=== PATIENT | male | born 1955 | race Caucasian/White ===

== ENCOUNTER 2021-05-12 19:30 | Inpatient (IN) ==
[2021-05-12] MEDS ORDERED: THIAMINE HCL 200 MG in SODIUM CHLORIDE 0.9% 50 ML IV STA (19:44)
[2021-05-12] MEDS ORDERED: dilTIAZem HCl 5 MG/ML 5 ML VIAL IV STA ×2 (19:44→21:18)
[2021-05-12] MEDS ORDERED: SODIUM CHLORIDE 0.9% 1000ML 1,000 ML IV SCH (19:45)
--- NOTE | 2021-05-12 19:54 | Emergency Department Note ---
Impression & Plan Atrial fibrillation with RVR ED Provider Note NAME: GISELE HODGES AGE: 65 SEX: M : 1955 ARRIVES VIA: Walk-In INFORMANT: Patient, ED PROVIDER(S): Mahad Pike DO CHIEF COMPLAINT: Palpitations HPI: The patient is a 65-year-old male who presented to the emergency department for evaluation of palpitations. The patient has been experiencing palpitations over the course of the last week. He states his symptoms are waxing and waning. He started noticing difficulty breathing especially with exertion. He notices no fever or cough. He denies having any chest pain. He has been noticing that his heart rate is a regular and fast. He has never had a history of a dysrhythmia in the past. He was not seen by his family doctor for the symptoms. The patient does not take any cardiac medications. He does admit to drinking alcohol daily. He did not have any alcohol today however. The patient denies having any syncope. He denies having any fever or swelling in his legs. He has had no cough. The patient did present to the [facility] and was sent to the emergency department for further evaluation. ROS: See a the patient is a 65-year-old male who presented to the emergency department for an evaluation of heart palpitations. sonja HPI for pertinent positives & negatives. A total of 10 systems reviewed and were otherwise negative. PAST MEDICAL HISTORY: See Below PAST SURGICAL HISTORY: See Below FAMILY HISTORY: See Below SOCIAL HISTORY: See Below HOME MEDICATIONS: See Below ALLERGIES: See Below VITALS: See Below PHYSICAL EXAMINATION: GENERAL: Patient is awake alert in no acute distress patient is resting comfortably and showing no signs of anxiety EYES: The conjunctivae are clear. The pupils are round and reactive. EARS, NOSE, MOUTH AND THROAT: The nose is without any evidence of any deformity. Mucous membranes are moist. Tongue is midline. NECK: The neck is nontender and supple. RESPIRATORY: Normal respiratory effort is noted there is no evidence of wheezing rhonchi or rales CARDIOVASCULAR: Tachycardic and irregular heart sounds were noted to auscultation. There was no definite murmur. GASTROINTESTINAL: The abdomen is soft. Abdomen is nontender. MUSCULOSKELETAL/EXTREMITIES: There is no evidence of gross deformity full range of motion is noted in the hips and shoulders. SKIN: There is no obvious evidence of any rash. There are no petechiae, pallor or cyanosis noted. NEUROLOGIC: Patient is awake alert and oriented x3. MEDICAL DECISION MAKING: The patient is a 65-year-old male who presented to the emergency department for an evaluation of palpitations. The patient has a history of daily alcohol use. He does not have a history of atrial fibrillation. The patient started noticing palpitations and went to [facility]. He was sent directly to the emergency department for an evaluation of atrial fibrillation which would be a new diagnosis for him. He was treated with IV fluids and IV calcium channel blockers in the emergency department. He was reevaluated multiple times. I discussed the patient's laboratory and radiographic studies with him. Given his findings I [facility] to evaluate the patient in the emergency department for further management and disposition. Triage Nursing notes reviewed. Prior medical records reviewed Vital Signs: reviewed and remarkable for tachycardia. Differential diagnosis: Premature contractions, electrolyte abnormality, cardiac dysrhythmia, thyroid dysfunction, pulmonary embolism, infection, gastrointestinal, as well as other pathologies. ER treatment provided: See below Diagnostics interpreted by me: ECG: EKG was obtained in the emergency department. My interpretation is atrial fibrillation with RVR. Rate was [address] segment abnormalities were noted. This was compared to the tracing it was obtained at [facility] this evening. No significant changes were noted. Cardiac Monitoring: An order was placed for continuous cardiac monitoring. The monitor shows a rate of 107 bpm with atrial fibrillation rhythm. Laboratory studies: As stated above and show below. Imaging studies: See below Consultation(s): 2149: I discussed this case with Dr. Pina who [facility] They will evaluate the patient in the emergency department for further management and disposition. ED COURSE: Procedures: none PDMP:reviewed and no issues Critical Care: I have personally spent greater than 35 minutes of critical care time in the direct management of this patient. This includes bedside care, interpretation of diagnostic studies, and testing, discussion with consultants, patient, and family members, and other required patient management activities. This 35 minutes is in excess of all separately billable procedures. Past Med/Surg History Medical History History of head injury Social History Smoking Status: Never smoker Hx Alcohol Use: Yes Alcohol type: wine Alcohol Intake Frequency: 4 or More x per/Week Feels Safe at Home: Yes Allergies Allergies Allergy/AdvReac Type Severity Reaction Status Date / Time No Known Allergies Allergy Unverified 05/12/21 20:27 Home Meds Home Medications Medication Instructions Recorded Confirmed ibuprofen 200 mg tablet 800 mg PO Q6H PRN 05/12/21 05/12/21 paroxetine HCl 20 mg tablet 20 mg PO DAILY 05/12/21 05/12/21 Results & Data (ED) Vital Signs Vital Signs - 24 hr 05/12/21 19:32 05/12/21 19:46 05/12/21 19:48 Temperature 36.4 C L Temperature Source Temporal Artery Scan Pulse Rate 129 H 149 H Pulse Rate [Apical] Pulse Rate from SpO2 Sensor 108 H Pulse Rhythm Irregular Respiratory Rate 18 13 Respiratory Effort / Characteristics Non-Labored Spontaneous Respiratory Depth Normal Blood Pressure 129/86 128/104 H Blood Pressure [Left Arm] Blood Pressure Mean 100 112 Blood Pressure Mean [Left Arm] Pulse Oximetry 98 98 96 Oxygen Delivery Method Room Air Room Air Sepsis Recent Fever Within 48 Hours No Sepsis New/Unexplained Change in Mental Status N/A Sepsis Action Taken by Nursing No Action Required 05/12/21 20:23 05/12/21 21:30 05/12/21 22:00 Temperature Temperature Source Pulse Rate 143 H 128 H Pulse Rate [Apical] Pulse Rate from SpO2 Sensor 100 H 114 H Pulse Rhythm Respiratory Rate 22 21 Respiratory Effort / Characteristics Non-Labored Spontaneous Respiratory Depth Normal Blood Pressure 141/103 H 123/93 Blood Pressure [Left Arm] Blood Pressure Mean 115 103 Blood Pressure Mean [Left Arm] Pulse Oximetry 97 93 98 Oxygen Delivery Method Room Air Sepsis Recent Fever Within 48 Hours Sepsis New/Unexplained Change in Mental Status Sepsis Action Taken by Nursing 05/12/21 22:20 05/12/21 22:22 05/12/21 23:14 Temperature 37.2 C Temperature Source Oral Pulse Rate 124 H 134 H Pulse Rate [Apical] 109 H Pulse Rate from SpO2 Sensor 81 Pulse Rhythm Respiratory Rate 22 16 Respiratory Effort / Characteristics Non-Labored Spontaneous Respiratory Depth Normal Blood Pressure 147/104 H Blood Pressure [Left Arm] 103/74 Blood Pressure Mean Blood Pressure Mean [Left Arm] 83 Pulse Oximetry 97 98 Oxygen Delivery Method Room Air Sepsis Recent Fever Within 48 Hours Sepsis New/Unexplained Change in Mental Status Sepsis Action Taken by Nursing 05/13/21 00:27 Temperature 36.8 C Temperature Source Oral Pulse Rate 107 H Pulse Rate [Apical] Pulse Rate from SpO2 Sensor Pulse Rhythm Respiratory Rate 16 Respiratory Effort / Characteristics Respiratory Depth Blood Pressure 113/80 Blood Pressure [Left Arm] Blood Pressure Mean Blood Pressure Mean [Left Arm] Pulse Oximetry 98 Oxygen Delivery Method Room Air Sepsis Recent Fever Within 48 Hours Sepsis New/Unexplained Change in Mental Status Sepsis Action Taken by Correction Medications Current Medication List: was personally reviewed by me Laboratory Data Attestation: I reviewed the patient's lab results. Result diagrams: 05/12/21 19:45 05/12/21 19:45 Lab Results 05/12/21 05/12/21 05/12/21 Range/Units 19:45 19:45 19:45 WBC 9.43 (4.8-10.8) K/uL RBC 5.09 (4.7-6.1) M/uL Hgb 16.1 (14.0-18.0) g/dL Hct 46.7 (42-52) % MCV 91.7 (80-100) fL MCH 31.6 (25-34) pg MCHC 34.5 (32-36) g/dL RDW Std Deviation 44.0 (36.4-46.3) fL RDW Coeff of Rey 13.0 (11.5-14.5) % Plt Count 278 (130-400) K/uL MPV 10.1 (7.4-10.4) fL Immature Gran % (Auto) 0.1 % Neut % (Auto) 53.3 % Lymph % (Auto) 38.0 % [place] % (Auto) 5.9 % Eos % (Auto) 2.4 % Baso % (Auto) 0.3 % Neut # (Auto) 5.02 (1.4-6.5) K/uL Lymph # (Auto) 3.58 H (1.2-3.4) K/uL [place] # (Auto) 0.56 (0.11-0.59) K/uL Eos # (Auto) 0.23 (0-0.5) K/uL Baso # (Auto) 0.03 (0-0.2) K/uL Immature Gran # (Auto) 0.01 (0.00-0.02) K/uL PT 10.6 (9.0-12.0) Seconds INR 1.0 (0.9-1.1) APTT 27.6 (21.0-31.0) Seconds PTT Ratio 1.0 Sodium 139 (136-145) mmol/L Potassium 3.7 (3.5-5.1) mmol/L Chloride 108 H (98-107) mmol/L Carbon Dioxide 29 (21-32) mmol/L Anion Gap 2.0 L (3-11) BUN 17 (7-18) mg/dl Creatinine 1.25 (0.6-1.4) mg/dl Est Cr Clr Drug Dosing 70.3 ml/min Est GFR ( Amer) 70.6 ml/min Est GFR (Non-Af Amer) 60.9 ml/min BUN/Creatinine Ratio 13.6 (10-20) Glucose 91 (70-99) mg/dl Calcium 9.3 (8.5-10.1) mg/dl Magnesium 2.7 H (1.8-2.4) mg/dl Total Bilirubin 0.7 (0.2-1) mg/dl AST 23 (15-37) U/L ALT 40 (12-78) U/L Alkaline Phosphatase 74 (45-117) U/L Troponin I < 0.015 (0-0.045) ng/ml Total Protein 8.0 (6.4-8.2) gm/dl Albumin 4.2 (3.4-5.0) gm/dl Globulin 3.8 (2.5-4.0) gm/dl Albumin/Globulin Ratio 1.1 (0.9-2) TSH 2.670 (0.300-4.500) uIu/ml Urine Color Urine Appearance (Clear) Urine pH (4.5-7.5) Ur Specific [place] (1.000-1.030) Urine Protein (Negative) Urine Glucose (UA) (Negative) Urine Ketones (Negative) Urine Blood (Negative) Urine Nitrite (Negative) Urine Bilirubin (Negative) Urine Urobilinogen (Negative) Ur Leukocyte Esterase (Negative) COVID-19 Eval Order SARS-CoV-2 (PCR) (Negative) 05/12/21 05/12/21 05/12/21 Range/Units 19:55 19:55 22:40 WBC (4.8-10.8) K/uL RBC (4.7-6.1) M/uL Hgb (14.0-18.0) g/dL Hct (42-52) % MCV (80-100) fL MCH (25-34) pg MCHC (32-36) g/dL RDW Std Deviation (36.4-46.3) fL RDW Coeff of Rey (11.5-14.5) % Plt Count (130-400) K/uL MPV (7.4-10.4) fL Immature Gran % (Auto) % Neut % (Auto) % Lymph % (Auto) % [place] % (Auto) % Eos % (Auto) % Baso % (Auto) % Neut # (Auto) (1.4-6.5) K/uL Lymph # (Auto) (1.2-3.4) K/uL [place] # (Auto) (0.11-0.59) K/uL Eos # (Auto) (0-0.5) K/uL Baso # (Auto) (0-0.2) K/uL Immature Gran # (Auto) (0.00-0.02) K/uL PT (9.0-12.0) Seconds INR (0.9-1.1) APTT (21.0-31.0) Seconds PTT Ratio Sodium (136-145) mmol/L Potassium (3.5-5.1) mmol/L Chloride (98-107) mmol/L Carbon Dioxide (21-32) mmol/L Anion Gap (3-11) BUN (7-18) mg/dl Creatinine (0.6-1.4) mg/dl Est Cr Clr Drug Dosing ml/min Est GFR ( Amer) ml/min Est GFR (Non-Af Amer) ml/min BUN/Creatinine Ratio (10-20) Glucose (70-99) mg/dl Calcium (8.5-10.1) mg/dl Magnesium (1.8-2.4) mg/dl Total Bilirubin (0.2-1) mg/dl AST (15-37) U/L ALT (12-78) U/L Alkaline Phosphatase (45-117) U/L Troponin I (0-0.045) ng/ml Total Protein (6.4-8.2) gm/dl Albumin (3.4-5.0) gm/dl Globulin (2.5-4.0) gm/dl Albumin/Globulin Ratio (0.9-2) TSH (0.300-4.500) uIu/ml Urine Color Yellow Urine Appearance Clear (Clear) Urine pH 5.5 (4.5-7.5) Ur Specific [place] 1.026 (1.000-1.030) Urine Protein Negative (Negative) Urine Glucose (UA) Negative (Negative) Urine Ketones Trace H (Negative) Urine Blood Negative (Negative) Urine Nitrite Negative (Negative) Urine Bilirubin Negative (Negative) Urine Urobilinogen Negative (Negative) Ur Leukocyte Esterase Negative (Negative) COVID-19 Eval Order Covid19 at [facility] SARS-CoV-2 (PCR) NEGATIVE (Negative) Administered Medications Metoprolol Tartrate (Metoprolol Tartrate 25 Mg Tab) 25 mg PO BID MAUDE Stop: 06/11/21 22:29 Last Admin: 05/12/21 22:34 Dose: 25 mg Documented by: [id number] Discontinued Medications Diltiazem HCl (Diltiazem Hcl 5 Mg/Ml 5 Ml Vial) 10 mg IV NOW STA Stop: 05/12/21 19:45 Last Admin: 05/12/21 19:50 Dose: 10 mg Documented by: [id number] Cosigned by: [id number] Diltiazem HCl (Diltiazem Hcl 5 Mg/Ml 5 Ml Vial) 10 mg IV NOW STA Stop: 05/12/21 21:19 Last Admin: 05/12/21 21:25 Dose: 10 mg Documented by: [id number] Cosigned by: [id number] Sodium Chloride (Nss 1000ml) 1,000 mls @ 999 mls/hr IV .Q1H1M MAUDE Stop: 05/12/21 20:45 Last Infusion: 05/12/21 21:07 Dose: 0 mls/hr Documented by: [id number] Admin: 05/12/21 19:50 Dose: 999 mls/hr Documented by: [id number] Thiamine HCl 200 mg/ Sodium (Chloride) 52 mls @ 208 mls/hr IV NOW STA Stop: 05/12/21 19:58 Last Infusion: 05/12/21 21:07 Dose: 0 mls/hr Documented by: [id number] Admin: 05/12/21 20:22 Dose: 208 mls/hr Documented by: [id number] Metoprolol Tartrate (Metoprolol Tartrate 1 Mg/Ml Vial) 5 mg IV NOW STA Stop: 05/12/21 21:47 Last Admin: 05/12/21 22:22 Dose: 5 mg Documented by: [id number] Imaging Data Radiologist's Impression: Chest X-Ray 05/12/21 19:44 SINGLE VIEW CHEST CLINICAL HISTORY: Fatigue and weakness. FINDINGS: An AP, portable, upright chest radiograph is obtained. No prior studies are available for comparison at the time of dictation. The examination is degraded by portable technique and patient rotation. The heart is enlarged. The pulmonary vasculature is noncongested. The lungs and pleural spaces are clear. No pneumothorax is seen. The bony thorax is grossly intact. IMPRESSION: Mild cardiomegaly with no active disease in the chest. ACT 112: Negative or not required by law. Electronically signed by: Rey Corona M.D. 05/12/2021 8:42 PM Discharge Plan Visit Data Chief Complaint: Cardiac Assessment Stated Complaint: FATIGUE, REFERRED BY DOCTOR ED Provider: Mahad Pike Discharge Problem: Atrial fibrillation with RVR Patient Disposition: Being Evaluated by Hospitalist Condition: Good Discharge Instructions Interventions: ED Discharge Assessment Last Done: 05/13/21 00:27 Forms Stand Alone Forms: Enval Prescriptions Prescriptions: No Action paroxetine HCl 20 mg Tablet 20 mg PO DAILY RF: 0 ibuprofen 200 mg Tablet 800 mg PO Q6H PRN (Reason: fever/pain) RF: 0 Referrals Referrals: PCP,NO [Primary Care Provider] -
[2021-05-12 20:02] LABS: Basophils # (auto) 0.03 K/uL (0-0.2); Basophils % (auto) 0.3 %; Eosinophils # (auto) 0.23 K/uL (0-0.5); Eosinophils % (auto) 2.4 %; Hematocrit (blood only) 46.7 % (42-52); Hemoglobin 16.1 g/dL (14.0-18.0); Immature Granulocytes # (auto) 0.01 K/uL (0.00-0.02); Immature Granulocytes % (auto) 0.1 %; Lymphocytes # (auto) 3.58 K/uL (1.2-3.4); Mean Corpuscular Hemoglobin 31.6 pg (25-34); Mean Corpuscular Hgb Conc 34.5 g/dL (32-36); Mean Corpuscular Volume 91.7 fL (80-100); Mean Platelet Volume 10.1 fL (7.4-10.4); Monocytes # (auto) 0.56 K/uL (0.11-0.59); Monocytes % (auto) 5.9 %; Neutrophils # (auto) 5.02 K/uL (1.4-6.5); Neutrophils % (auto) 53.3 %; Platelet Count 278 K/uL (130-400); Red Blood Count 5.09 M/uL (4.7-6.1); White Blood Count 9.43 K/uL (4.8-10.8)
[2021-05-12 20:17] LABS: Partial Thromboplastin Time 27.6 Seconds (21.0-31.0); Prothrombin Time 10.6 Seconds (9.0-12.0)
[2021-05-12 20:25] LABS: Alanine Aminotransferase 40 U/L (12-78); Albumin Level 4.2 gm/dl (3.4-5.0); Aspartate Aminotransferase 23 U/L (15-37); BUN Creatinine Ratio 13.6 (10-20); Blood Urea Nitrogen 17 mg/dl (7-18); Calcium 9.3 mg/dl (8.5-10.1); Carbon Dioxide 29 mmol/L (21-32); Chloride 108 mmol/L (98-107); Creatinine Clr Calc Pharmacy 70.3 ml/min; Est GFR (African American) 70.6 ml/min; Est GFR (Non-African American) 60.9 ml/min; Glucose 91 mg/dl (70-99); Magnesium 2.7 mg/dl (1.8-2.4); Potassium 3.7 mmol/L (3.5-5.1); Sodium 139 mmol/L (136-145)
[2021-05-12 20:36] LABS: Albumin Globulin Ratio 1.1 (0.9-2); Alkaline Phosphatase 74 U/L (45-117); Bilirubin,Total 0.7 mg/dl (0.2-1); Globulin 3.8 gm/dl (2.5-4.0); Troponin I < 0.015 ng/ml (0-0.045)
--- NOTE | 2021-05-12 20:43 | XRay Report ---
SINGLE VIEW CHEST CLINICAL HISTORY: Fatigue and weakness. FINDINGS: An AP, portable, upright chest radiograph is obtained. No prior studies are available for c omparison at the time of dictation. The examination is degraded by portable technique and patient rot ation. The heart is enlarged. The pulmonary vasculature is noncongested. The lungs and pleural spaces are clear. No pneumothorax is seen. The bony thorax is grossly intact. IMPRESSION: Mild cardiomegaly with no active disease in the chest. ACT 112: Negative or not required by law. Electronically signed by: Rey Corona M.D. 05/12/2021 8:42 PM
[2021-05-12] MEDS ORDERED: METOPROLOL TARTRATE 1 MG/ML VIAL IV STA (21:46)
--- NOTE | 2021-05-12 22:12 | History & Physical Report ---
Date of Service May 12, 2021 Assessment & Plan (1) Atrial fibrillation with RVR: Plan: 65 yo M admitted for new onset AFib with RVR. AFib with RVR: No history of heart palpitations or known AFib prior to this admission. HR 120s on my interview; metoprolol IV 5mg now as well as metoprolol 25mg PO BID to start now. Monitor BP and HR and give further PRNs as indicated and able to tolerate. Likely discharge on rate control. Heparin gtt no bolus started. ChadsVasc score of 0, unlikely to require AC on discharge. Echo in AM. Depression: Continue home Paxil. Alcohol use: 2 drinks daily, corroborated by . Low suspicion of holiday heart; low suspicion of need for AWSS protocol. Code Status: FULL CODE FEN: Regular DVT ppx: Heparin gtt Dispo: PCU Telemetry History of Present Illness Chief Complaint: heart palpitations Primary Care Provider: NO PCP 65 yo M Hx depression/anxiety presented to the ER for 1 week of intermittent heart palpitations, with associated sweating, dizziness, and fatigue during those episodes. No recent illnesses. Does drink alcohol, 2 drinks nightly with ; no changes in typical use. Has not endorsed chest pain or trouble breathing. No family history of AFib to his knowledge. In the ER found to have HR 140s with AFib on EKG. Labwork without abnormality, COVID 19 negative. Did receive diltiazem IV push 10mg x2 with decrease in HR to 110-120s. On my interview patient is asymptomatic after receiving diltiazem. Allergies Allergy/AdvReac Type Severity Reaction Status Date / Time No Known Allergies Allergy Unverified 05/12/21 20:27 Home Medications Medication Instructions Recorded Confirmed Type ibuprofen 200 mg tablet 800 mg PO Q6H PRN 05/12/21 05/12/21 History paroxetine HCl 20 mg tablet 20 mg PO DAILY 05/12/21 05/12/21 History Past Med/Surg History Medical History History of head injury Social History Smoking Status: Never smoker Do You Dip or Chew Tobacco: No; Hx Alcohol Use: Yes Alcohol type: wine Alcohol Intake Frequency: 4 or More x per/Week Hx Substance Use: No Preferred Language: Lithuanian Communication Ability: Effective Review Engineer Required: No Beliefs That Will Affect Care: None Current Living Situation: Spouse Other Information That Helps Us Care for You: No Feels Safe at Home: Yes Safety Concerns: Feels Safe At This Time Assistive Devices: Denture - Upper, Denture - Lower and Glasses Review of Systems Review of Systems: All systems reviewed & are unremarkable except as noted in HPI & below Constitutional: no fever, no chills and no malaise Respiratory: no cough and no dyspnea Cardiovascular: no chest pain, no palpitations and no edema Gastrointestinal: no abdominal pain, no constipation and no diarrhea/loose stools Physical Exam Constitutional: WD/WN, vitals as above Eyes: PERRL, conjunctivae normal, anicteric sclerae ENMT: external ear and nose normal, oropharynx normal Neck: normal visual inspection Respiratory: normal respiratory effort, lungs clear to auscultation Cardiovascular: Rate/Rhythm: + irregularly irregular Heart Sounds: no murmur Extremities: no edema Gastrointestinal (Abdomen): normal bowel sounds, soft, nontender, no hepatosplenomegaly Musculoskeletal: no cyanosis or clubbing, extremities motor strength 5/5 Skin: no rashes, warm and dry Neurologic: Normal speech. Motor and sensation grossly intact Psychiatric: A+Ox3, euthymic affect Results & Data Results & Data ([facility]) Vital Signs (Past 12 Hours) Vital Signs Temp Pulse Resp BP Pulse Ox 05/12/21 21:30 128 H 21 123/93 93 05/12/21 20:23 143 H 22 141/103 H 97 05/12/21 19:48 96 05/12/21 19:46 149 H 13 128/104 H 98 05/12/21 19:32 36.4 C L 129 H 18 129/86 98 Supervising Physician Co-Signing Physician Notes Attending addendum: I have physically seen this patient, have supervised the medical residents activities, and agree with the H&P unless as otherwise noted. Assessment and Plan: Atrial fibrillation with RVR, new onset- The patient will be admitted to telemetry for serial cardiac enzymes, serial EKG's, cardiac rhythm monitoring and a 2-D echocardiogram with Dopplers. Given metoprolol 5 mg IV, with simultaneous started metoprolol 25 mg p.o. twice daily. Lopressor 5 mg IV every 4 hours as needed heart rate greater than 110 Continue heparin drip begun in ED Target potassium greater than or equal to 4, magnesium greater than or equal to 2 Consult cardiology Remaining orders and notations as noted Resident Activity Tracking Resident Involvement: Resident Care Provided Care Provided: Adult [facility]
[2021-05-12] MEDS ORDERED: METOPROLOL TARTRATE 25 MG TAB PO SCH (22:30)
[2021-05-12 23:02] LABS: Appearance Urine Clear (Clear); Bilirubin Urine Negative (Negative); Blood Urine Negative (Negative); Color Urine Yellow; Glucose Urine UA Negative (Negative); Ketones Urine Trace (Negative); Leukocyte Esterase Urine Negative (Negative); Nitrite Urine Negative (Negative); Protein Urine Negative (Negative); Specific Gravity Urine 1.026 (1.000-1.030); Urobilinogen Urine Negative (Negative); pH Urine 5.5 (4.5-7.5)
[2021-05-13] MEDS ORDERED: ACETAMINOPHEN 325 MG TAB PO PRN (00:55)
[2021-05-13] MEDS ORDERED: ONDANSETRON INJ 2 MG/ML 2 ML VIAL IV PRN (00:55)
[2021-05-13] MEDS ORDERED: METOPROLOL TARTRATE 1 MG/ML VIAL IV PRN ×2 (00:55→10:05)
--- NOTE | 2021-05-13 06:49 | Hospitalist Progress Note ---
Date of Service May 13, 2021 Assessment & Plan (1) Atrial fibrillation with RVR: Plan: Yosef is a 65-year-old gentleman with a notable history of depression who presents to [facility] for palpitations, subsequently found to be in A. fib with RVR. He is hemodynamically stable. New-onset Atrial Fibrillation with RVR No history of heart palpitations or known AFib prior to this admission. No h/o lung disease. Lower suspicion for MOHSEN. Lytes normal. TSH normal. Lipids acceptable. A1c 5.4%. Echo demonstrating MR with LV hypokinesis and LA enlargement - suspect AF is secondary to valvular disease Increase metoprolol tartrate to 75mg PO b.i.d. Lopressor 5mg IV q4h p.r.n. for HR > 110 Although CHADSVASC is ~1 with LV dysfunction, suspect risk is higher given mechanism of AFib and dilated LA -- to have risk/benefit discussion RE: anticoagulation initiation Will require non-urgent outpatient evaluation by cardiology upon discharge for valvular replacement Maintain K > 4, Mg > 2 Heart Failure with Reduced Ejection Fraction Echocardiogram demonstrating global left ventricular hypokinesis, LVEF 35-40%, alongside mild to moderate mitral regurgitation and MILD dilation of LA, RA Left ventricular dysfunction/hypokinesis likely secondary to mild-moderate MR Initiate lisinopril 2.5mg PO daily --> if pressures stable overnight, can increase to 5mg Euvolemic on exam, but symptomatic Depression: Continue home Paxil. Code Status: FULL CODE FEN: Regular DVT ppx: pLov Dispo: PCU Telemetry Admission and Anticipated Discharge Date Admission Date: May 12, 2021 Supervising Physician Co-Signing Physician Notes I personally examined the patient and verified all loja points of history and exam, discussed case, and agree with decision making with Dr Baker. Feeling about the same as when he came in. Is able to walk, but then has significant dyspnea on exertion. Extensive discussion with patient and wifeoutlined diagnoses, what they mean, and what the plans are. Vitals noted, in general he is awake and alert no distress. HEENT normocephalic atraumatic mucous membranes moist. Heart rates are still elevated. Lungs show faint bibasilar rales may be left slightly more than right. Otherwise clear. No accessory muscle use. No focal neuro deficits. New onset atrial fibrillation related to mitral valve regurgitation, with concomitant systolic CHF (acute versus acute on slowly worsening chronic) present on admissioncontinue to work on rate controlescalating metoprolol through the day, given that it was not helping enough, digoxin loading (both due to his low EF and wanting to avoid diltiazem if possible, and also because of wanting to reduce afterload and digoxin being pressure neutral). Afterload reduction with ARASH inhibitorconsider Entresto if possible. Discussed anticoagulation, even though he is a [id number] of 1 given that that 1 relates to LV dysfunction/mitral regurg/left atrial enlargementwe discussed that really probably he would be better off being anticoagulated. We discussed the controversy of DOAC's technically being not for valvular A. fib, but discussing risk and benefit of utilizing this anyway versus Coumadin. No dumont to making this decision given his overall risk is not overwhelmingly high. Initial goal will be rate control, and as long as he is able to get around with reasonably well-controlled dyspnea, then work towards fixing the mitral valve regurg in the near future. Lasix x1 to alleviate the pulmonary edema. Continue to follow closely. DVT prophylaxisLovenox Otherwise as above. Subjective NAEO. Rates persistently between 110-120+ on Tele. Reports feelingreports feeling well overall this morning. No discomfort. No palpitations. Does say that if he were to get up and try to walk around, he would probably feel short of breath. He also knows "if I were to go up at for the stairs, I would definitely need a bench." Good appetite. No nausea vomiting. He does reports twice and chills over the last week. No illness like symptoms. No cough. Denies being told he snores. No history smoking. No history of lung disease. No history of renal problems Review of Systems Review of Systems: As per HPI Physical Exam Physical Exam: General: Well appearing 65yoM in NAD HEENT: NCAT. Eyes - Sclera are white, anicteric, and without injection. PERRL. EOMs display full ROM bilaterally. Mouth - MMM with no tonsillar edema or exudates. Nose - nasal turbinates are uninflamed and without discharge. Ears - External ears appears healthy b/l with no erythema or rashes; TMs displayed white reflex b/l and are non-bulging, uninflamed, and reveal no signs of fluid accumulation. Neck - supple and without LAD. Thyroid - no appreciable goiter or nodules. Cardiac: Tachyarrhythmic; S1 and S2 present with no murmurs, rubs, or gallops. JVP approx. 3 fingerbreadths above the R clavicle. No peripheral edema. Pulmonary: Good respiratory effort with symmetric expansion of the chest. No use of accessory muscles. Lungs were clear to auscultation bilaterally with no crackles or wheezes. Abdominal: Normoactive bowel sounds. Abdomen was soft, nondistended, and non- tender to palpation. No hepatomegaly or splenomegaly. Extremities: Upper and lower extremities are warm and well perfused. Capillary refill assessed in UE was < 3 sec. Psych: Well-developed, well-nourished, appropriately dressed for occasion. Behavior is cooperative and appropriate. Affect is WNL. Insight is appropriate. Results & Data Results & Data ([facility]) Vital Signs (Past 12 Hours) Vital Signs Temp Pulse Pulse Resp BP BP Pulse Ox 05/13/21 03:00 36.6 C 85 16 116/78 98 05/13/21 00:55 36.3 C L 05/13/21 00:52 109 H 05/13/21 00:47 36.3 C L 127 H 16 124/82 95 05/13/21 00:27 36.8 C 107 H 16 113/80 98 05/12/21 23:14 37.2 C 109 H 16 103/74 98 05/12/21 22:22 134 H 147/104 H 05/12/21 22:20 124 H 22 97 05/12/21 22:00 98 05/12/21 21:30 128 H 21 123/93 93 05/12/21 20:23 143 H 22 141/103 H 97 05/12/21 19:48 96 05/12/21 19:46 149 H 13 128/104 H 98 05/12/21 19:32 36.4 C L 129 H 18 129/86 98 Resident Activity Tracking Resident Involvement: Resident Care Provided Care Provided: Adult Hospital Medicine
[2021-05-13] MEDS ORDERED: METOPROLOL TARTRATE 1 MG/ML VIAL IV STA (07:37)
[2021-05-13] MEDS: PARoxetine HCL 20 MG TAB PO SCH (08:04)
[2021-05-13] MEDS ORDERED: METOPROLOL TARTRATE 50 MG TAB PO SCH (09:00)
[2021-05-13 09:02] LABS: Estimated Average Glucose 108 mg/dl; Hemoglobin A1C 5.4 % (4.5-5.6)
[2021-05-13 09:07] LABS: Chol HDL Ratio 3; Cholesterol 120 mg/dl (0-200); HDL Cholesterol 41 mg/dl; LDL Cholesterol Calculated 61 mg/dl; Triglycerides 92 mg/dl (0-150); VLDL Cholesterol 18 mg/dl
--- NOTE | 2021-05-13 09:32 | Electrocardiogram Report ---
Test Reason : Blood Pressure : / mmHG Vent. Rate : 156 BPM Atrial Rate : 127 BPM P-R Int : 000 ms QRS Dur : 088 ms QT Int : 296 ms P-R-T Axes : 000 042 061 degrees QTc Int : 477 ms Atrial fibrillation with rapid ventricular response Nonspecific ST abnormality Abnormal ECG No previous ECGs available Confirmed by Junior Richardson ([id number]) on 05/13/2021 9:32:27 AM Referred By: REFERRED SELF Confirmed By:Leif Richardson
--- NOTE | 2021-05-13 10:27 | Electrocardiogram Report ---
Test Reason : Blood Pressure : / mmHG Vent. Rate : 116 BPM Atrial Rate : 107 BPM P-R Int : 000 ms QRS Dur : 088 ms QT Int : 338 ms P-R-T Axes : 000 068 073 degrees QTc Int : 469 ms Atrial fibrillation with rapid ventricular response Abnormal ECG When compared with ECG of 12-MAY-2021 19:45, (unconfirmed) No significant change was found Confirmed by Junior Richardson ([id number]) on 05/13/2021 10:26:56 AM Referred By: REFERRED SELF Confirmed By:Leif Richardson
--- NOTE | 2021-05-13 14:06 | XCELERA ---
[id number]
[2021-05-13] MEDS ORDERED: FUROSEMIDE 20 MG in SYRINGE 0 ML IV ONE (17:15)
[2021-05-13] MEDS: METOPROLOL TARTRATE 25 MG TAB PO SCH (17:28)
[2021-05-13] MEDS: ENOXAPARIN INJ 40 MG/0.4 ML SYR SQ SCH (17:29)
--- NOTE | 2021-05-13 18:25 | Billing Data ---
Date of Service May 13, 2021 Coding Level of Care Code 55452 Subseq Hosp Care Lvl 3
[2021-05-13] MEDS ORDERED: DIGOXIN 0.25 MG TAB PO ONE (18:27)
[2021-05-13] MEDS: lisinopril 2.5 MG TAB PO SCH (21:32)
--- NOTE | 2021-05-13 21:49 | Billing Data ---
Date of Service May 13, 2021 Coding Level of Care Code 58299 Initial Inpt Care Lvl 3
[2021-05-14] MEDS ORDERED: DIGOXIN 0.125 MG TAB PO ONE (00:30)
[2021-05-14 05:44] LABS: BUN Creatinine Ratio 12.2 (10-20); Calcium 8.1 mg/dl (8.5-10.1); Creatinine Clr Calc Pharmacy 73.3 ml/min; Est GFR (African American) 74.1 ml/min; Magnesium 2.3 mg/dl (1.8-2.4); Potassium 3.7 mmol/L (3.5-5.1)
[2021-05-14 05:45] LABS: Phosphorus 3.5 mg/dl (2.5-4.9)
--- NOTE | 2021-05-14 07:34 | Electrocardiogram Report ---
Test Reason : Blood Pressure : / mmHG Vent. Rate : 110 BPM Atrial Rate : 100 BPM P-R Int : 000 ms QRS Dur : 092 ms QT Int : 342 ms P-R-T Axes : 000 044 029 degrees QTc Int : 462 ms Atrial fibrillation with rapid ventricular response Low voltage QRS Abnormal ECG When compared with ECG of 13-MAY-2021 06:37, No significant change was found Confirmed by Junior Richardson ([id number]) on 05/14/2021 7:33:47 AM Referred By: REFERRED SELF Confirmed By:Leif Richardson
[2021-05-14] MEDS ORDERED: DIGOXIN 250 MCG in SYRINGE 9 ML IV ONE (07:45)
[2021-05-14] MEDS: PARoxetine HCL 20 MG TAB PO SCH (08:19)
[2021-05-14] MEDS: METOPROLOL TARTRATE 25 MG TAB PO SCH ×2 (08:19→19:32)
[2021-05-14] MEDS ORDERED: ENOXAPARIN INJ 40 MG/0.4 ML SYR SQ SCH (09:00)
--- NOTE | 2021-05-14 11:31 | Hospitalist Progress Note ---
Date of Service May 14, 2021 Assessment & Plan (1) Atrial fibrillation with RVR: Plan: Yosef is a 65-year-old male with a PMHx significant for depression was admitted to [facility] on 05/12 for atrial fibrillation with rapid ventricular response. New-onset Atrial Fibrillation with RVR No history of heart palpitations or known AFib prior to this admission. No h/o lung disease. Lower suspicion for MOHSEN. Lytes normal. TSH normal. Lipids acceptable. A1c 5.4%. TTE showing EF35-40% with MR with LV hypokinesis, apical hypokinesis and LA enlargement - suspect a-fib 2/2 ischemic cardiomyopathy +/- valvular disease - Lexiscan ordered to assess for reproducible ischemia - continue metoprolol tartrate 75mg PO BID - Lopressor 5mg IV Q4H PRN for HR > 110 - continue Digoxin 0.25mg PO daily, starting tomorrow - Digoxin level today was 1.1 (therapeutic) - will require additional trough before discharge - CHADSVASC is 1 given new HFrEF - plan to initiate anti-coagulation while hospitalized (Warfarin vs Eliquis - patient and are still deciding on which they prefer) HFrEF New diagnosis this hospitalization. Suspect ischemic cardiomyopathy although has minimal risk factors for this and had a negative Troponin on admission despite being in a-fib with RVR. - appears euvolemic on exam - continue Lisinopril 2.5mg PO daily - continue Metoprolol as stated above - f/u with HF clinic after discharge Depression - Continue home Paxil Code Status: FULL CODE FEN/GI: Regular DVT ppx: Lovenox Dispo: PCU with tele Admission and Anticipated Discharge Date Admission Date: May 12, 2021 Supervising Physician Co-Signing Physician Notes I personally examined the patient and verified all loja points of history and exam, discussed case, and agree with decision making with Dr Tovar Still with some fatigue and dyspnea on exertion, but far better than yesterday. Discussed plans, patient expresses good understanding, all questions answered to the best my ability. Vitals noted, in general he is awake and alert pleasant no distress. HEENT norm ocephalic atraumatic mucous membranes moist. Breathing unlabored no accessory muscle use good effort. Neuro without focal deficits. New onset A. fib -Likely related to mitral regurg -Rate control improvingmetoprolol about as high as we can go given his blood pressures, although sometimes pressures are variable and possibly we can increase to 100 twice daily. That said, given that his rates were unacceptably high, he was about as far as we could push with the metoprolol, and diltiazem would be less favorable due to his low EF, digoxin addedthis has affected some improvement, continue to titrate. If he does not have good rate control by tomorrow a.m., that would be a reasonable "breakpoint" to consider consulting cardiology for assistance -While his [id number] is 1, given that that one-point also relates to a process that has a dilated left atrium, which would be where clots would form, we discussed that he really probably warrants anticoagulation more than most people who have a [id number] of 1. He agrees. We had further discussions on the fact that he is technically valvular A. fib, and therefore a DOAC would be off label, but that largely to the best of my knowledge, this is more due to measures taken for FDA approval than evidence suggesting a DOAC would be less efficacious. At any rate, given that it would be off label, we also discussed Coumadin as a "on label" alternativegiven that he is not overtly high risk, he is considering his options, and his is thinking things through as well. In this respect we discussed that it would make sense to probably just pick a direction prior to discharge so that it does not "slip through the cracks" -Ultimately anticipate a need to pursue cardiothoracic surgery to improve his mitral valve, which will likely be beneficial overall Mild acute systolic CHFmight have been combined systolic and diastolic given his ratespresent on admissionrelated to A. fib and low EF. Improved with Lasix. No clear need for further Lasix at this time. -Afterload reductioncurrently lisinopril, anticipate ramipril at discharge. Consider Entresto if it is affordable Apical focal wall motion abnormality noted on echoI really doubt this is ischemic, given his overall lack of risk factors for vascular disease, as well as the fact that by history it sounds like he was tachycardic for a week prior to admission and his troponin was undetectable. That said certainly, when we are contemplating valve surgery, it makes sense to rule out ischemia as a concomitant problemnuclear medicine stress test ordered. (Ordered nuclear rather than stress echo given he already has apical wall motion abnormalities, and I would suspect that would make interpretation a bit more difficult; conversely, if he shows good perfusion even on his resting images on the nuclear study in the area of wall motion abnormality, it would make it almost certain that this is just stretched related to the valvulopathy and A. fib) Subjective Patient remains in a-fib; HR persistently >120 this AM and therefore received third part of Digoxin loading dose. Patient reports feeling well overall although still feels mildly SOB when ambulating. Denies fever/chills, chest pain, palpitations, SOB, cough, N/V, abdominal pain, rash. Review of Systems Review of Systems: All systems reviewed & are unremarkable except as noted in Subjective Physical Exam Physical Exam: General: A&Ox3. NAD. Cooperative. HEENT: Atraumatic, normocephalic. Pulm: CTAB A&P. -wheezes, -rales, -rhonchi. Symmetrical chest rise. No increase work of breathing. No respiratory distress. Cardiac: RRR, -mrg. Radial pulses intact and symmetrical. Abdominal: soft, non-tender, non-distended, BS x 4 Results & Data Results & Data ([facility]) Vital Signs (Past 12 Hours) Vital Signs Temp Pulse Pulse Resp BP Pulse Ox 05/14/21 08:18 97 H 05/14/21 07:54 97 H 05/14/21 07:30 36.7 C 77 18 107/76 94 05/14/21 04:00 36.8 C 56 L 20 101/84 97 05/14/21 00:43 103 H 05/14/21 00:38 108 H Resident Activity Tracking Resident Involvement: Resident Care Provided Care Provided: Adult Hospital Medicine
[2021-05-14] MEDS ORDERED: METOPROLOL TARTRATE 1 MG/ML VIAL IV PRN (12:39)
[2021-05-14] MEDS: ENOXAPARIN INJ 40 MG/0.4 ML SYR SQ SCH (16:18)
--- NOTE | 2021-05-14 16:52 | Billing Data ---
Date of Service May 14, 2021 Coding Level of Care Code 74487 Subseq Hosp Care Lvl 3
[2021-05-14] MEDS: lisinopril 2.5 MG TAB PO SCH (19:31)
[2021-05-15 06:50] LABS: BUN Creatinine Ratio 12.6 (10-20); Calcium 8.3 mg/dl (8.5-10.1); Creatinine Clr Calc Pharmacy 75.8 ml/min; Est GFR (African American) 77.2 ml/min; Est GFR (Non-African American) 66.7 ml/min; Magnesium 2.4 mg/dl (1.8-2.4); Potassium 4.1 mmol/L (3.5-5.1)
[2021-05-15 06:51] LABS: Phosphorus 3.3 mg/dl (2.5-4.9)
--- NOTE | 2021-05-15 08:12 | Hospitalist Progress Note ---
Date of Service May 15, 2021 Assessment & Plan (1) Atrial fibrillation with RVR: Plan: Yosef is a 65-year-old male with a PMHx significant for depression was admitted to [facility] on 05/12 for atrial fibrillation with rapid ventricular response. New-onset Atrial Fibrillation with RVR - No history of heart palpitations or known AFib prior to this admission. No h/o lung disease. Lytes normal. TSH normal. Lipids acceptable. A1c 5.4%. TTE showing EF35-40% with MR with LV hypokinesis, apical hypokinesis and LA enlargement - suspect a-fib 2/2 ischemic cardiomyopathy +/- valvular disease - Lexiscan ordered to assess for reproducible ischemia -- results pending - Cardiology consulted -- appreciate recs - Overnight pulse ox to evaluate for MOHSEN - Start systemic anticoagulation - YG cardioversion planned for tomorrow - Metoprolol tartrate increased to 100mg PO BID -- plan to change to metoprolol succinate at this dose upon DC - Lopressor 5mg IV Q4H PRN for HR > 110 - Digoxin today discontinued - will require additional trough before discharge - CHADSVASC is 1 given new HFrEF - Anti-coagulation initiated today using Xarelto HFrEF New diagnosis this hospitalization. Suspect ischemic cardiomyopathy although has minimal risk factors for this and had a negative Troponin on admission despite being in a-fib with RVR. - appears euvolemic on exam - continue Lisinopril 2.5mg PO daily - continue Metoprolol as stated above - f/u with HF clinic after discharge Depression - Continue home Paxil Code Status: FULL CODE FEN/GI: Regular DVT ppx: anticoagulated with Xarelto Dispo: PCU with tele Admission and Anticipated Discharge Date Admission Date: May 12, 2021 Supervising Physician Co-Signing Physician Notes Patient seen and examined with PGY-2 Dr. Carr. Agree with history, exam findings, assessment, and plan of care as outlined. In brief, Mr. Ibanez is a 65 year old male with hx of depression admitted with afib with RVR. Feeling ok today. No chest pain or dyspnea. Vital signs and nursing notes reviewed. Irregular heart rhythm. Regular rate. Labs and imaging reviewed. 1. Afib with RVR. New. TTE with EF 35-40%, MR, LV hypokinesis, apical hypokinesis and LA enlargement. ?underlying ischemic cardiomyopathy. Lexiscan completed, but report pending. Continue metoprolol tartrate 75mg BID. Stopped digoxin. CHADS-VASC=1. Started Eliquis, but will switch to Xarelto. Will obtain 30 day sample from cardiology given lack of insurance. Plans for TTE and possible cardioversion tomorrow with cardiology. Plan for noc ox as well to determine if desat/MOHSEN may be contributing to new onset afib. 2. New onset heart failure with reduce ejection fraction. Continue Lisinopril 2.5mg and metoprolol. Outpatient follow up with HF clinic. 3. Depression. Stable. Continue Paxil. 4. Lack of health insurance. Discussed with case management. Has been referred for financial assistance. Does live in [facility] so may be a candidate to receive care at [facility]. Dispo: pending TTE and cardioversion tomorrow. Possible discharge tomorrow. Subjective Patient seen at bedside this AM. No complaints or concerns now or overnight. He did continue to have elevated HR up to 118 overnight. He denies symptoms. Seen after evaluation by washer repairman. Updated on plans including cardioversion tomorrow. was on phone as well and all their questions/concerns were addre ssed to their satisfaction. Review of Systems Review of Systems: As per HPI Physical Exam Physical Exam: General: A&Ox3. NAD. Cooperative. HEENT: Atraumatic, normocephalic. Pulm: CTAB A&P. -wheezes, -rales, -rhonchi. Symmetrical chest rise. No increase work of breathing. No respiratory distress. Cardiac: RRR, -mrg. Radial pulses intact and symmetrical. Abdominal: soft, non-tender, non-distended, BS x 4 Results & Data Results & Data ([facility]) Vital Signs (Past 12 Hours) Vital Signs Temp Pulse Pulse Resp BP Pulse Ox 05/15/21 07:28 36.9 C 75 20 128/79 95 05/15/21 07:21 117 H 05/15/21 03:48 37 C 77 18 123/90 93 05/14/21 23:26 37.1 C 79 18 132/92 95 Resident Activity Tracking Resident Involvement: Resident Care Provided Care Provided: Adult [facility]
--- NOTE | 2021-05-15 10:49 | Cardiology Consultation ---
Date of Consultation May 15, 2021 Assessment & Plan (1) Atrial fibrillation with RVR: His changed to atrial fibrillation likely accounts for his symptoms leading up to admission. Unclear etiology. He does have biatrial dilation on echocardiography. He is not appear to have a history of hypertension or other cardiac disease. He does not have severe valvular disease. It is possible that he has occult sleep apnea. We could consider continuous pulse oximetry overnight in the hospital. He is symptomatic from the arrhythmia and would likely benefit from return to sinus rhythm. Unfortunately, he has not been adequately anticoagulated he will require at least 3 more weeks of anticoagulation prior to cardioversion. We could also consider a YG cardioversion depending on the patient's wishes. I would agree with initiating systemic anticoagulation with either warfarin or 1 of the novel agents. His renal function is normal and Eliquis or Xarelto would be good choices. His rate control appears to be sub optimal although adequate. I think increasing his metoprolol to 100 mg twice daily would be a good intervention. Based on his reduced LV systolic function changing this to metoprolol succinate at and equal dose at the time of discharge would be recommended. (2) Valvular heart disease: Mild to moderate mitral regurgitation and mild aortic regurgitation. Not likely to have caused his symptoms or cardiomyopathy. (3) Cardiomyopathy: Unclear etiology. With regional wall motion abnormalities there is some concern for ischemic heart disease. However, he does not have significant risk factors and did not endorse symptoms consistent with coronary insufficiency or angina. He is scheduled for a perfusion study today and will await the results. Otherwise would seem reasonable to convert him to metoprolol succinate at discharge and continue his lisinopril. I think is likely that with return to sinus rhythm his ventricle will be normal on re-evaluation in several weeks. Continue anticoagulation and transition to oral agent Increase metoprolol tartrate to 100 mg twice daily Overnight pulse oximetry History of Present Illness Reason for Consultation: Atrial fibrillation, cardiomyopathy Requesting Physician: Carlos Attending Physician: Yordan Gonzalez DO History of Present Illness The patient is a 65-year-old gentleman without a known history of cardiac disease who presented for symptoms of palpitations and presyncope. It seems that for few days leading up to his admission the patient had noticed some irregularity in his heart rate. He also had an element of exercise intolerance and fatigue. He did not describe limiting dyspnea. He had no symptoms of chest discomfort. He did report some dizziness at times and on 1 episode had presyncope. At the time of his evaluation he was noted to be in atrial fibrillation with rapid ventricular response. He was admitted to the hospital and rate control was initiated. Anticoagulation was initiated and an echocardiogram was performed. He was noted to have mildly reduced LV dysfunction and regional wall motion abnormalities. 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 He generally does not have symptoms associated with activity and has a good energy level. He denies any exertional chest pain or limiting dyspnea. He has not had orthopnea or paroxysmal nocturnal dyspnea. He generally does not have a sense of palpitations. He cannot recall ever suffering an episode of true syncope. Since admission he has felt well. He has ambulated around the [place] and does have some mild fatigue but no significant limiting dyspnea. His dizziness has improved. Not always aware of palpitations currently. Allergies Allergy/AdvReac Type Severity Reaction Status Date / Time No Known Allergies Allergy Unverified 05/12/21 20:27 Home Medications Medication Instructions Recorded Confirmed Type ibuprofen 200 mg tablet 800 mg PO Q6H PRN 05/12/21 05/12/21 History paroxetine HCl 20 mg tablet 20 mg PO DAILY 05/12/21 05/12/21 History Patient History Medical History History of head injury Social History Smoking Status: Never smoker Do You Dip or Chew Tobacco: No; Hx Alcohol Use: Yes Alcohol type: wine Alcohol Intake Frequency: 4 or More x per/Week Hx Substance Use: No Preferred Language: Czech Communication Ability: Effective School Attendance Secretary Required: No Beliefs That Will Affect Care: None Current Living Situation: Spouse Other Information That Helps Us Care for You: No Feels Safe at Home: Yes Safety Concerns: Feels Safe At This Time Assistive Devices: None Review of Systems Review of Systems: All systems reviewed & are unremarkable except as noted in HPI & below Physical Exam Physical Exam: The patient is alert and oriented. Mood and affect appeared normal. He answered all questions appropriately. HEENT: Pupils are equal and reactive to light and accommodation. Extraocular movements are intact. The sclerae are anicteric. Neuro: Cranial nerves intact Neck: Patient's neck is supple. He has palpable carotid pulses bilaterally without bruits on auscultation. There is no evidence of jugular venous distention. The thyroid is not enlarged. Lungs: Clear to auscultation bilaterally. He has good air movement without use of accessory muscles. No rales wheezes or rhonchi. Cardiac: Heart demonstrates an irregular rhythm and slightly elevated rate. Normal S1 and S2. No murmurs on examination. Pulses: The patient has palpable radial pulses bilaterally that are equal in intensity Extremities: There was no evidence of hypoperfusion. There is no cyanosis or clubbing. There is no edema. Skin: I did not appreciate any rashes on examination today. Results & Data ([facility]) Vital Signs (Past 12 Hours) Vital Signs Temp Pulse Pulse Resp BP Pulse Ox 05/15/21 07:28 36.9 C 75 20 128/79 95 05/15/21 07:21 117 H 05/15/21 03:48 37 C 77 18 123/90 93 05/14/21 23:26 37.1 C 79 18 132/92 95 Laboratory Results Abnormal Lab Results 05/14/21 05/15/21 12:43 05:44 Sodium 139 Potassium 4.1 Chloride 109 H Carbon Dioxide 27 Anion Gap 3.0 BUN 15 Creatinine 1.16 Est Cr Clr Drug Dosing 75.8 Est GFR ( Amer) 77.2 Est GFR (Non-Af Amer) 66.7 BUN/Creatinine Ratio 12.6 Glucose 90 Calcium 8.3 L Phosphorus 3.3 Magnesium 2.4 Digoxin 1.1 Diagnostic Findings Echocardiogram obtained 05/13/2021: Ejection fraction 35-40%. Mild aortic regurgitation. Biatrial dilation. Mild to moderate mitral regurgitation. Chest x-ray was obtained the time of admission. No active cardiopulmonary disease. PG Care Time/CCT Total # of Minutes Spent Total Time Spent with Patient: Total time spent is greater than 50% in coordination of care (as documented) at patient's floor/unit and/or counseling patient: Coding Diagnoses Atrial fibrillation with RVR I48.91 Valvular heart disease I38 Cardiomyopathy I42.9
[2021-05-15] MEDS ORDERED: REGADENOSON 0.4 MG/5 ML SYR IV ONE (11:32)
[2021-05-15] MEDS: METOPROLOL TARTRATE 25 MG TAB PO SCH (11:51)
[2021-05-15] MEDS: PARoxetine HCL 20 MG TAB PO SCH (12:53)
[2021-05-15] MEDS ORDERED: APIXABAN 5 MG TABLET PO SCH (14:00)
[2021-05-15] MEDS: METOPROLOL TARTRATE 100 MG TAB PO SCH ×2 (14:27→22:49)
[2021-05-15] MEDS ORDERED: DIGOXIN 0.25 MG TAB PO SCH (16:00)
[2021-05-15] MEDS: lisinopril 2.5 MG TAB PO SCH (20:47)
--- NOTE | 2021-05-15 21:09 | Myocardial Perfusion Study ---
Date of Service May 15, 2021 Myocardial Perfusion Study Blk Myocardial Perfusion Study Report [place] Act 112: Negative ONE DAY NUCLEAR MEDICINE LEXISCAN TECHNETIUM 99M MYOCARDIAL PERFUSION SCAN Indication: Cardiomyopathy. Baseline ECG: Atrial fibrillation with ventricular rate of 114, no significant ST abnormalities. Stress ECG: No Lexiscan induced ST changes. Persistent atrial fibrillation, HR edmund from 114 to 151 representing 96% MPHR. Peak BP 110/81 Technique: For the stress portion of the study 27.5 mCi of Technetium 99m Cardiolite IV was injected at 12: 00 on 05/15/2021. 30 minutes following the injection, imaging of the heart was performed in multiple projections. For the rest portion of the study, 11.0 mCi of Technetium 99m Cardiolite was injected IV at 10: 02. One hour following the injection, imaging of the heart was performed in the same projections. Findings: Rotating raw images were reviewed in detail. Potential sources of attenuation include minimal diaphragmatic attenuation, vertical motion on stress images, and minimal gut uptake impacting the inferior imaging border of the heart. No significant extracardiac pathologic uptake. Short axis, vertical long axis and horizontal long axis images were reviewed in detail. No visual TID. Small, mild, reversible perfusion defect involving apical septal/inferior segments summed difference score 3. Normal LV size. EDV 83 ml. Calculated EF 40%. Abnormal septal motion co nsistent with conduction abnormality. Mild anterior hypokinesis, moderate apical hypokinesis. SUMMARY: 1. Mild Lexiscan induced perfusion defect involving apical inferior/septal segments consistent with a small amount of distal single vessel ischemia. Low risk study. 2. Normal LV size. LVEF 40% with abnormal septal motion and mild to moderate anterior wall, apical segment hypokinesis. 3. Persistent atrial fibrillation with RVR. Negative stress ECG for Lexiscan induced ischemia. [facility] Myocardial perfusion code Procedure Code Procedure 1: Myocardial Perfusion Codes: 00128 Cardiovascular Stress Test, multiple Procedure 2: Myocardial Perfusion Codes: 78430 Cardiovascular Stress Test, interpretation and report
[2021-05-16] MEDS ORDERED: RIVAROXABAN 20 MG TAB PO ONE
--- NOTE | 2021-05-16 07:17 | Anesthesiology Consultation ---
Date of Service May 16, 2021 Assessment & Plan (1) Encounter for pre-operative examination: Chart Review Chart Review: Acceptable Risk for Surgery and Patient NOT seen in Pre Admission Testing History Surgery Operation Date: 05/16/21 10:30 Proposed Procedures p Transesophageal Echo w/Anesthesia - Avni Richardson MD s YG/Cardioversion w/Anesthesia Sedation - Avni Richardson MD Height/Weight Height: 6 ft 2 in Weight: 88.8 kg Allergies Allergy/AdvReac Type Severity Reaction Status Date / Time No Known Allergies Allergy Unverified 05/12/21 20:27 Medications Home Medications Medication Instructions Recorded Confirmed Last Taken ibuprofen 200 mg tablet 800 mg PO Q6H PRN 05/12/21 05/12/21 05/12/21 800 mg paroxetine HCl 20 mg tablet 20 mg PO DAILY 05/12/21 05/12/21 05/12/21 Active Medications Generic Name Dose Route Start Last Admin Trade Name Freq PRN Reason Stop Dose Admin Lisinopril 2.5 mg 05/13/21 21:00 05/15/21 20:47 Lisinopril 2.5 Mg Tab PO 06/12/21 20:59 2.5 mg HS MAUDE Administration Metoprolol Tartrate 100 mg 05/15/21 13:30 05/15/21 22:49 Metoprolol Tartrate 100 Mg Tab PO 06/14/21 13:29 100 mg BID MAUDE Administration Paroxetine HCl 20 mg 05/13/21 09:00 05/15/21 12:53 Paroxetine Hcl 20 Mg Tab PO 06/12/21 08:59 20 mg DAILY MAUDE Administration Past Medical History Medical History (Updated 05/16/21 @ 07:17 by Fred Mcfadden MD) Atrial fibrillation with RVR Cardiomyopathy History of head injury Valvular heart disease Exercise / Class Metabolic Activity II 4-5 Yardwork/Stairs/Walk up hill Past Anesthesia History No Hx of Anesthesia Complications and No Family Hx of Anesthesia Complications History of PONV No Hx of PONV and No Hx of Motion Sickness Social History Smoking Status: Never smoker Do You Dip or Chew Tobacco: No Hx Alcohol Use: Yes Alcohol type: wine alcohol intake frequency: 0-2 drinks per day Hx Substance Use: No substance use type: does not use Physical Exam Vital Signs Last Vital Signs Temp 36.7 C 05/16/21 03:22 Pulse 103 H 05/16/21 03:22 Resp 12 05/16/21 03:22 BP 114/73 05/16/21 03:22 Pulse Ox 96 05/16/21 03:22 Testing Laboratory Results 05/12/21 19:45 05/15/21 05:44 PT 10.6 Seconds (9.0-12.0) 05/12/21 19:45 INR 1.0 (0.9-1.1) 05/12/21 19:45 APTT 27.6 Seconds (21.0-31.0) 05/12/21 19:45 Hemoglobin A1c 5.4 % (4.5-5.6) 05/13/21 08:18 Urine Color Yellow 05/12/21 22:40 Urine Appearance Clear (Clear) 05/12/21 22:40 Urine pH 5.5 (4.5-7.5) 05/12/21 22:40 Ur Specific [place] 1.026 (1.000-1.030) 05/12/21 22:40 Urine Protein Negative (Negative) 05/12/21 22:40 Urine Glucose (UA) Negative (Negative) 05/12/21 22:40 Urine Ketones Trace (Negative) H 05/12/21 22:40 Urine Nitrite Negative (Negative) 05/12/21 22:40 Ur Leukocyte Esterase Negative (Negative) 05/12/21 22:40 Electrocardiogram a fib with rvr
--- NOTE | 2021-05-16 08:02 | Cardioversion ---
Date of Service May 16, 2021 PG Electrical Cardioversion Rp Electrical Cardioversion Report Procedure performed: Cardioversion Indication: The patient is a 65-year-old gentleman with a history of persistent atrial fibrillation and associated symptoms. Staff life management teacher: Junior Richardson MD Procedure in detail: The patient was informed of the risks benefits and alternatives to the intended procedure. He understood such which proceed. He was taken to the cardiac catheterization suite holding area. A general anesthetic was administered by the Anesthesiology Service. Once appropriately anesthetized, the patient was cardioverted using 200 joules delivered in a biphasic fashion. This returned the patient to sinus rhythm. The patient tolerated procedure well, there were no immediate complications. Patient was neurologically intact subsequent to the procedure. Impression: Successful cardioversion from atrial fibrillation to normal sinus rhythm Coding Level of Care Code Cardioversion, elective Additional Codes Electrical Cardioversion Report ([id number])
[2021-05-16] MEDS ORDERED: PROPOFOL IV EMULSION 10 MG/ML 20 ML VIAL IV ONE (08:04)
--- NOTE | 2021-05-16 08:22 | Anesthesiology Progress Note ---
Date of Service May 16, 2021 Anesthesia Post Procedure Vital Signs Vital Signs: Temp Pulse Pulse Pulse Resp BP BP 05/16/21 08:15 47 L 18 86/58 L 05/16/21 08:00 42 L 18 92/57 L 05/16/21 07:29 134 H 20 132/78 05/16/21 03:22 36.7 C 103 H 12 114/73 05/16/21 03:11 52 L 05/16/21 00:24 62 05/16/21 00:16 109 H 05/15/21 22:41 36.8 C 16 122/87 05/15/21 21:05 66 05/15/21 19:18 37.1 C 78 18 108/76 05/15/21 16:05 36.4 C L 79 18 133/94 05/15/21 15:42 150 H 05/15/21 14:15 36.3 C L 93 H 20 136/68 Pulse Ox Pulse Ox 05/16/21 08:15 92 05/16/21 08:00 91 05/16/21 07:29 99 05/16/21 03:22 96 05/16/21 03:11 94 05/16/21 00:24 97 05/16/21 00:16 05/15/21 22:41 98 05/15/21 21:05 96 05/15/21 19:18 94 05/15/21 16:05 91 05/15/21 15:42 05/15/21 14:15 94 Transfer of Care Handoff Completed per policy Notes Mental Status: alert / awake / arousable and participated in evaluation Patient Amnestic to Procedure: Yes Nausea / Vomiting: adequately controlled Pain: adequately controlled Airway Patency, RR, SpO2: stable & adequate BP & HR: stable & adequate Hydration State: stable & adequate Anesthetic Complications: no major complications apparent and Pt Satisfied with anesthetic care
[2021-05-16 09:39] LABS: Potassium 4.3 mmol/L (3.5-5.1)
[2021-05-16 09:40] LABS: BUN Creatinine Ratio 12.3 (10-20); Calcium 8.3 mg/dl (8.5-10.1); Creatinine Clr Calc Pharmacy 81.4 ml/min; Est GFR (African American) 84.2 ml/min; Est GFR (Non-African American) 72.7 ml/min
--- NOTE | 2021-05-16 09:41 | Hospitalist Progress Note ---
Date of Service May 16, 2021 Assessment & Plan Admission and Anticipated Discharge Date Admission Date: May 12, 2021 Results & Data Results & Data ([facility]) Vital Signs (Past 12 Hours) Vital Signs Temp Pulse Pulse Pulse Resp BP BP 05/16/21 09:18 36.5 C 48 L 18 110/73 05/16/21 08:45 55 L 18 95/61 L 05/16/21 08:30 46 L 18 91/68 L 05/16/21 08:15 47 L 18 86/58 L 05/16/21 08:00 42 L 18 92/57 L 05/16/21 07:29 134 H 20 132/78 05/16/21 03:22 36.7 C 103 H 12 114/73 05/16/21 03:11 52 L 05/16/21 00:24 62 05/16/21 00:16 109 H 05/15/21 22:41 36.8 C 16 122/87 Pulse Ox Pulse Ox 05/16/21 09:18 93 05/16/21 08:45 95 05/16/21 08:30 92 05/16/21 08:15 92 05/16/21 08:00 91 05/16/21 07:29 99 05/16/21 03:22 96 05/16/21 03:11 94 05/16/21 00:24 97 05/16/21 00:16 05/15/21 22:41 98
[2021-05-16] MEDS ORDERED: CHLORASEPTIC 1.4% SOLN 180 ML BTL MT PRN (09:45)
[2021-05-16] MEDS: PARoxetine HCL 20 MG TAB PO SCH (10:26)
--- NOTE | 2021-05-16 10:52 | Cardiology Progress Note ---
Date of Service May 16, 2021 Assessment & Plan (1) Atrial fibrillation with RVR: Plan: He underwent a successful cardioversion today. How long he will maintain sinus rhythm is unclear. Also unclear regarding the etiology of his atrial fibrillation. In any event, he will continue rivaroxaban for 3-4 weeks. We will see him in the outpatient setting to discuss continued management. I think he would be safe for discharge today. (2) Valvular heart disease: Plan: He seems to have fairly mild mitral regurgitation on echocardiography today. Very mild trace aortic regurgitation. (3) Cardiomyopathy: Plan: His perfusion study yesterday demonstrated only a small area of mild ischemia in the distal inferior wall. This is not likely account for his cardiomyopathy. He has not had symptoms of coronary disease. Very possible that rapid ventricular rates compromised his study or transiently cause some mildly reduced LV function. I think he should be discharged on metoprolol succinate 50 mg daily. He can continue his current dose of lisinopril. He will continue rivaroxaban until seen in the outpatient setting. (4) Bradycardia: Plan: Subsequent to cardioversion he had sinus bradycardia. No symptoms but he has not yet been out of better ambulated. I do not think he requires is much beta- blockade. I think we can reduce his dose to 50 mg of metoprolol succinate daily for discharge. Plan: Continue anticoagulation and transition to oral agent Increase metoprolol tartrate to 100 mg twice daily Overnight pulse oximetry Admission and Anticipated Discharge Date Admission Date: May 12, 2021 Subjective This morning patient claimed he feeling well. He has not ambulated after his cardioversion yet, but did not report any breathing difficulty. Some throat discomfort. No chest pain. No sense of palpitation. Review of Systems Review of Systems: Per HPI Physical Exam Physical Exam: The patient is alert and oriented. Mood and affect appeared normal. He answered all questions appropriately. HEENT: Pupils are equal and reactive to light and accommodation. Extraocular movements are intact. The sclerae are anicteric. Neuro: Cranial nerves intact Lungs: Normal respiratory effort Cardiac: Heart demonstrates a regular rate and rhythm. Normal S1 and S2. No murmurs on examination. Pulses: The patient has palpable radial pulses bilaterally that are equal in intensity Extremities: There was no evidence of hypoperfusion. There is no cyanosis or clubbing. There is no edema. Skin: I did not appreciate any rashes on examination today. Results & Data ([facility]) Vital Signs (Past 12 Hours) Vital Signs Temp Pulse Pulse Pulse Resp BP Pulse Ox 05/16/21 10:36 37.5 C 49 L 18 114/75 95 05/16/21 10:04 36.5 C 46 L 16 112/74 94 05/16/21 09:30 47 L 18 111/75 92 05/16/21 09:18 36.5 C 48 L 18 110/73 93 05/16/21 08:45 55 L 18 95/61 L 95 05/16/21 08:30 46 L 18 91/68 L 92 05/16/21 08:15 47 L 18 86/58 L 92 05/16/21 08:00 42 L 18 92/57 L 91 05/16/21 07:29 134 H 20 132/78 99 05/16/21 03:22 36.7 C 103 H 12 114/73 96 05/16/21 03:11 52 L 05/16/21 00:24 62 05/16/21 00:16 109 H Pulse Ox 05/16/21 10:36 05/16/21 10:04 05/16/21 09:30 05/16/21 09:18 05/16/21 08:45 05/16/21 08:30 05/16/21 08:15 05/16/21 08:00 05/16/21 07:29 05/16/21 03:22 05/16/21 03:11 94 05/16/21 00:24 97 05/16/21 00:16 Laboratory Results Abnormal Lab Results 05/16/21 09:05 Sodium 139 Potassium 4.3 Chloride 109 H Carbon Dioxide 26 Anion Gap 4.0 BUN 13 Creatinine 1.08 Est Cr Clr Drug Dosing 81.4 Est GFR ( Amer) 84.2 Est GFR (Non-Af Amer) 72.7 BUN/Creatinine Ratio 12.3 Glucose 102 H Calcium 8.3 L Diagnostic Findings Echocardiogram obtained 05/13/2021: Ejection fraction 35-40%. Mild aortic regurgitation. Biatrial dilation. Mild to moderate mitral regurgitation. Chest x-ray was obtained the time of admission. No active cardiopulmonary disease. PG Care Time/CCT Total # of Minutes Spent Total Time Spent with Patient: Total time spent is greater than 50% in coordination of care (as documented) at patient's floor/unit and/or counseling patient: Coding Level of Care Code 34374 Subseq Hosp Care Lvl 2 Diagnoses Atrial fibrillation with RVR I48.91 Valvular heart disease I38 Cardiomyopathy I42.9 Bradycardia R00.1
--- NOTE | 2021-05-16 12:44 | Discharge Summary ---
Date of Service May 16, 2021 Admission HPI Per Admitting Provider 65 yo M Hx depression/anxiety presented to the ER for 1 week of intermittent heart palpitations, with associated sweating, dizziness, and fatigue during those episodes. No recent illnesses. Does drink alcohol, 2 drinks nightly with ; no changes in typical use. Has not endorsed chest pain or trouble breathing. No family history of AFib to his knowledge. In the ER found to have HR 140s with AFib on EKG. Labwork without abnormality, COVID 19 negative. Did receive diltiazem IV push 10mg x2 with decrease in HR to 110-120s. On my interview patient is asymptomatic after receiving diltiazem. Admission Exam Per Admitting Provider Constitutional: WD/WN, vitals as above Eyes: PERRL, conjunctivae normal, anicteric sclerae ENMT: external ear and nose normal, oropharynx normal Neck: normal visual inspection Respiratory: normal respiratory effort, lungs clear to auscultation Cardiovascular: Rate/Rhythm: + irregularly irregular Heart Sounds: no murmur Extremities: no edema Gastrointestinal (Abdomen): normal bowel sounds, soft, nontender, no hepatosplenomegaly Musculoskeletal: no cyanosis or clubbing, extremities motor strength 5/5 Skin: no rashes, warm and dry Neurologic: Normal speech. Motor and sensation grossly intact Psychiatric: A+Ox3, euthymic affect Principal Diagnosis Afib with RVR Discharge Exam Constitutional WD/WN, vitals as above Eyes PERRL, conjunctivae normal, anicteric sclerae ENMT external ear and nose normal, oropharynx normal Neck normal visual inspection Respiratory normal respiratory effort, lungs clear to auscultation Cardiovascular Rate/Rhythm: regular rhythm and + bradycardic Heart Sounds: no murmur Extremities: no edema Gastrointestinal (Abdomen) normal bowel sounds, soft, nontender, no hepatosplenomegaly Musculoskeletal no cyanosis or clubbing, extremities motor strength 5/5 Skin no rashes, warm and dry Psychiatric A+Ox3, euthymic affect Discharge Data Allergies Allergy/AdvReac Type Severity Reaction Status Date / Time No Known Allergies Allergy Unverified 05/12/21 20:27 Consultations 05/12/21 21:38 ED Decision to Admit Stat 05/15/21 06:50 Consult Cardiology Routine Procedures Performed Operation Date: 05/16/21 10:30 Actual Procedures p Echo Transesophageal - MD shiraz Ren Cardioversion - MD shiraz Ren Echo Color Flow - Avni Richardson MD Hospital Course (1) Atrial fibrillation with RVR: Yosef is a 65-year-old male with a PMHx significant for depression was admitted to [facility] on 05/12 for atrial fibrillation with rapid ventricular response. New-onset Atrial Fibrillation with RVR - No history of heart palpitations or known AFib prior to this admission No h/o lung disease. Lytes normal. TSH normal. Lipids acceptable. A1c 5.4%. TTE showing EF35-40% with MR with LV hypokinesis, apical hypokinesis and LA enlargement - suspect a-fib 2/2 ischemic cardiomyopathy +/- valvular disease - Lexiscan showing mild Lexiscan induced perfusion defect involving apical inferior/septal segments consistent with a small amount of distal single vessel ischemia. Low risk study. Negative stress ECG for Lexiscan induced ischemia. - Cardiology consulted -- appreciate recs - Overnight pulse ox to evaluate for MOHSEN -- negative for desaturations - Start systemic anticoagulation - YG cardioversion performed with resolution of afib - Discharged on metoprolol succinate 50mg daily per cardiology recs - CHADSVASC is 1 given new HFrEF - Anti-coagulation initiated using Xarelto -- patient provided with samples HFrEF New diagnosis this hospitalization. Suspect ischemic cardiomyopathy although has minimal risk factors for this and had a negative Troponin on admission despite being in a-fib with RVR. - appears euvolemic on exam - Started on Lisinopril 2.5mg PO daily - Metoprolol as stated above - f/u with HF clinic after discharge Depression - Continued home Paxil Dispo: Home - Self Care Total Time Total Time Spent Total Time Spent (In Minutes): see attending attestation Discharge Plan Discharge Items Patient Disposition: Home - Self-Care Reason For Visit: AFIB WITH RVR NEW DX Discharge Diagnosis: AFIB with RVR Condition on Discharge: Good Activity: Per Instructions section Non-emergency contact: Primary Care Provider and Lay Out Drafter Call non-emergency contact if: you have any medication questions and your symptoms worsen Follow-up/Referrals: Avni Richardson MD [Physician] - PCP,NO [Primary Care Provider] - Diet: Regular Addtl Attending Provider Instructions: You were admitted to [facility] due to 1 week of intermittent heart palpitations with sweating, dizziness, and fatigue. You were found to be in atrial fibrillation with rapid ventricular response. As such, control of your heart rate was attempted with medications called metoprolol and digoxin. We were ultimately unable to fully control the heart rate and her cardiology recommendations you were taken for a cardioversion. This achieved control of your atrial fibrillation and converted you to sinus rhythm, however it is unclear whether you will maintain regular rhythm or will at some point go back into atrial fibrillation. Since it is hard to tell, and you won't necessarily feel when you go back into atrial fibrillation, you will be started on a blood thinner to avoid blood clots. This medication is called Xarelto and you will take it daily for the next 3 to 4 weeks. You will also take metoprolol succinate 50 mg daily. You will follow up as an outpatient with cardiology to discuss continued management. Additionally, you had a Lexiscan stress test, which measures heart stress, which showed no concerning findings. Please follow-up with your primary care provider and cardiology as scheduled. If you have any concerning symptoms such as chest pain, or recurrence of the symptoms that brought you in, please call your PCP or electrical accessories ii assembler or come into the emergency department. The phone number for the local no-insurance clinic is . This clinic is called [facility]. They may be able to get you established with their clinic while you work on getting health insurance. Addtl Dehydrator Tender Provider Instructions: Please go to Cardiology office to forklift picker your heart medications. The address is [address] [place] [address]. Pending Studies at Discharge: No Stand-Alone Forms: My [facility], Smoking Cessation Medications and DC Order Prescriptions: New metoprolol succinate 50 mg capsule,sprinkle,ER 24hr 50 mg PO DAILY 30 Days Qty: 30 RF: 0 lisinopril 2.5 mg Tablet 2.5 mg PO HS 30 Days Qty: 30 RF: 0 Xarelto 20 mg Tablet 20 mg PO Q24H 30 Days Qty: 30 RF: 0 Continued paroxetine HCl 20 mg Tablet 20 mg PO DAILY RF: 0 ibuprofen 200 mg Tablet 800 mg PO Q6H PRN (Reason: fever/pain) RF: 0 Discharge Orders: Discharge Order (Routine); Ordered 05/16/21 Ordered By: Ailyn Murphy Admission Data Admit Date/Time: 05/12/21 22:21 Attending Provider: Yordan Gonzalez Admit Provider: Ailyn Murphy Primary Care Provider: PCP,NO Other Providers: Dylon Berry ; Avni Richardson Other Interventions: Discharge Summary Assessment (RN) Last Done: 05/16/21 15:17 Supervising Physician Co-Signing Physician Notes Patient seen and examined independently of PGY-2 Dr. Carr. Agree with history, exam findings, assessment, and plan of care as outlined. In brief, Mr. Ibanez is a 65 year old male with hx of depression admitted with afib with RVR. Feels well. Seen after cardioversion. Vital signs and nursing notes reviewed. Bradycardic. Regular rhythm. Labs and imaging reviewed. 1. Afib with RVR. New. S/p cardioversion on 05/16. TTE with EF 35-40%, MR, LV hypokinesis, apical hypokinesis and LA enlargement. Lexiscan completedno concern for ischemic changes. Metoprolol 50mg. Anticoagulation with Xarelto. Will obtain 30 day sample from cardiology given lack of insurance. Noc ox was unremarkable. 2. New onset heart failure with reduce ejection fraction. Continue Lisinopril 2.5mg and metoprolol. Outpatient follow up with HF clinic. 3. Depression. Stable. Continue Paxil. 4. Lack of health insurance. Discussed with case management. Has been referred for financial assistance. Does live in [facility] so may be a candidate to receive care at [facility]. Dispo: Discharge home today. I personally spent 25 minutes discharge planning for this patient. Discussed follow up with [facility] or PS group. Resident Activity Tracking Resident Involvement: Resident Care Provided Care Provided: Adult Hospital Medicine
[2021-05-16] MEDS: METOPROLOL TARTRATE 100 MG TAB PO SCH (13:40)
--- NOTE | 2021-05-16 15:28 | Electrocardiogram Report ---
Test Reason : Blood Pressure : / mmHG Vent. Rate : 046 BPM Atrial Rate : 046 BPM P-R Int : 132 ms QRS Dur : 096 ms QT Int : 446 ms P-R-T Axes : -16 030 012 degrees QTc Int : 390 ms Sinus bradycardia Nonspecific ST abnormality Abnormal ECG When compared with ECG of 14-MAY-2021 04:26, Sinus rhythm has replaced Atrial fibrillation Vent. rate has decreased BY 64 BPM Confirmed by Junior Richardson ([id number]) on 05/16/2021 3:27:57 PM Referred By: REFERRED SELF Confirmed By:Leif Richardson
--- NOTE | 2021-05-16 17:59 | XCELERA ---
[id number]
[2021-05-16] MEDS ORDERED: METOPROLOL TARTRATE 25 MG TAB PO SCH (21:00)
[2021-05-16] MEDS ORDERED: RIVAROXABAN 20 MG TAB PO SCH (21:00)
== END 2021-05-16 15:47 | disposition home or self-care (01) | DRG 308 ==
LOC: ED 19:30 → 2S 22:21 → SUATTDRO 22:21 → 2S 05-13 00:27

== ENCOUNTER 2022-10-24 13:38 | Inpatient (IN) ==
[2022-10-24] MEDS ORDERED: dilTIAZem HCl 5 MG/ML 5 ML VIAL IV STA (14:06)
[2022-10-24] MEDS ORDERED: dilTIAZem HCl 5 MG/ML 5 ML VIAL IV ONE (14:06)
[2022-10-24] MEDS ORDERED: STAT IV Infusion **Titration per Protocol STA (14:07)
--- NOTE | 2022-10-24 14:11 | XRay Report ---
XR chest 1V portable HISTORY: Shortness of breath. Atypical chest pain. COMPARISON: Chest 05/12/2021. FINDINGS: The lungs are clear. The heart is normal in size. No pleural effusions. No pneumothorax. IMPRESSION: No acute process. ACT 112: Negative or not required by law. Electronically signed by: Ant Peck M.D. 10/24/2022 2:10 PM
--- NOTE | 2022-10-24 14:17 | Emergency Department Note ---
Impression & Plan Atrial fibrillation with rapid ventricular response, CORNEJO (dyspnea on exertion), Elevated troponin I level, Chest pain ED Provider Note Provider: Jose Kirk MD DATE OF SERVICE: 10/24/2022 CHIEF COMPLAINT: Palpitations, fatigue, dyspnea on exertion, chest pain HISTORY OF PRESENT ILLNESS: Patient is a 67-year-old gentleman history of paroxysmal atrial fibrillation presenting here today with his complaining of 2 days of palpitations with some fatigue and dyspnea on exertion. States today his abdomen and chest discomfort. Patient evidently had a prostate biopsy 2 days ago with a [facility]. States shortly after that got home and had the onset of palpitations and fatigue. BRISSA had an outpatient MRI yesterday and noted that last night his heart rate was elevated but finally came in today. States a little bit of chest discomfort. Denies leg swelling. De nies recent URI symptoms, cough, or sore throat. Denies GI symptoms. Denies recent alcohol use. Patient states he is not on anticoagulation. Patient states he has been shocked out of A. fib in the past. PAST MEDICAL HISTORY: As noted above MEDICATIONS: Reviewed, denies anticoagulation SOCIAL HISTORY: Works in [employer], , denies smoking PHYSICAL EXAM: GENERAL: alert and oriented in no acute distress on stretcher Head: normocephalic and atraumatic EYES: No injection, discharge or icterus. NECK: Trachea midline. ENT: Mucous membranes pink and moist. LUNGS: Airway patent. No retractions. Breath sounds clear with good air entry bilaterally. HEART: Irregular regular tachycardic rate and rhythm. No chest wall tenderness ABDOMEN: Soft and non-tender, without guarding or rebound. SKIN: Acyanotic, warm, dry, without rashes EXTREMITIES: Without swelling, tenderness or deformity NEUROLOGICAL: No focal deficits. No aphasia. No facial droop or slurred speech. Ambulatory. EK beats per in atrial fibrillation with rapid ventricular response. No significant acute ST segment elevation with a QTC of 456. Do not see significant ST depression either. CONTINUOUS CARDIAC MONITORING: was ordered and showed a heart rate of 90s-170s bpm in atrial fibrillation Patient's laboratory studies and imaging reviewed. Differential includes Premature contractions, electrolyte abnormality, cardiac dysrhythmia, thyroid dysfunction, pulmonary embolism, infection, gastrointestin al, as well as other pathologies. IMPRESSION/MEDICAL DECISION MAKING: Patient with a history. Some atrial fibrillation appears to flip did after her prostate biopsy 2 days ago but just presenting today. With some chest discomfort as well as shortness of breath/dyspnea on exertion and fatigue. Significantly elevated heart rate. Given some diltiazem IV initially with mild improvement of heart rate. Does not appear to have significant swelling or pulmonary edema consistent with heart failure. Denies recent significant illness, URI symptoms, or alcohol use that may be provoking factors. Electrolytes and thyroid function was sent. Troponin was sent. Hemoglobin sent to exclude anemia. Doubt ACS believe possibly some demand ischemia due to his A. fib with RVR that is been persistent for a day or 2. Patient not significantly hypoxic and I doubt a primary pulmonary etiology to his symptoms such as pneumonia, PE, or pneumothorax. Blood work without anemia or leukocytosis. Thus low suspicion for infection/sepsis. No significant electrolyte abnormality or signs of renal dysfunction. TSH within normal limits doubt thyroid dysfunction. No evidence of transaminitis. Troponin mildly elevated consistent likely with a demand situation given his rapid ventricular response. Heart rate is improving with diltiazem here but still in atrial fibrillation and even at rest with heart rates in the 100s to 110s bpm. Will bring into the hospital for further evaluation. Hospitalist contacted. Patient and updated at bedside. Will defer anticoagulation to the inpatient team for selection. DIAGNOSIS: A. fib with rapid ventricular response, dyspnea exertion, chest discomfort, elevated troponin DISPOSITION: Hospitalist will evaluate Patient was agreeable with this plan. Critical Care I have personally spent 38 minutes of critical care time in the direct management of this patient. This includes bedside care, interpretation of diagnostic studies, and testing, discussion with consultants, patient, and family members, and other required patient management activities. These 38 minutes is in excess of all separately billable procedures. Past Med/Surg History Medical History (Updated 10/24/22 @ 15:40 by Jose Kirk M.D.) Atrial fibrillation with RVR Cardiomyopathy History of head injury Valvular heart disease Social History Smoking Status: Never smoker Hx Alcohol Use: Yes Alcohol type: wine Alcohol Intake Frequency: 4 or More x per/Week Hx Substance Use: No Preferred Language: Turkmen Communication Ability: Effective Tray Service Worker Required: No Beliefs That Will Affect Care: None Current Living Situation: Spouse Feels Safe at Home: Yes Assistive Devices: Denture - Upper and Glasses Allergies Allergies Allergy/AdvReac Type Severity Reaction Status Date / Time No Known Allergies Allergy Unverified 10/24/22 15:31 Home Meds Home Medications Medication Instructions Recorded Confirmed ibuprofen 200 mg tablet 800 mg PO Q6H PRN fever/pain 05/12/21 10/24/22 paroxetine HCl 20 mg tablet 20 mg PO DAILY 05/12/21 10/24/22 Results & Data (ED) Vital Signs Vital Signs - 24 hr 10/24/22 13:39 10/24/22 14:11 10/24/22 14:11 Temperature 36.4 C L Temperature Source Oral Pulse Rate 91 H 132 H Pulse Rate from SpO2 Sensor 103 H Respiratory Rate 20 22 Respiratory Effort / Characteristics Non-Labored Spontaneous Respiratory Depth Normal Blood Pressure 113/81 116/85 Blood Pressure Mean 91 95 Pulse Oximetry 96 94 Oxygen Delivery Method Room Air Sepsis Recent Fever Within 48 Hours No Sepsis New/Unexplained Change in Mental Status No Sepsis Action Taken by Nursing No Action Required 10/24/22 14:15 10/24/22 14:15 10/24/22 14:30 Temperature Temperature Source Pulse Rate 124 H Pulse Rate from SpO2 Sensor 93 H Respiratory Rate 27 H Respiratory Effort / Characteristics Respiratory Depth Blood Pressure 110/81 109/67 Blood Pressure Mean 90 81 Pulse Oximetry 95 Oxygen Delivery Method Sepsis Recent Fever Within 48 Hours Sepsis New/Unexplained Change in Mental Status Sepsis Action Taken by Nursing 10/24/22 14:30 10/24/22 15:15 10/24/22 15:30 Temperature Temperature Source Pulse Rate 124 H 104 H Pulse Rate from SpO2 Sensor 89 Respiratory Rate 30 H 20 Respiratory Effort / Characteristics Respiratory Depth Blood Pressure 125/89 121/82 Blood Pressure Mean 101 95 Pulse Oximetry 96 96 Oxygen Delivery Method Sepsis Recent Fever Within 48 Hours Sepsis New/Unexplained Change in Mental Status Sepsis Action Taken by Nursing 10/24/22 15:45 Temperature Temperature Source Pulse Rate 118 H Pulse Rate from SpO2 Sensor Respiratory Rate 20 Respiratory Effort / Characteristics Respiratory Depth Blood Pressure 118/79 Blood Pressure Mean 92 Pulse Oximetry 96 Oxygen Delivery Method Sepsis Recent Fever Within 48 Hours Sepsis New/Unexplained Change in Mental Status Sepsis Action Taken by Nursing Laboratory Data 10/24/22 14:03 10/24/22 14:03 Lab Results 10/24/22 10/24/22 10/24/22 Range/Units 14:03 14:03 14:03 WBC 7.91 (4.8-10.8) K/ul RBC 5.38 (4.63-6.08) M/uL Hgb 16.5 (14.0-18.0) g/dl Hct 47.1 (40.1-51.0) % MCV 87.5 (80.0-100.0) fL MCH 30.7 (25.0-34.0) pg MCHC 35.0 (32.0-36.0) g/dL RDW Std Deviation 39.0 (36.4-46.3) fL RDW Coeff of Rey 12.4 (11.5-14.5) % Plt Count 288 (130-400) K/uL MPV 9.5 (9.4-12.4) fL Immature Gran % (Auto) 0.3 % Neut % (Auto) 54.8 % Lymph % (Auto) 35.8 % [place] % (Auto) 7.6 % Eos % (Auto) 0.9 % Baso % (Auto) 0.6 % Neut # (Auto) 4.34 (1.4-6.5) K/uL Lymph # (Auto) 2.83 (1.2-3.4) K/uL [place] # (Auto) 0.60 (0.24-0.82) K/uL Eos # (Auto) 0.07 (0-0.50) K/uL Baso # (Auto) 0.05 (0-0.2) K/uL Immature Gran # (Auto) 0.02 (0.00-0.02) K/uL PT 11.4 (9.0-12.0) Seconds INR 1.1 (0.9-1.1) APTT 27.1 (21.0-31.0) Seconds PTT Ratio 1.0 Sodium 139 (136-145) mmol/L Potassium 4.1 (3.5-5.1) mmol/L Chloride 109 H (98-107) mmol/L Carbon Dioxide 24 (21-32) mmol/L Anion Gap 6 (3-11) BUN 20 (6-23) mg/dl Creatinine 1.25 (0.6-1.4) mg/dl Est Cr Clr Drug Dosing 66.6 ml/min Est GFR ( Amer) 69.6 ml/min Est GFR (Non-Af Amer) 60.0 ml/min BUN/Creatinine Ratio 16.0 (10-20) Glucose 105 H (70-99(Fasting)) mg/dl Calcium 9.2 (8.5-10.1) mg/dl Magnesium 2.3 (1.7-2.4) mg/dl Total Bilirubin 1.0 (0.2-1.0) mg/dl AST 15 (13-39) U/L ALT 15 (7-52) U/L Alkaline Phosphatase 52 (34-104) U/L Troponin I High Sens 57.3 H* (0-20) pg/ml Total Protein 6.7 (6.0-8.3) gm/dl Albumin 3.9 (3.4-5.0) gm/dl Globulin 2.8 (2.5-4.0) gm/dl Albumin/Globulin Ratio 1.4 (0.9-2) TSH (0.300-4.500) uIu/ml SARS-CoV-2, RNA, NAAT (NEGATIVE) 10/24/22 10/24/22 Range/Units 14:03 14:20 WBC (4.8-10.8) K/ul RBC (4.63-6.08) M/uL Hgb (14.0-18.0) g/dl Hct (40.1-51.0) % MCV (80.0-100.0) fL MCH (25.0-34.0) pg MCHC (32.0-36.0) g/dL RDW Std Deviation (36.4-46.3) fL RDW Coeff of Rey (11.5-14.5) % Plt Count (130-400) K/uL MPV (9.4-12.4) fL Immature Gran % (Auto) % Neut % (Auto) % Lymph % (Auto) % [place] % (Auto) % Eos % (Auto) % Baso % (Auto) % Neut # (Auto) (1.4-6.5) K/uL Lymph # (Auto) (1.2-3.4) K/uL [place] # (Auto) (0.24-0.82) K/uL Eos # (Auto) (0-0.50) K/uL Baso # (Auto) (0-0.2) K/uL Immature Gran # (Auto) (0.00-0.02) K/uL PT (9.0-12.0) Seconds INR (0.9-1.1) APTT (21.0-31.0) Seconds PTT Ratio Sodium (136-145) mmol/L Potassium (3.5-5.1) mmol/L Chloride (98-107) mmol/L Carbon Dioxide (21-32) mmol/L Anion Gap (3-11) BUN (6-23) mg/dl Creatinine (0.6-1.4) mg/dl Est Cr Clr Drug Dosing ml/min Est GFR ( Amer) ml/min Est GFR (Non-Af Amer) ml/min BUN/Creatinine Ratio (10-20) Glucose (70-99(Fasting)) mg/dl Calcium (8.5-10.1) mg/dl Magnesium (1.7-2.4) mg/dl Total Bilirubin (0.2-1.0) mg/dl AST (13-39) U/L ALT (7-52) U/L Alkaline Phosphatase (34-104) U/L Troponin I High Sens (0-20) pg/ml Total Protein (6.0-8.3) gm/dl Albumin (3.4-5.0) gm/dl Globulin (2.5-4.0) gm/dl Albumin/Globulin Ratio (0.9-2) TSH 0.845 (0.300-4.500) uIu/ml SARS-CoV-2, RNA, NAAT NEGATIVE (NEGATIVE) Administered Medications Diltiazem HCl 125 mg/ Dextrose 125 mls @ 10 mls/hr IV .[id number] [facility]; Protocol Stop: 11/23/22 14:14 Last Titration: 10/24/22 14:49 Dose: 10 mg/hr, 10 mls/hr Documented By: CHARISSE Co-signed By: ADI Admin: 10/24/22 14:19 Dose: 5 mg/hr, 5 mls/hr Documented By: [id number] Co-signed By: CHARISSE Discontinued Medications Diltiazem HCl (Diltiazem Hcl 5 Mg/Ml 5 Ml Vial) Confirm Administered Dose 25 mg IV .ST-MED ONE Stop: 10/24/22 14:07 Last Admin: 10/24/22 14:20 Dose: Not Given Documented By: CHARISSE Diltiazem HCl (Diltiazem Hcl 5 Mg/Ml 5 Ml Vial) 10 mg IV NOW STA Stop: 10/24/22 14:07 Last Admin: 10/24/22 14:09 Dose: 10 mg Documented By: CHARISSE Co-signed By: [id number] Miscellaneous (Stat Iv Infusion Titration Per Protocol) 1 each N/A NOW STA Stop: 10/24/22 14:08 Last Admin: 10/24/22 14:19 Dose: 1 each Documented By: [id number] Imaging Data Radiologist's Impression: Chest X-Ray 10/24/22 13:50 XR chest 1V portable HISTORY: Shortness of breath. Atypical chest pain. COMPARISON: Chest 05/12/2021. FINDINGS: The lungs are clear. The heart is normal in size. No pleural effusions. No pneumothorax. IMPRESSION: No acute process. ACT 112: Negative or not required by law. Electronically signed by: Ant Peck M.D. 10/24/2022 2:10 PM Discharge Plan Visit Data Chief Complaint: Referred by Doctor Stated Complaint: HEART RACING, FATIGUE ED Provider: Jose Kirk Discharge Problem: Atrial fibrillation with rapid ventricular response, CORNEJO (dyspnea on exertion), Elevated troponin I level, Chest pain Patient Disposition: Being Evaluated by Hospitalist Forms Stand Alone Forms: [facility] Prescriptions Prescriptions: No Action paroxetine HCl 20 mg Tablet 20 mg PO DAILY ibuprofen 200 mg Tablet 800 mg PO Q6H PRN (Reason: fever/pain) Referrals Referrals: PCP,NO [Physician] -
[2022-10-24 14:19] LABS: Basophils # (auto) 0.05 K/uL (0-0.2); Basophils % (auto) 0.6 %; Eosinophils # (auto) 0.07 K/uL (0-0.50); Eosinophils % (auto) 0.9 %; Hematocrit (blood only) 47.1 % (40.1-51.0); Hemoglobin 16.5 g/dl (14.0-18.0); Immature Granulocytes # (auto) 0.02 K/uL (0.00-0.02); Immature Granulocytes % (auto) 0.3 %; Lymphocytes # (auto) 2.83 K/uL (1.2-3.4); Lymphocytes % (auto) 35.8 %; Mean Corpuscular Hemoglobin 30.7 pg (25.0-34.0); Mean Corpuscular Volume 87.5 fL (80.0-100.0); Mean Platelet Volume 9.5 fL (9.4-12.4); Monocytes % (auto) 7.6 %; Neutrophils # (auto) 4.34 K/uL (1.4-6.5); Neutrophils % (auto) 54.8 %; Platelet Count 288 K/uL (130-400); RDW Coefficient of Variation 12.4 % (11.5-14.5); Red Blood Count 5.38 M/uL (4.63-6.08); White Blood Count 7.91 K/ul (4.8-10.8)
[2022-10-24] MEDS: dilTIAZem HCL 125 MG in DEXTROSE 5% 100 ML IV SCH (14:19)
[2022-10-24 14:38] LABS: INR 1.1 (0.9-1.1); Partial Thromboplastin Time 27.1 Seconds (21.0-31.0); Prothrombin Time 11.4 Seconds (9.0-12.0)
[2022-10-24 14:48] LABS: Albumin Globulin Ratio 1.4 (0.9-2); Albumin Level 3.9 gm/dl (3.4-5.0); Calcium 9.2 mg/dl (8.5-10.1); Creatinine Clr Calc Pharmacy 66.6 ml/min; Est GFR (African American) 69.6 ml/min; Globulin 2.8 gm/dl (2.5-4.0); Magnesium 2.3 mg/dl (1.7-2.4); Potassium 4.1 mmol/L (3.5-5.1); Total Protein 6.7 gm/dl (6.0-8.3)
[2022-10-24 15:16] LABS: Troponin I High Sensitivity 57.3 pg/ml (0-20)
[2022-10-24] MEDS ORDERED: SODIUM CHLORIDE 0.9% 1000ML 1,000 ML IV ONE (15:16)
--- NOTE | 2022-10-24 15:28 | History & Physical Report ---
Date of Service October 24, 2022 Assessment & Plan (1) Atrial fibrillation with rapid ventricular response: Plan: Patient is 67-year-old male with PMH atrial fibrillation in 2020 status post successful cardioversion, prostate cancer, depression presented to ER with c omplaint of palpitations x 2 days. In ER noted to be in atrial fibrillation rate 140s, BP stable Initial high sensitive troponin: 57. EKG: A. fib RVR, rate 143, nonspecific ST changes. TSH: 0.8 CXR: No acute process. CXR reviewed In ER started on Cardizem bolus and drip with improvement of HR down to high 90s-118 Initial complaint of palpitations, chest pressure have resolved since improved rate control Continue Cardizem IV Trend troponin Echo Heparin IV [id number]: 2 Patient self stopped metoprolol, Xarelto after hospital admission in 2020 Start metoprolol tartrate 25 mg twice daily p.o. Cardiology consult (2) History of cardiomyopathy: Plan: 05/13/2021 echo: EF: 35-40%, mild-moderate MR, mild AR, left and right atrium mildly dilated. 05/16/2021 TTE: Left atrium mildly dilated. No thrombus detected in left atrial appendage, patent foramen ovale. Mild MR Obtain resting echo (3) Prostate cancer: Plan: Had prostate biopsy on 10/22/[address] Burroughs. Patient was treated with prophylactic ciprofloxacin x 3 days. Pathology results pending per outpatient chart review 10/23/2022 MRI prostate per outpatient chart review: Impression: No suspicious lesion in prostate gland. Diffuse patchy T2 hypointense signal throughout the peripheral zone, likely representing prostatitis. There is marked restricted diffusion associated with these areas of abnormal signal, suggesting the prostatitis may be acute. No focal lesions identified. Perirectal fat stranding with small amount of free fluid in the peritoneum and retroperitoneum, which likely represent changes from recent transrectal biopsy. No fluid collection or evidence of rectal wall thickening. Patient reports had hematuria after procedure x2 days. Denies hematuria today. Denies dysuria, pelvic pain, rectal pain, known fever. No leukocytosis UA pending Blood cultures pending We will hold on antibiotics at this time. Monitor CBC in am (4) Depression: Plan: Continue paroxetine DVT Prophylaxis On Heparin IV Full Code as per discussion with pt Follows with Dr Ren for routine care Pt was seen and care coordinated with Dr Bledsoe. See addendum History of Present Illness Chief Complaint: Palpitations Primary Care Provider: Bereket Ren MD Patient is 67-year-old male with PMH atrial fibrillation in 2020 status post successful cardioversion, prostate cancer, depression presented to ER with complaint of palpitations x 2 days. History obtained from patient and chart review. Patient with history initial diagnosis prostate cancer in 2019, was lost to follow-up. Had prostate biopsy on 10/22/[address] Burroughs. Patient was treated with prophylactic ciprofloxacin x 3 days. States following procedure he had generalized fatigue and had mild palpitations. Fatigue continued with increased palpitations. Yesterday patient with chest pressure and felt like chills. Did not take temperature. Denies further chills. Chest pressure continued today and patient presented to ER. Patient with prior episode A. fib RVR in and hospitalized and cardioverted. He was discharged on metoprolol and Xarelto. Patient states he stopped taking it shortly after his he did not feel well however patient states he does not remember his exact symptoms. Denies any noted recurrent palpitations until 2 days ago. Denies diaphoresis, N/V/D/C, MARIE, dizziness, syncope, vision changes, neck pain, orthopnea, cough, sore throat, choking, otalgia, rhinorrhea, abdominal pain, paresthesias, weakness, extremity weakness, extremity edema, rashes, dysuria, pelvic pain, rectal pain. Prior hospitalization records reviewed: 05/13/2021 echo: EF: 35-40%, mild-moderate MR, mild AR, left and right atrium mildly dilated. 05/16/2021 TTE: Left atrium mildly dilated. No thrombus detected in left atrial appendage, patent foramen ovale. Mild MR. Allergies Allergy/AdvReac Type Severity Reaction Status Date / Time No Known Allergies Allergy Unverified 10/24/22 15:31 Home Medications Medication Instructions Recorded Confirmed Type ibuprofen 200 mg tablet 800 mg PO Q6H PRN fever/pain 05/12/21 10/24/22 History paroxetine HCl 20 mg tablet 20 mg PO DAILY 05/12/21 10/24/22 History Past Med/Surg History Medical History (Updated 10/24/22 @ 16:50 by Nadege Leija PA-C) Atrial fibrillation with RVR Cardiomyopathy Depression History of cardiomyopathy History of cardioversion History of head injury Prostate cancer Valvular heart disease Surgical History (Updated 10/24/22 @ 16:41 by Nadege Leija PA-C) History of prostate biopsy Family History (Updated 10/24/22 @ 16:41 by Nadege Leija PA-C) Other Prostate cancer Social History (Updated 10/24/22 @ 16:40 by Nadege Leija PA-C) Smoking Status: Never smoker Hx Alcohol Use: Yes Alcohol type: wine Alcohol Intake Frequency: 4 or More x per/Week Hx Substance Use: No Preferred Language: Martiniquais Communication Ability: Effective [employer] Required: No Beliefs That Will Affect Care: None Current Living Situation: Spouse Other Information That Helps Us Care for You: No Feels Safe at Home: Yes Safety Concerns: Feels Safe At This Time Assistive Devices: Glasses Review of Systems Review of Systems: All systems reviewed & are unremarkable except as noted in HPI & below Physical Exam Physical Exam: General: no distress, WDWN Head: normocephalic, atraumatic Eyes: conjunctiva non-injected, anicteric ENT: normal inspection external ears, nose, mucous membranes moist Neck: supple, trachea midline Lungs: clear, no respiratory distress, no wheezing/rhonchi/rales CV: Irregularly irregular, rate 112, no JVD, no pretibial edema Abd: normal BS, soft, non-tender Ext: no cyanosis, no calf tenderness Neuro: A&O x 3, no focal deficits noted, normal affect Skin: warm, dry Results & Data Results & Data ([facility]) Vital Signs (Past 12 Hours) Vital Signs Temp Pulse Resp BP Pulse Ox O2 Del Method 10/24/22 14:30 124 H 30 H 96 10/24/22 14:30 109/67 10/24/22 14:15 124 H 27 H 95 10/24/22 14:15 110/81 10/24/22 14:11 132 H 22 94 10/24/22 14:11 116/85 10/24/22 13:39 36.4 C L 91 H 20 113/81 96 Room Air Laboratory Results Short CBC 10/24/22 Range/Units 14:03 WBC 7.91 (4.8-10.8) K/ul Hgb 16.5 (14.0-18.0) g/dl Hct 47.1 (40.1-51.0) % Plt Count 288 (130-400) K/uL BMP 10/24/22 14:03 Sodium 139 Potassium 4.1 Chloride 109 H Carbon Dioxide 24 BUN 20 Creatinine 1.25 Glucose 105 H Calcium 9.2 Liver Function 10/24/22 Range/Units 14:03 Total Bilirubin 1.0 (0.2-1.0) mg/dl AST 15 (13-39) U/L ALT 15 (7-52) U/L Alkaline Phosphatase 52 (34-104) U/L Albumin 3.9 (3.4-5.0) gm/dl Diagnostic Findings Chest X-Ray 10/24/22 13:50 XR chest 1V portable HISTORY: Shortness of breath. Atypical chest pain. COMPARISON: Chest 05/12/2021. FINDINGS: The lungs are clear. The heart is normal in size. No pleural effusions. No pneumothorax. IMPRESSION: No acute process. ACT 112: Negative or not required by law. Electronically signed by: Ant Peck M.D. 10/24/2022 2:10 PM ECG Rate (beats per minute): 143 Rhythm: atrial fibrillation Findings: + nonspecific-ST abn Supervising Physician Co-Signing Physician Notes I have seen and examined the patient and have discussed the case with the provider above. I agree with the assessment and plan as stated with the following exceptions. Patient is a 67-year-old man with a history of atrial fibrillation who presents in atrial fibrillation with rapid ventricular response. He reports feeling himself go into A. fib with subsequent chills palpitations and chest pain immediately after his prostate biopsy a couple of days ago. He denies any symptoms of infection otherwise including no fever. He reports having a history of C. difficile infection that was severe and prefers to avoid antibiotics if it can be done. He did receive perioperative ciprofloxacin. After initial treatment with diltiazem in the ER today his heart rate improved and his chest pain resolved. He denies any other concerning symptoms at this time. Review of other triggers of A. fib include daily alcohol use, reporting 2 glasses of wine per day. He also drinks a big gulp of iced tea but no other sources of caffeine herbal supplements or energy drinks are reported. He has known prostate cancer with a recent rise in PSA prompting this recent biopsy with pathology pending. He has an MRI reporting possible prostatitis however the patient has no symptoms of infection. He denies any other infectious symptoms at this time. On physical exam he is in no acute distress. Cardiac exam reveals S1-S2 heard with an irregular rate and rhythm. There is no murmurs gallops or rubs. Lungs are clear to auscultation throughout. Abdomen soft nontender nondistended skin is warm and dry. He has 2+ peripheral pulses in the radial arteries with an irregular rate. No gross focal neurologic deficit is seen. He is mentating clearly. Work-up today reveals a TSH within normal limits. CBC coags chemistry and liver function are all normal. Highly sensitive troponin is 57 with repeat pending. There is trace blood present in the urine without evidence of infection, expecte d status postbiopsy. Chest x-ray is normal. Overall this is a 67-year-old man with a history of prostate cancer and history of atrial fibrillation noncompliant with anticoagulation or rate control m edication who presents in rapid ventricular response after recent prostate biopsy. He prefers to see the [facility] team including hospitalist and cardiology. Agree with echo and consulting cardiology. Notable history of cardiomyopathy in the past. Will likely need guideline directed medical therapy this admission. For now we are controlling the rate and starting him on anticoagulation with heparin. Troponin is elevated but this appears to be a demand ischemia as his chest pain has resolved and he feels back to normal. We will continue to trend the troponin overnight and monitor on telemetry. He reported some issues with Xarelto historically. He may tolerate apixaban better. Will defer to cardiology for those decisions with the patient when the time comes. DO Rakan
[2022-10-24] MEDS: HEPARIN SODIUM/DEXTROSE 25,000 UNITS/500 ML BAG IV SCH (17:11)
[2022-10-24] MEDS: Heparin IV Adult Wt-Based Standard *NO* Bolus Protocol IV SCH ×3 (17:12→17:19)
[2022-10-24] MEDS ORDERED: POLYETHYLENE (MIRALAX) 17 GM PACK PO PRN (18:33)
[2022-10-24] MEDS ORDERED: ACETAMINOPHEN 325 MG TAB PO PRN (18:33)
[2022-10-24 20:16] LABS: Appearance Urine Clear (Clear); Bacteria Urine Automated Negative (Negative); Bilirubin Urine Negative (Negative); Blood Urine Trace (Negative); Color Urine Yellow; Glucose Urine UA Negative (Negative); Ketones Urine Trace (Negative); Leukocyte Esterase Urine Negative (Negative); Nitrite Urine Negative (Negative); Protein Urine Negative (Negative); Specific Gravity Urine 1.029 (1.000-1.030); Urobilinogen Urine Negative (Negative)
[2022-10-24] MEDS: METOPROLOL TARTRATE 25 MG TAB PO SCH (21:04)
[2022-10-24 23:34] LABS: Partial Thromboplastin Ratio 2.2
[2022-10-24 23:35] LABS: Partial Thromboplastin Time 59.5 Seconds (21.0-31.0)
[2022-10-24] MEDS ORDERED: SODIUM CHLORIDE 0.9% 500 ML IV SCH (23:45)
[2022-10-25 06:01] LABS: Hematocrit (blood only) 42.6 % (40.1-51.0); Hemoglobin 14.7 g/dl (14.0-18.0); Mean Corpuscular Hemoglobin 30.6 pg (25.0-34.0); Mean Corpuscular Hgb Conc 34.5 g/dL (32.0-36.0); Mean Corpuscular Volume 88.8 fL (80.0-100.0); Mean Platelet Volume 9.9 fL (9.4-12.4); Platelet Count 193 K/uL (130-400); RDW Coefficient of Variation 12.4 % (11.5-14.5); RDW Standard Deviation 40.8 fL (36.4-46.3); White Blood Count 8.82 K/ul (4.8-10.8)
[2022-10-25 07:00] LABS: Partial Thromboplastin Time 83.1 Seconds (21.0-31.0)
[2022-10-25] MEDS: PARoxetine HCL 20 MG TAB PO SCH (09:28)
[2022-10-25] MEDS: METOPROLOL TARTRATE 25 MG TAB PO SCH ×3 (09:28→20:02)
[2022-10-25] MEDS: HEPARIN SODIUM/DEXTROSE 25,000 UNITS/500 ML BAG IV SCH ×2 (11:00→14:59)
[2022-10-25] MEDS ORDERED: METOPROLOL TARTRATE 1 MG/ML VIAL IV STA ×2 (11:09→23:04)
--- NOTE | 2022-10-25 12:23 | Hospitalist Progress Note ---
Date of Service October 25, 2022 Assessment & Plan (1) Atrial fibrillation with rapid ventricular response: Plan: 67-year-old male with PMH atrial fibrillation in 2020 status post successful cardioversion, prostate cancer, depression presented to ER with complaint of palpitations x 2 days. In ER noted to be in atrial fibrillation rate 140s, BP stable Initial high sensitive troponin: 57. EKG: A. fib RVR, rate 143, nonspecific ST changes. TSH: 0.8 CXR: No acute process. In ER started on Cardizem bolus and drip with improvement of HR down to high 90s-118 Per tele, patient had 2-3s pause overnight. His cardizem drip was stopped During my evaluation earlier today, he was in Afib in RVR with rates at 140 Change metoprolol tartarate to 25mg q6h Gave IV lopressor 5mg once Continue heparin drip Patient self stopped metoprolol, Xarelto after hospital admission in 2020 Considering overnight tele and old Echo from 2020 showed EF of 35-40, will continue to hold off cardizem drip till Cardiology eval Follow up TTE (2) History of cardiomyopathy: Plan: 05/13/2021 echo: EF: 35-40%, mild-moderate MR, mild AR, left and right atrium mildly dilated. 05/16/2021 TTE: Left atrium mildly dilated. No thrombus detected in left atrial appendage, patent foramen ovale. Mild MR (3) Prostate cancer: Plan: Had prostate biopsy on 10/22/[address] Burroughs. Patient was treated with prophylactic ciprofloxacin x 3 days. On admission, Pathology results was pending per outpatient chart review 10/23/2022 MRI prostate per outpatient chart review: Impression: No suspicious lesion in prostate gland. Diffuse patchy T2 hypointense signal throughout the peripheral zone, likely representing prostatitis. There is marked restricted diffusion associated with these areas of abnormal signal, suggesting the prostatitis may be acute. No focal lesions identified. Perirectal fat stranding with small amount of free fluid in the peritoneum and retroperitoneum, which likely represent changes from recent transrectal biopsy. No fluid collection or evidence of rectal wall thickening. Patient reports post biopsy hematuria had resolved. Denies dysuria, pelvic pain, rectal pain, known fever. No leukocytosis UA not suggestive of UTI (4) Depression: Plan: Continue paroxetine DVT Prophylaxis On Heparin IV Full Code as per discussion with pt Follows with Dr Ren for routine care Admission and Anticipated Discharge Date Admission Date: October 24, 2022 Subjective Patient seen and examined Reports symptoms he had prior to presentation had resolved but also stated that may be due to not moving around much Denied dizziness, palpitations Denied chest pain Denied cough, shortness of breath Denied nausea, vomiting, abd pain, diarrhea Reported post biopsy hematuria had resolved Denied dysuria Physical Exam Constitutional: + well hydrated; no acute distress Eyes: PERRL, conjunctivae normal, anicteric sclerae ENMT: external ear and nose normal, oropharynx normal Respiratory: normal respiratory effort, lungs clear to auscultation Cardiovascular: Rate/Rhythm: + tachycardic and + irregularly irregular S1 S2 Gastrointestinal (Abdomen): normal bowel sounds, soft, nontender, no hepatosplenomegaly Musculoskeletal: no cyanosis or clubbing, extremities motor strength 5/5 Neurologic: PERRL, EOMI, accommodation nl, no face palsy, no dysarthria Psychiatric: A+Ox3, euthymic affect Results & Data Results & Data ([facility]) Vital Signs (Past 12 Hours) Vital Signs Temp Pulse Pulse Resp BP BP Pulse Ox 10/25/22 10:38 36.7 C 84 17 112/71 96 10/25/22 11:47 114 H 112/71 10/25/22 07:32 36.7 C 79 17 100/72 91 10/25/22 04:00 36.9 C 72 18 107/72 95 O2 Del Method 10/25/22 10:38 Room Air 10/25/22 11:47 10/25/22 07:32 Room Air 10/25/22 04:00 Room Air Laboratory Results Abnormal lab results 10/24/22 10/24/22 10/24/22 Range/Units 14:03 19:40 20:38 APTT (21.0-31.0) Seconds Chloride 109 H (98-107) mmol/L Glucose 105 H (70-99(Fasting)) mg/dl Troponin I High Sens 57.3 H* 75.5 H* D (0-20) pg/ml Urine Ketones Trace H (Negative) Urine Blood Trace H (Negative) Urine RBC (Auto) 5-10 H (0-4) /hpf U Epithel Cells (Auto) 5-10 H (0-5) /lpf 10/24/22 10/25/22 10/25/22 Range/Units 22:59 00:48 05:30 APTT 59.5 H* 83.1 H* (21.0-31.0) Seconds Chloride (98-107) mmol/L Glucose (70-99(Fasting)) mg/dl Troponin I High Sens 75.4 H* (0-20) pg/ml Urine Ketones (Negative) Urine Blood (Negative) Urine RBC (Auto) (0-4) /hpf U Epithel Cells (Auto) (0-5) /lpf
[2022-10-25] MEDS: dilTIAZem HCL 125 MG in DEXTROSE 5% 100 ML IV SCH (13:22)
[2022-10-25 13:38] LABS: Partial Thromboplastin Ratio 2.8
[2022-10-25 14:15] LABS: Partial Thromboplastin Time 77.1 Seconds (21.0-31.0)
--- NOTE | 2022-10-25 14:18 | XCELERA ---
[id number]
--- NOTE | 2022-10-25 15:43 | Cardiology Consultation ---
Date of Consultation October 25, 2022 Assessment & Plan (1) Atrial fibrillation with rapid ventricular response: (2) Cardiomyopathy: (3) Elevated troponin I level: (4) Chest pain: (5) Abnormal nuclear stress test: Plan ASSESSMENT/PLAN: 1. Atrial fibrillation with rapid ventricular response: Symptomatic, especially with more elevated rates and with exertion. Onset around 48 hours prior to presentation. Because cannot be completely sure if it was within 48 hours, and now clearly after 48 hours, transesophageal echo ended before cardioversion. We discussed the diagnosis and treatment options. Because he is symptomatic, recommend regaining sinus rhythm. Cardioversion recommended. Risks and benefits of YG and cardioversion were discussed in detail. N.p.o. after midnight with anticipation of performing these procedures tomorrow morning. We will have to evaluate heart rate while in sinus to determine long-term strategy. We discussed beta-miriam, antiarrhythmic therapy, ablation. [id number] is now 1 based on age and would recommend long-term anticoagulation therapy if no contraindication. 2. Cardiomyopathy: Could be secondary to tachycardia however it does not appear as though he has had prolonged episodes of tachycardia for weeks. Low risk myocardial perfusion study in the past. If heart rate will allow, would recommend low-dose metoprolol succinate or carvedilol following cardioversion. He was quite bradycardic following cardioversion in May 2021 while on metoprolol 100 mg twice daily while hospitalized but discharged on 50 mg of metoprolol succinate. He did not follow-up to know what his heart rate was on lower dose beta-miriam. If LV systolic function does not improve as an outpatient, would recommend optimizing medical therapy with ARASH inhibitor as well and consider secondary work-up. He appears euvolemic. 3. Elevated troponin: Likely secondary to elevated heart rate and demand ischemia. 4. Chest pain: Only occurs when heart rate is more significantly elevated. If continues to have such symptoms as an outpatient with medical therapy, will consider pursuing further ischemic evaluation. Fortunately, he has no chest discomfort with climbing stairs and other physical activities when in sinus. 5. Abnormal myocardial perfusion study: Low risk nuclear stress in May 2021. Typically no angina. We will continue to monitor. 6. Disposition: Cardiology will continue to follow. Plan of care communicated with primary hospitalist, Dr. Gonzales, of the primary hospitalist service. Highly complex medical issues. Thank you for allowing me to participate in the care of your patient. Please call for any other questions or concerns. Sincerely, Donny Riggs M.D. History of Present Illness Reason for Consultation: Afib with RVR Requesting Physician: Penny Gonzales MD Attending Physician: Penny Gonzales MD History of Present Illness Mr. Ibanez is a very pleasant 67-year-old gentleman with a history significant for atrial fibrillation, cardiomyopathy, and prostate cancer. He has been seen in the past by Dr. Richardson while hospitalized at [facility] in May of 2021. In May 2021, he presented with atrial fibrillation with rapid ventricular response. He was symptomatic. Echo demonstrated reduced LV systolic function with a reported EF of 35 to 40%. He underwent transesophageal echo and cardioversion and was discharged on metoprolol and Xarelto. He was noted to be bradycardic following cardioversion with heart rates in the 40s and 50s and subsequently, he discontinued Xarelto and metoprolol as he did not feel well after discharge. He never followed up in the cardiology office. He presented again on 10/24/2022 with palpitations and was found to be in atrial fibrillation with rapid ventricular response. He had a prostate biopsy on 10/22/2022 and immediately while leaving the office he developed palpitations. They were noted with exertion. At times he would note palpitations at rest as well. He is asymptomatic currently in bed while still in atrial fibrillation with rapid ventricular response. He also developed substernal chest pressure with the palpitations and dyspnea on exertion. Chest discomfort and dyspnea on exertion are not usual for him. He lives an active lifestyle and denies exertional chest discomfort, shortness of breath, or palpitations typically. He has had some hematuria following prostate biopsy but it has cleared over the past day or so. He denies melena or hematochezia. He denies a history of TIA, stroke, hypertension, diabetes, vascular disease. He has no problems swallowing food and denies a history of esophageal stricture or gastric ulcer. While here, he was treated by the hospitalist service with diltiazem drip. Overnight, he developed transient bradycardia with some brief pauses, less than 3 seconds in duration. Diltiazem drip was then discontinued and he was placed on oral metoprolol tartrate. He has had the following studies/procedures: 1. Echo 05/13/2021 [facility]: Moderately reduced LV systolic function. EF 35 to 40%. Global hypokinesis. Mild biatrial dilation. Mild AI. Mild to moderate MR. RVSP 30-40. 2. Nuclear stress 05/15/21 (Dr. Lopez): Small and mild reversible apical septal/inferior defect. 3. YG 05/16/2021 [facility]: No thrombus within the left atrium. Mild MR. PFO. 4. Cardioversion 05/16/2021 (Dr. Richardson): A. fib converted to sinus with 200 J. 5. Echo 10/25/2022: Normal LV size. EF 40 to 45%. Global hypokinesis. Mild LVH. Mildly dilated RV with mildly reduced systolic function. Mild right atrial dilation. Mild MR. Normal RVSP. PFO. Review of systems: As above. Review of systems otherwise negative/unremarkable. Family history: No known premature CAD. Social history: Denies tobacco or drug abuse. Consumes 2 glasses of wine per day. Lives at home with his . Has 4 children with his . Multiple grandchildren. 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 His was present at the bedside. Allergies Allergy/AdvReac Type Severity Reaction Status Date / Time No Known Allergies Allergy Unverified 10/24/22 15:31 Home Medications Medication Instructions Recorded Confirmed Type ibuprofen 200 mg tablet 800 mg PO Q6H PRN fever/pain 05/12/21 10/24/22 History paroxetine HCl 20 mg tablet 20 mg PO DAILY 05/12/21 10/24/22 History Patient History Medical History (Updated 10/25/22 @ 16:11 by Usama Riggs MD) Atrial fibrillation with RVR Cardiomyopathy Depression History of cardiomyopathy EF 40-45% History of cardioversion History of head injury Prostate cancer Valvular heart disease Surgical History (Updated 10/24/22 @ 16:41 by Nadege Leija PA-C) History of prostate biopsy Family History (Updated 10/24/22 @ 16:41 by Nadege Leija PA-C) Other Prostate cancer Social History (Updated 10/24/22 @ 16:40 by Nadege Leija PA-C) Smoking Status: Never smoker Hx Alcohol Use: Yes Alcohol type: wine Alcohol Intake Frequency: 4 or More x per/Week Hx Substance Use: No Preferred Language: Sudanese Communication Ability: Effective Door To Door Fundraising Collector Required: No Beliefs That Will Affect Care: None Current Living Situation: Spouse Other Information That Helps Us Care for You: No Feels Safe at Home: Yes Safety Concerns: Feels Safe At This Time Assistive Devices: None Physical Exam Physical Exam: Gen.: No acute distress. Alert and oriented. HEENT: Anicteric sclera. Neck: No JVD. No bruits. Normal carotid upstrokes bilaterally. Cardiac: PMI was nondisplaced. No ventricular heave. Irregularly irregular and tachycardic. Normal S1-S2. No murmurs, rubs, or gallops. Pulmonary: Clear to auscultation bilaterally without wheezes, rales, or rhonchi. Abdomen: Soft, nontender, nondistended, with normoactive bowel sounds. No bruits noted. Extremities: 2+ radial pulses bilaterally. 2+ posterior tibialis pulses bilaterally. No edema or cyanosis. Psychiatric: Affect appears appropriate. Results & Data ([facility]) Vital Signs (Past 12 Hours) Vital Signs Temp Pulse Pulse Resp BP BP Pulse Ox 10/25/22 15:19 36.8 C 125 H 18 106/69 94 10/25/22 07:00 108 H 10/25/22 10:38 36.7 C 84 17 112/71 96 10/25/22 11:47 114 H 112/71 10/25/22 07:32 36.7 C 79 17 100/72 91 10/25/22 04:00 36.9 C 72 18 107/72 95 O2 Del Method 10/25/22 15:19 Room Air 10/25/22 07:00 10/25/22 10:38 Room Air 10/25/22 11:47 10/25/22 07:32 Room Air 10/25/22 04:00 Room Air Laboratory Results Laboratory Results - last 24 hr 10/24/22 10/24/22 10/24/22 19:40 20:38 22:59 WBC RBC Hgb Hct MCV MCH MCHC RDW Std Deviation RDW Coeff of Rey Plt Count MPV APTT 59.5 H* PTT Ratio 2.2 Troponin I High Sens 75.5 H* D Urine Color Yellow Urine Appearance Clear Urine pH 5.0 Ur Specific [place] 1.029 Urine Protein Negative Urine Glucose (UA) Negative Urine Ketones Trace H Urine Blood Trace H Urine Nitrite Negative Urine Bilirubin Negative Urine Urobilinogen Negative Ur Leukocyte Esterase Negative Urine WBC (Auto) 1-5 Urine RBC (Auto) 5-10 H U Hyaline Cast (Auto) 1-5 U Epithel Cells (Auto) 5-10 H Urine Bacteria (Auto) Negative 10/25/22 10/25/22 10/25/22 00:48 05:30 05:30 WBC 8.82 RBC 4.80 Hgb 14.7 Hct 42.6 MCV 88.8 MCH 30.6 MCHC 34.5 RDW Std Deviation 40.8 RDW Coeff of Rey 12.4 Plt Count 193 MPV 9.9 APTT 83.1 H* PTT Ratio 3.0 Troponin I High Sens 75.4 H* Urine Color Urine Appearance Urine pH Ur Specific [place] Urine Protein Urine Glucose (UA) Urine Ketones Urine Blood Urine Nitrite Urine Bilirubin Urine Urobilinogen Ur Leukocyte Esterase Urine WBC (Auto) Urine RBC (Auto) U Hyaline Cast (Auto) U Epithel Cells (Auto) Urine Bacteria (Auto) 10/25/22 12:53 WBC RBC Hgb Hct MCV MCH MCHC RDW Std Deviation RDW Coeff of Rey Plt Count MPV APTT 77.1 H* PTT Ratio 2.8 Troponin I High Sens Urine Color Urine Appearance Urine pH Ur Specific [place] Urine Protein Urine Glucose (UA) Urine Ketones Urine Blood Urine Nitrite Urine Bilirubin Urine Urobilinogen Ur Leukocyte Esterase Urine WBC (Auto) Urine RBC (Auto) U Hyaline Cast (Auto) U Epithel Cells (Auto) Urine Bacteria (Auto) Diagnostic Findings Echo report from 10/25/2022 reviewed as noted above. Prior echo report and YG report from another provider reviewed. Cardioversion report reviewed as noted above in HPI. History and physical reviewed. Labs reviewed and notable for mildly elevated troponin, stable renal function, normal blood counts. Nuclear stress report reviewed as noted above in HPI. Chest x-ray image personally reviewed from 10/24/2022: Personal interpretation: no infiltrate or pleural effusion. Radiology interpretation as no acute process. ECGs personally reviewed: ECG 10/24/2022 at 1355: A. fib with RVR 143 bpm. PVC versus aberrantly conducted complex. Nonspecific ST abnormality. ECG 10/25/2022 at 6:28 AM: A. fib with RVR 129 bpm. Medications Administered Current Inpatient Medications Acetaminophen (Acetaminophen 325 Mg Tab) 650 mg PO Q4H PRN PRN Reason: Pain or Fever Stop: 11/23/22 18:32 Diltiazem HCl 125 mg/ Dextrose 125 mls @ 10 mls/hr IV .[id number] [facility]; Protocol Stop: 11/23/22 14:14 Last Admin: 10/25/22 13:22 Dose: Not Given Heparin Sodium/Dextrose (Heparin Sodium/Dextrose) 25,000 units in 500 mls @ 26 mls/hr IV .[id number] [facility]; Protocol Stop: 11/23/22 16:44 Last Admin: 10/25/22 14:59 Dose: Not Given Metoprolol Tartrate (Metoprolol Tartrate 25 Mg Tab) 25 mg PO Q6H [facility] Stop: 11/24/22 14:59 Last Admin: 10/25/22 15:22 Dose: 25 mg Paroxetine HCl (Paroxetine Hcl 20 Mg Tab) 20 mg PO DAILY [facility] Stop: 11/24/22 08:59 Last Admin: 10/25/22 09:28 Dose: 20 mg Polyethylene Glycol (Polyethylene (Miralax) 17 Gm Pack) 17 gm PO DAILY PRN PRN Reason: Constipation Stop: 11/23/22 18:32 PG Care Time/CCT Total # of Minutes Spent Total Time Spent with Patient: Total time spent is greater than 50% in coordination of care (as documented) at patient's floor/unit and/or counseling patient: Coding Level of Care Code 91655 INT INP/OBS CARE 3/75MIN Diagnoses Atrial fibrillation with rapid ventricular response I48.91 Cardiomyopathy I42.9 Elevated troponin I level R77.8 Chest pain R07.9 Abnormal nuclear stress test R94.39
--- NOTE | 2022-10-25 15:52 | Anesthesiology Consultation ---
Date of Service October 25, 2022 Assessment & Plan (1) Encounter for pre-operative examination: Chart Review Chart Review: Acceptable Risk for Surgery History Surgery Operation Date: 10/26/22 07:15 Proposed Procedures p Transesophageal Echo w/Anesthesia - Usama iRggs MD s Cardioversion Casting Agent w/Anesthesia - Usama Riggs MD Height/Weight Height: 6 ft 1 in Weight: 95.4 kg Allergies Allergy/AdvReac Type Severity Reaction Status Date / Time No Known Allergies Allergy Unverified 10/24/22 15:31 Medications Home Medications Medication Instructions Recorded Confirmed Last Taken ibuprofen 200 mg tablet 800 mg PO Q6H PRN fever/pain 05/12/21 10/24/22 10/22/22 paroxetine HCl 20 mg tablet 20 mg PO DAILY 05/12/21 10/24/22 10/24/22 09:00 Active Medications Generic Name Dose Route Start Last Admin Trade Name Freq PRN Reason Stop Dose Admin Diltiazem HCl 125 mg/ Dextrose 125 mls @ 10 mls/hr 10/24/22 14:15 10/25/22 13:22 IV 11/23/22 14:14 Not Given .[id number] MAUDE Protocol 10 MG/HR Heparin Sodium/Dextrose 25,000 units in 500 mls @ 26 mls/hr 10/24/22 16:45 10/25/22 14:59 Heparin Sodium/Dextrose IV 11/23/22 16:44 Not Given .[id number] MAUDE Protocol 1,300 UNITS/HR Metoprolol Tartrate 25 mg 10/25/22 15:00 10/25/22 15:22 Metoprolol Tartrate 25 Mg Tab PO 11/24/22 14:59 25 mg Q6H MAUDE Administration Paroxetine HCl 20 mg 10/25/22 09:00 10/25/22 09:28 Paroxetine Hcl 20 Mg Tab PO 11/24/22 08:59 20 mg DAILY MAUDE Administration Past Medical History Medical History (Updated 10/25/22 @ 15:52 by Tad Arnold MD) Atrial fibrillation with RVR Cardiomyopathy Depression History of cardiomyopathy EF 40-45% History of cardioversion History of head injury Prostate cancer Valvular heart disease Past Family History Family History Other Prostate cancer Past Surgical History Surgical History History of prostate biopsy Social History Smoking Status: Never smoker Hx Alcohol Use: Yes Alcohol type: wine alcohol intake frequency: holidays/special occasions only Hx Substance Use: No substance use type: does not use Physical Exam Vital Signs Last Vital Signs Temp 36.8 C 10/25/22 15:19 Pulse 125 H 10/25/22 15:19 Resp 18 10/25/22 15:19 BP 106/69 10/25/22 15:19 Pulse Ox 94 10/25/22 15:19 O2 Del Method 10/25/22 15:19 Testing Laboratory Results 10/25/22 05:30 10/24/22 14:03 PT 11.4 Seconds (9.0-12.0) 10/24/22 14:03 INR 1.1 (0.9-1.1) 10/24/22 14:03 APTT 77.1 Seconds (21.0-31.0) H* 10/25/22 12:53 Urine Color Yellow 10/24/22 19:40 Urine Appearance Clear (Clear) 10/24/22 19:40 Urine pH 5.0 (4.5-7.5) 10/24/22 19:40 Ur Specific [place] 1.029 (1.000-1.030) 10/24/22 19:40 Urine Protein Negative (Negative) 10/24/22 19:40 Urine Glucose (UA) Negative (Negative) 10/24/22 19:40 Urine Ketones Trace (Negative) H 10/24/22 19:40 Urine Nitrite Negative (Negative) 10/24/22 19:40 Ur Leukocyte Esterase Negative (Negative) 10/24/22 19:40 Urine WBC (Auto) 1-5 /hpf (0-5) 10/24/22 19:40 Urine RBC (Auto) 5-10 /hpf (0-4) H 10/24/22 19:40 U Hyaline Cast (Auto) 1-5 /lpf (0-5) 10/24/22 19:40 U Epithel Cells (Auto) 5-10 /lpf (0-5) H 10/24/22 19:40 Urine Bacteria (Auto) Negative (Negative) 10/24/22 19:40 Echocardiogram Date: 10/25/22 EF: 40-45% Valvular Disease: + MR (mild) PFO
[2022-10-25 20:50] LABS: Partial Thromboplastin Ratio 2.4
[2022-10-25 21:09] LABS: Partial Thromboplastin Time 66.4 Seconds (21.0-31.0)
[2022-10-25] MEDS ORDERED: NITROGLYCERIN SL 0.4 MG/TAB TAB SL STA (23:04)
[2022-10-26] MEDS: METOPROLOL TARTRATE 25 MG TAB PO SCH ×3 (02:13→16:15)
--- NOTE | 2022-10-26 05:49 | Electrocardiogram Report ---
Test Reason : Blood Pressure : / mmHG Vent. Rate : 143 BPM Atrial Rate : 101 BPM P-R Int : 000 ms QRS Dur : 092 ms QT Int : 296 ms P-R-T Axes : 000 014 068 degrees QTc Int : 456 ms Atrial fibrillation with rapid ventricular response with premature ventricular or aberrantly conducte d complexes Nonspecific ST abnormality Abnormal ECG When compared with ECG of 16-MAY-2021 07:51, Atrial fibrillation has replaced Sinus rhythm Vent. rate has increased BY 97 BPM Nonspecific T wave abnormality no longer evident in Inferior leads Confirmed by Usama Riggs ([id number]) on 10/26/2022 5:49:01 AM Referred By: Bereket Ren Confirmed By:Usama Riggs
[2022-10-26] MEDS: HEPARIN SODIUM/DEXTROSE 25,000 UNITS/500 ML BAG IV SCH (06:14)
[2022-10-26 06:25] LABS: Hematocrit (blood only) 41.5 % (40.1-51.0); Hemoglobin 14.4 g/dl (14.0-18.0); Mean Corpuscular Hgb Conc 34.7 g/dL (32.0-36.0); Mean Corpuscular Volume 89.4 fL (80.0-100.0); Mean Platelet Volume 10.2 fL (9.4-12.4); Platelet Count 175 K/uL (130-400); RDW Coefficient of Variation 12.5 % (11.5-14.5); RDW Standard Deviation 40.6 fL (36.4-46.3); Red Blood Count 4.64 M/uL (4.63-6.08); White Blood Count 8.95 K/ul (4.8-10.8)
[2022-10-26 06:51] LABS: Partial Thromboplastin Ratio 2.3
[2022-10-26 06:55] LABS: Partial Thromboplastin Time 63.2 Seconds (21.0-31.0)
[2022-10-26 07:37] LABS: BUN Creatinine Ratio 12.5 (10-20); Calcium 8.3 mg/dl (8.5-10.1); Creatinine Clr Calc Pharmacy 69.4 ml/min; Est GFR (African American) 73.1 ml/min; Est GFR (Non-African American) 63.1 ml/min; Potassium 4.4 mmol/L (3.5-5.1); Troponin I High Sensitivity 30.9 pg/ml (0-20)
[2022-10-26] MEDS: PARoxetine HCL 20 MG TAB PO SCH (07:43)
--- NOTE | 2022-10-26 10:43 | Electrocardiogram Report ---
Test Reason : Blood Pressure : / mmHG Vent. Rate : 129 BPM Atrial Rate : 170 BPM P-R Int : 000 ms QRS Dur : 090 ms QT Int : 332 ms P-R-T Axes : 000 061 060 degrees QTc Int : 486 ms Atrial fibrillation with rapid ventricular response Low voltage QRS Abnormal ECG When compared with ECG of 24-OCT-2022 13:55, Premature ventricular complexes are no longer Present Confirmed by Usama Riggs ([id number]) on 10/26/2022 10:42:50 AM Referred By: Bereket Ren Confirmed By:Usama Riggs
[2022-10-26] MEDS ORDERED: BENZOCAINE/TETRACAIN/BUTAM 50 APPLN/5 GM CAN EXT ONE (13:28)
--- NOTE | 2022-10-26 13:37 | Hospitalist Progress Note ---
Date of Service October 26, 2022 Assessment & Plan (1) Atrial fibrillation with rapid ventricular response: Plan: 67-year-old male with PMH atrial fibrillation in 2020 status post successful cardioversion, prostate cancer, depression presented to ER with complaint of palpitations x 2 days. In ER noted to be in atrial fibrillation rate 140s, BP stable Initial high sensitive troponin: 57. EKG: A. fib RVR, rate 143, nonspecific ST changes. TSH: 0.8 CXR: No acute process. In ER started on Cardizem bolus and drip with improvement of HR down to high 90s-118 Off cardizem drip due to pauses During my evaluation, he was still in Afib in RVR Continue po metoprolol tartarate to 25mg q6h Continue heparin drip Plan is for cardioversion by Cardiology today. NPO till then WIll follow up cardiology (2) History of cardiomyopathy: Plan: 05/13/2021 echo: EF: 35-40%, mild-moderate MR, mild AR, left and right atrium mildly dilated. 05/16/2021 TTE: Left atrium mildly dilated. No thrombus detected in left atrial appendage, patent foramen ovale. Mild MR (3) Prostate cancer: Plan: Had prostate biopsy on 10/22/[address] Burroughs. Patient was treated with prophylactic ciprofloxacin x 3 days. On admission, Pathology results was pending per outpatient chart review 10/23/2022 MRI prostate per outpatient chart review: Impression: No suspicious lesion in prostate gland. Diffuse patchy T2 hypointense signal throughout the peripheral zone, likely representing prostatitis. There is marked restricted diffusion associated with these areas of abnormal signal, suggesting the prostatitis may be acute. No focal lesions identified. Perirectal fat stranding with small amount of free fluid in the peritoneum and retroperitoneum, which likely represent changes from recent transrectal biopsy. No fluid collection or evidence of rectal wall thickening. Denies dysuria, pelvic pain, rectal pain, known fever. Hematuria reported earlier due to recent biopsy No leukocytosis UA not suggestive of UTI (4) Depression: Plan: Continue paroxetine DVT Prophylaxis On Heparin IV Full Code as per discussion with pt Follows with Dr eRn for routine care Admission and Anticipated Discharge Date Admission Date: October 24, 2022 Subjective Patient seen and examined Had chest pain overnight that resolved with iv lopressor No pain at this time Denied dizziness, palpitations Denied cough, shortness of breath Denied nausea, vomiting, abd pain, diarrhea Reported small hematuria today Denied dysuria or frequency Physical Exam Constitutional: + well hydrated; no acute distress Eyes: PERRL, conjunctivae normal, anicteric sclerae ENMT: external ear and nose normal, oropharynx normal Respiratory: normal respiratory effort, lungs clear to auscultation Cardiovascular: Rate/Rhythm: + tachycardic and + irregularly irregular S1 S2 Gastrointestinal (Abdomen): normal bowel sounds, soft, nontender, no hepatosplenomegaly Musculoskeletal: no cyanosis or clubbing, extremities motor strength 5/5 Neurologic: PERRL, EOMI, accommodation nl, no face palsy, no dysarthria Psychiatric: A+Ox3, euthymic affect Results & Data Results & Data ([facility]) Vital Signs (Past 12 Hours) Vital Signs Temp Pulse Resp BP Pulse Ox O2 Del Method 10/26/22 12:50 112 H 18 118/69 94 Room Air 10/26/22 10:58 36.6 C 75 18 106/68 95 Room Air 10/26/22 07:42 36.7 C 121 H 18 112/71 93 Room Air 10/26/22 02:12 36.7 C 127 H 16 102/73 92 Room Air Laboratory Results Abnormal lab results 10/25/22 10/25/22 10/26/22 Range/Units 20:09 23:22 05:39 APTT 66.4 H* (21.0-31.0) Seconds Chloride 109 H (98-107) mmol/L Calcium 8.3 L (8.5-10.1) mg/dl Troponin I High Sens 31.2 H D 30.9 H (0-20) pg/ml 10/26/22 Range/Units 05:39 APTT 63.2 H* (21.0-31.0) Seconds Chloride (98-107) mmol/L Calcium (8.5-10.1) mg/dl Troponin I High Sens (0-20) pg/ml
[2022-10-26] MEDS ORDERED: LIDOCAINE 2% MPF LOCAL 5 ML VIAL INFIL ONE (13:54)
[2022-10-26] MEDS ORDERED: PROPOFOL IV EMULSION 10 MG/ML 20 ML VIAL IV ONE (13:54)
--- NOTE | 2022-10-26 14:33 | Anesthesiology Progress Note ---
Date of Service October 26, 2022 Anesthesia Post Procedure Vital Signs Vital Signs: Temp Pulse Pulse Resp BP Pulse Ox Pulse Ox 10/26/22 14:30 54 L 18 98/60 L 96 10/26/22 14:20 56 L 17 85/58 L 95 10/26/22 14:15 123 H 17 93/64 L 95 10/26/22 14:25 53 L 17 78/52 L 95 10/26/22 14:20 123 H 17 87/56 L 95 10/26/22 14:10 130 H 18 77/50 L 94 10/26/22 14:05 130 H 18 101/58 L 94 10/26/22 12:50 112 H 18 118/69 94 10/26/22 10:58 97.9 F 75 18 106/68 95 10/26/22 07:42 98.1 F 121 H 18 112/71 93 10/26/22 02:12 98.1 F 127 H 16 102/73 92 10/25/22 23:25 98.6 F 125 H 18 109/79 92 10/25/22 22:52 98.1 F 82 18 116/74 93 10/25/22 19:57 95 10/25/22 19:00 98.8 F 90 17 121/71 95 10/25/22 15:19 98.2 F 125 H 18 106/69 94 O2 Del Method O2 Del Method O2 Flow Rate 10/26/22 14:30 Oxymask 5 10/26/22 14:20 Oxymask 8 10/26/22 14:15 Oxymask 8 10/26/22 14:25 Oxymask 8 10/26/22 14:20 Oxymask 8 10/26/22 14:10 Oxymask 10/26/22 14:05 Oxymask 10/26/22 12:50 Room Air 10/26/22 10:58 Room Air 10/26/22 07:42 Room Air 10/26/22 02:12 Room Air 10/25/22 23:25 Room Air 10/25/22 22:52 Room Air 10/25/22 19:57 Room Air 10/25/22 19:00 Room Air 10/25/22 15:19 Room Air Transfer of Care Handoff Completed per policy Notes Mental Status: alert / awake / arousable and participated in evaluation Patient Amnestic to Procedure: Yes Nausea / Vomiting: adequately controlled Pain: adequately controlled Airway Patency, RR, SpO2: stable & adequate BP & HR: stable & adequate Hydration State: stable & adequate Anesthetic Complications: no major complications apparent and Pt Satisfied with anesthetic care
[2022-10-26] MEDS ORDERED: PHENYLEPHRINE 100MCG/ML 5ML SYR ONE (14:34)
[2022-10-26] MEDS ORDERED: ePHEDrine sulfate 50 MG/ML AMP ONE (14:34)
--- NOTE | 2022-10-26 14:34 | Cardioversion ---
Date of Service October 26, 2022 PG Electrical Cardioversion Rp Electrical Cardioversion Report YG GUIDED ELECTRICAL CARDIOVERSION Indication: Symptomatic atrial fibrillation with RVR Procedure: - Anesthesia per Dr. Paige - YG revealed no left atrial appendage thrombus - Pads placed in AP position - Received single synchronized shock at 200J - Converted to sinus bradycardia - Patient tolerated procedure well without complications. Summary: 1. Successful YG Electrical cardioversion Recommendations: - Continue anticoagulation uninterrupted for at least 4 weeks. Coding Level of Care Code Cardioversion, elective Additional Codes Electrical Cardioversion Report ([id number])
--- NOTE | 2022-10-26 14:42 | Cardiology Progress Note ---
Date of Service October 26, 2022 Assessment & Plan (1) Atrial fibrillation with rapid ventricular response: Plan: 2. Cardiomyopathy--EF 40-45% global hypokinesis whie in AF 3. Mild MR 4. Mild AI 5. PFO 6. Post prostate biopsy Post successful cardioversion with return to sinus bradycardia. --Transition heparin to Eliquis or Xarelto --Start low dose toprol XL 25 mg daily From a cardiac standpoint Ok with discharge on oral anticoagulation when other medical issues stable. Follow-up with cardiology in 2-3 weeks. Admission and Anticipated Discharge Date Admission Date: October 24, 2022 Subjective Remained in atrial fibrillation with RVR overnight. Persistent shortness of breath with any exertion. No other new complaints. Underwent successful electrical cardioversion this afternoon with return to sinus bradycardia. Review of Systems Review of Systems: All systems reviewed & are unremarkable except as noted in HPI & below Physical Exam Physical Exam: Gen.: No acute distress. Alert and oriented. HEENT: Anicteric sclera. Cardiac: Irregularly irregular and tachycardic. Normal S1-S2. No murmurs, rubs, or gallops. Pulmonary: Clear to auscultation bilaterally without wheezes, rales, or rhonchi. Abdomen: Soft, nontender, nondistended, with normoactive bowel sounds. No bruits noted. Extremities: 2+ radial pulses bilaterally. Psychiatric: Affect appears appropriate. Results & Data ([facility]) Vital Signs (Past 12 Hours) Vital Signs Temp Pulse Pulse Resp BP Pulse Ox O2 Del Method 10/26/22 14:30 54 L 18 98/60 L 96 Oxymask 10/26/22 14:20 56 L 17 85/58 L 95 Oxymask 10/26/22 14:15 123 H 17 93/64 L 95 Oxymask 10/26/22 14:25 53 L 17 78/52 L 95 Oxymask 10/26/22 14:20 123 H 17 87/56 L 95 Oxymask 10/26/22 14:10 130 H 18 77/50 L 94 Oxymask 10/26/22 14:05 130 H 18 101/58 L 94 Oxymask 10/26/22 12:50 112 H 18 118/69 94 Room Air 10/26/22 10:58 97.9 F 75 18 106/68 95 Room Air 10/26/22 07:42 98.1 F 121 H 18 112/71 93 Room Air O2 Flow Rate 10/26/22 14:30 5 10/26/22 14:20 8 10/26/22 14:15 8 10/26/22 14:25 8 10/26/22 14:20 8 10/26/22 14:10 10/26/22 14:05 10/26/22 12:50 10/26/22 10:58 10/26/22 07:42 PG Care Time/CCT Total # of Minutes Spent Total Time Spent with Patient: Total time spent is greater than 50% in coordination of care (as documented) at patient's floor/unit and/or counseling patient: Coding Level of Care Code 50595 SUB INP/OBS CARE 3/50MIN Diagnoses Atrial fibrillation with rapid ventricular response I48.91
--- NOTE | 2022-10-26 15:41 | Electrocardiogram Report ---
Test Reason : Blood Pressure : / mmHG Vent. Rate : 114 BPM Atrial Rate : 066 BPM P-R Int : 000 ms QRS Dur : 092 ms QT Int : 324 ms P-R-T Axes : 000 052 038 degrees QTc Int : 446 ms Atrial fibrillation with rapid ventricular response Nonspecific ST abnormality Abnormal ECG When compared with ECG of 25-OCT-2022 06:28, No significant change was found Confirmed by Usama Riggs ([id number]) on 10/26/2022 3:41:21 PM Referred By: Bereket Ren Confirmed By:Usama Riggs
[2022-10-26] MEDS ORDERED: METOPROLOL SUCC 25MG EXT REL TAB PO ONE (16:30)
--- NOTE | 2022-10-26 16:33 | Electrocardiogram Report ---
Test Reason : Blood Pressure : / mmHG Vent. Rate : 058 BPM Atrial Rate : 058 BPM P-R Int : 128 ms QRS Dur : 100 ms QT Int : 432 ms P-R-T Axes : 000 038 009 degrees QTc Int : 424 ms Sinus bradycardia Nonspecific ST abnormality Abnormal ECG When compared with ECG of 25-OCT-2022 22:47, Sinus rhythm has replaced Atrial fibrillation Vent. rate has decreased BY 56 BPM Confirmed by Usama Riggs ([id number]) on 10/26/2022 4:33:18 PM Referred By: Bereket Ren Confirmed By:Usama Riggs
--- NOTE | 2022-10-26 23:04 | XCELERA ---
[id number] \\[id number]_[id number]}___[id number]
[2022-10-27] MEDS: HEPARIN SODIUM/DEXTROSE 25,000 UNITS/500 ML BAG IV SCH (01:16)
[2022-10-27 06:34] LABS: Partial Thromboplastin Ratio 2.1
[2022-10-27 06:39] LABS: Partial Thromboplastin Time 58.8 Seconds (21.0-31.0)
[2022-10-27 07:01] LABS: Appearance Urine Turbid (Clear); Bacteria Urine Automated Negative (Negative); Bilirubin Urine Negative (Negative); Blood Urine 3+ (Negative); Color Urine Orange; Epithelial Cell Urine Auto 0-5 /lpf (0-5); Glucose Urine UA Negative (Negative); Ketones Urine Trace (Negative); Leukocyte Esterase Urine Trace (Negative); Nitrite Urine Negative (Negative); Protein Urine Negative (Negative); RBC Urine Automated >30 /hpf (0-4); Specific Gravity Urine 1.028 (1.000-1.030); Urobilinogen Urine Negative (Negative); pH Urine 5.5 (4.5-7.5)
[2022-10-27] MEDS: PARoxetine HCL 20 MG TAB PO SCH (08:48)
[2022-10-27] MEDS ORDERED: METOPROLOL SUCC 25MG EXT REL TAB PO SCH (09:00)
--- NOTE | 2022-10-27 13:09 | Discharge Summary ---
Discharge Summary Date of Service October 27, 2022 Notes For Next Care Provider Needs to follow up with Cardiology outpatient Medication Changes From Visit Started on Metoprolol succinate and xarelto Admission HPI Per Admitting Provider Patient is 67-year-old male with PMH atrial fibrillation in 2020 status post successful cardioversion, prostate cancer, depression presented to ER with complaint of palpitations x 2 days. History obtained from patient and chart review. Patient with history initial diagnosis prostate cancer in 2019, was lost to follow-up. Had prostate biopsy on 10/22/[address] Burroughs. Patient was treated with prophylactic ciprofloxacin x 3 days. States following procedure he had generalized fatigue and had mild palpitations. Fatigue continued with increased palpitations. Yesterday patient with chest pressure and felt like chills. Did not take temperature. Denies further chills. Chest pressure continued today and patient presented to ER. Patient with prior episode A. fib RVR in and hospitalized and cardioverted. He was discharged on metoprolol and Xarelto. Patient states he stopped taking it shortly after his h e did not feel well however patient states he does not remember his exact symptoms. Denies any noted recurrent palpitations until 2 days ago. Denies diaphoresis, N/V/D/C, MARIE, dizziness, syncope, vision changes, neck pain, orthopnea, cough, sore throat, choking, otalgia, rhinorrhea, abdominal pain, paresthesias, weakness, extremity weakness, extremity edema, rashes, dysuria, pelvic pain, rectal pain. Prior hospitalization records reviewed: 05/13/2021 echo: EF: 35-40%, mild-moderate MR, mild AR, left and right atrium mildly dilated. 05/16/2021 TTE: Left atrium mildly dilated. No thrombus detected in left atrial appendage, patent foramen ovale. Mild MR. Admission Exam Per Admitting Provider General: no distress, WDWN Head: normocephalic, atraumatic Eyes: conjunctiva non-injected, anicteric ENT: normal inspection external ears, nose, mucous membranes moist Neck: supple, trachea midline Lungs: clear, no respiratory distress, no wheezing/rhonchi/rales CV: Irregularly irregular, rate 112, no JVD, no pretibial edema Abd: normal BS, soft, non-tender Ext: no cyanosis, no calf tenderness Neuro: A&O x 3, no focal deficits noted, normal affect Skin: warm, dry Principal Dx & Hospital Course #1 = Principal Diagnosis (1) Atrial fibrillation with rapid ventricular response: 67-year-old male with PMH atrial fibrillation in 2020 status post successful cardioversion, prostate cancer, depression presented to ER with complaint of palpitations x 2 days. In ER noted to be in atrial fibrillation rate 140s, BP stable Initial high sensitive troponin: 57. EKG: A. fib RVR, rate 143, nonspecific ST changes. TSH: 0.8 CXR: No acute process. In ER started on Cardizem bolus and drip with improvement of HR down to high 90s-118 Cardizem drip was stopped due to pauses He was started on metoprolol tartarate and heparin drip He was evaluated by Cardiology and successfully cardioverted on 10/26/22 Patient had intermittent mild hematuria with heparin drip. Likely related to recent prostate biopsy Hb was stable Patient was discharged on Xarelto. He stated he was on xarelto in the past for Afib but stopped on his own He was also discharged on Metoprolol succinate 25mg daily Advised to follow up with PCP and Cardiology (2) History of cardiomyopathy: 05/13/2021 echo: EF: 35-40%, mild-moderate MR, mild AR, left and right atrium mildly dilated. 05/16/2021 TTE: Left atrium mildly dilated. No thrombus detected in left atrial appendage, patent foramen ovale. Mild MR Echo this time noted EF 40-45%, global hypokinesis, mild dilated RV with mildly reduced systolic function, PFO, normal estimated RVSP EF though reduced, appear mildy improved from previous (3) Prostate cancer: Had prostate biopsy on 10/22/[address] Burroughs. Patient was treated with prophylactic ciprofloxacin x 3 days. On admission, Pathology results was pending per outpatient chart review 10/23/2022 MRI prostate per outpatient chart review: Impression: No suspicious lesion in prostate gland. Diffuse patchy T2 hy pointense signal throughout the peripheral zone, likely representing prostatitis. There is marked restricted diffusion associated with these areas of abnormal signal, suggesting the prostatitis may be acute. No focal lesions identified. Perirectal fat stranding with small amount of free fluid in the peritoneum and retroperitoneum, which likely represent changes from recent transrectal biopsy. No fluid collection or evidence of rectal wall thickening. Denies dysuria, pelvic pain, rectal pain, fever. Mild intermittent hematuria due to recent biopsy (4) Depression: Continue paroxetine Discharge Exam Constitutional + well hydrated; no acute distress Eyes PERRL, conjunctivae normal, anicteric sclerae ENMT external ear and nose normal, oropharynx normal Respiratory normal respiratory effort, lungs clear to auscultation Cardiovascular Rate/Rhythm: regular rate and regular rhythm S1 S2 Gastrointestinal (Abdomen) normal bowel sounds, soft, nontender, no hepatosplenomegaly Musculoskeletal no cyanosis or clubbing, extremities motor strength 5/5 Neurologic PERRL, EOMI, accommodation nl, no face palsy, no dysarthria Psychiatric A+Ox3, euthymic affect Updated Medication List Medication Instructions Recorded Confirmed Type paroxetine HCl 20 mg tablet 20 mg PO DAILY 05/12/21 10/24/22 History metoprolol succinate 25 mg 25 mg PO QAM #30 tabs 10/27/22 Rx tablet,extended release 24 hr rivaroxaban 20 mg tablet (Xarelto) 20 mg PO PM #30 tabs 10/27/22 Rx Hospital Stay Data Consultations 10/24/22 15:22 ED Decision to Admit Stat 10/25/22 09:20 Consult Cardiology Routine 10/25/22 15:27 Consult Anesthesiology Routine Consult Anesthesiology Routine Procedures Performed Operation Date: 10/26/22 07:15 Actual Procedures p Echo Transesophageal - Avni Lopez MD s Echo Color Flow - Avni Lopez MD s Cardioversion - Avni Lopez MD Pending Results Patient Have Any Pending Studies at Discharge: No Discharge Instructions Given to Patient (Per Discharging Provider) Mr Shamar Fountain came to the hospital with palpitation and was found to be in Afib with rapid heart rates. You had cardioversion successfully. Evaluation also showed mildly reduced heart function (ejection function) You were started on metoprolol succinate 25mg daily and blood thinner xarelto. Please stop taking ibuprofen or NSAIDS (like advil, motrin etc) while on blood thinner Please ensure you are compliant with your medications. Follow up with your Intervention Teacher and Primary Doctor. It was a pleasure taking care of you. Total Time Total Time Spent Total Time Spent (In Minutes): 45 Total Time Includes: Examination of the Patient, Discharge Planning and Medication Reconciliation
== END 2022-10-27 13:59 | disposition home or self-care (01) | DRG 309 ==
LOC: ED 13:38 → SUATTDRO 15:37 → 4W 15:37

== ENCOUNTER 2025-05-12 16:41 | Inpatient (IN) ==
[2025-05-12] MEDS: METOPROLOL TARTRATE 1 MG/ML VIAL IV STA ×2 (16:56→17:19)
[2025-05-12] MEDS: METOPROLOL TARTRATE 1 MG/ML VIAL IV ONE (16:59)
[2025-05-12] MEDS: MAGNESIUM SULFATE 1GM / D5W BAG IV STA (17:07)
[2025-05-12 17:09] LABS: Hematocrit (blood only) 46.1 % (42.0-52.0); Hemoglobin 16.1 g/dl (14.0-18.0); Immature Granulocytes # (auto) 0.05 K/uL (0.01-0.20); Immature Granulocytes % (auto) 0.5 %; Mean Corpuscular Hemoglobin 31.0 pg (25.0-34.0); Mean Corpuscular Volume 88.8 fL (80.0-100.0); Platelet Count 268 K/uL (130-400); RDW Standard Deviation 41.8 fL (36.4-46.3); Red Blood Count 5.19 M/uL (4.70-6.10); White Blood Count 9.49 K/ul (4.8-10.8)
[2025-05-12 17:27] LABS: Alanine Aminotransferase 20.0 U/L (7-52); Albumin Globulin Ratio 1.3 (0.9-2); Alkaline Phosphatase 53.0 U/L (34-104); Anion Gap 8.0 (3-11); Bilirubin,Total 1.0 mg/dl (0.2-1.0); Blood Urea Nitrogen 22.0 mg/dl (6-23); Calcium 9.4 mg/dl (8.6-10.3); Carbon Dioxide 22.0 mmol/L (21-32); Chloride 108.0 mmol/L (98-107); Creatinine Clr Calc Pharmacy 61.4 ml/min; Globulin 3.2 gm/dl (2.5-4.0); Glucose 100.0 mg/dl (70-99(Fasting)); Magnesium 2.3 mg/dl (1.7-2.4); Potassium 4.3 mmol/L (3.5-5.1); Sodium 138.0 mmol/L (136-145); Total Protein 7.2 gm/dl (6.0-8.3)
[2025-05-12 17:46] LABS: Thyroid Stimulating Hormone 1.318 uIu/ml (0.300-4.500)
--- NOTE | 2025-05-12 17:55 | Emergency Department Note ---
Impression & Plan Atrial fibrillation with rapid ventricular response, CORNEJO (dyspnea on exertion) ED Provider Note NAME: GISELE HODGES AGE: 69 SEX: M : 1955 ARRIVES VIA: Walk-In INFORMANT: Patient, ED PROVIDER(S): Pam Gregory MD CHIEF COMPLAINT: Palpitation HPI: This this is a 69-year-old presenting for palpitation. Patient has a history of atrial fibrillation twice in the past but he was on anticoagulation but is no longer on anticoagulation. He notes that he had a biopsy of his prostate about 2 days ago. This was also the trigger for his last episode of atrial fibrillation. He notes that he does not know exactly when the symptoms started but there was Saturday night, Saturday morning or today. He notes he feels somewhat short of breath and weak doing work. Otherwise no nausea, vomiting, fevers, chills. No significant pain anywhere. ROS: See above HPI for pertinent positives & negatives. A total of 10 systems reviewed and were otherwise negative. PAST MEDICAL HISTORY: See Below PAST SURGICAL HISTORY: See Below FAMILY HISTORY: See Below SOCIAL HISTORY: See Below HOME MEDICATIONS: See Below ALLERGIES: See Below VITALS: See Below PHYSICAL EXAMINATION: General: resting comfortably in no acute distress Head: Normocephalic and atraumatic Eyes: Normal inspection, extraocular muscles intact Ear, nose, throat: Normal external exam Neck: Normal range of motion Respiratory: lungs clear to auscultation bilaterally Cardiovascular: Irregularly irregular rate/rhythm, no murmur GI: soft, nontender, no guarding or rebound Extremities: nontender, moves all extremities Neuro: The patient awake and alert, appropriately conversive, no focal deficits, symmetric faces Skin: Warm, dry, and intact MEDICAL DECISION MAKING: This 69-year-old male presenting for palpitations. Patient is in A-fib with RVR. Rates in the 160s currently. Will do metoprolol as patient is on this at home. Will give 2 g mag. he is not anticoagulated at this time. - Bloodwork is reviewed showing no significant leukocytosis, anemia, electrolyte or creatinine abnormality. Negative troponin -Patient given 2 separate doses of metoprolol, 5 mg as well as 2 g magnesium without conversion to sinus rhythm. Rate still controlled with rates in the 130s. Patient is getting borderline hypotensive with rates in the 100 systolic. -Chest Xray independently interpreted by me showing no pneumothorax, focal opacity, or pleural effusions. -At this time we will require admission for further cardiac evaluation. Previously patient required cardioversion for sinus conversion/rate control. - Care discussed with inpatient team for admission. Differential diagnosis: A-fib with RVR, pneumonia, pneumothorax, ACS Independent History obtained from: Diagnostics interpreted by me: ECG: ECG independently interpreted by me with atrial fibrillation with RVR, rate of 138, normal QRS, normal QTc, no ST segment elevations consistent with STEMI criteria Cardiac Monitoring: An order was placed for continuous cardiac monitoring. The monitor shows a rate of 135 with atrial fibrillation rhythm. Critical Care Note: I have personally spent 34 minutes of critical care time in the direct management of this patient. This includes bedside care, interpretation of diagnostic studies, and testing, discussion with consultants, patient, and family members, and other required patient management activities. This 34 minutes is in excess of all separately billable procedures. Past Med/Surg History Problem List (Updated 05/12/25 @ 18:50 by Nadege Leija PA-C) Abnormal nuclear stress test Cardiomyopathy Encounter for pre-operative examination Depression Prostate cancer History of cardiomyopathy EF 40-45% Atrial fibrillation with rapid ventricular response (Acute) CORNEJO (dyspnea on exertion) (Acute) Elevated troponin I level (Acute) Chest pain (Acute) Medical History (Updated 05/12/25 @ 18:50 by Nadege Leija PA-C) PAF (paroxysmal atrial fibrillation) History of cardioversion Bradycardia Encounter for pre-operative examination Valvular heart disease Atrial fibrillation with RVR History of head injury Surgical History History of prostate biopsy Family History Other Prostate cancer Social History Smoking Status: Never smoker Do You Dip or Chew Tobacco: No; Hx Alcohol Use: Yes Alcohol type: wine Alcohol Intake Frequency: 4 or More x per/Week Hx Substance Use: No Preferred Language: [place] Citizen Communication Ability: Effective Hogshead Roller Required: No Beliefs That Will Affect Care: None Current Living Situation: Spouse Feels Safe at Home: Yes Assistive Devices: None Allergies Allergies Allergy/AdvReac Type Severity Reaction Status Date / Time No Known Allergies Allergy Unverified 05/12/25 18:02 Home Meds Home Medications Medication Instructions Recorded Confirmed paroxetine HCl 20 mg tablet 20 mg PO QAM 05/12/21 05/12/25 Previous Rx's Medication Instructions Recorded metoprolol succinate 25 mg 25 mg PO QAM #30 tabs 10/27/22 tablet,extended release 24 hr Results & Data (ED) Vital Signs Vital Signs - 24 hr 05/12/25 16:47 05/12/25 16:48 05/12/25 16:49 Temperature 36.6 C Temperature Source Oral Pulse Rate 155 H 149 H 137 H Pulse Rate from SpO2 Sensor Respiratory Rate 17 19 Blood Pressure 128/100 Blood Pressure Mean 109 Pulse Oximetry 95 Oxygen Delivery Method Room Air Sepsis New/Unexplained Change in Mental Status No Sepsis Action Taken by Nursing No Action Required 05/12/25 16:50 05/12/25 16:53 05/12/25 16:53 Temperature Temperature Source Pulse Rate Pulse Rate from SpO2 Sensor Respiratory Rate Blood Pressure 128/100 114/91 114/91 Blood Pressure Mean 104 95 95 Pulse Oximetry Oxygen Delivery Method Sepsis New/Unexplained Change in Mental Status Sepsis Action Taken by Nursing 05/12/25 16:53 05/12/25 16:56 05/12/25 16:57 Temperature Temperature Source Pulse Rate 132 H 136 H Pulse Rate from SpO2 Sensor 119 H Respiratory Rate 15 Blood Pressure 114/91 114/91 Blood Pressure Mean 95 Pulse Oximetry 95 Oxygen Delivery Method Sepsis New/Unexplained Change in Mental Status Sepsis Action Taken by Nursing 05/12/25 16:59 05/12/25 17:00 05/12/25 17:01 Temperature Temperature Source Pulse Rate 146 H 148 H Pulse Rate from SpO2 Sensor 87 Respiratory Rate 13 Blood Pressure 114/91 95/70 L Blood Pressure Mean 84 Pulse Oximetry 92 Oxygen Delivery Method Sepsis New/Unexplained Change in Mental Status Sepsis Action Taken by Nursing 05/12/25 17:01 05/12/25 17:06 05/12/25 17:11 Temperature Temperature Source Pulse Rate 134 H Pulse Rate from SpO2 Sensor 102 H Respiratory Rate 14 Blood Pressure 95/70 L 119/76 Blood Pressure Mean 84 85 Pulse Oximetry 95 Oxygen Delivery Method Sepsis New/Unexplained Change in Mental Status Sepsis Action Taken by Nursing 05/12/25 17:11 05/12/25 17:11 05/12/25 17:11 Temperature Temperature Source Pulse Rate Pulse Rate from SpO2 Sensor Respiratory Rate Blood Pressure 119/76 119/76 119/76 Blood Pressure Mean 85 85 85 Pulse Oximetry Oxygen Delivery Method Sepsis New/Unexplained Change in Mental Status Sepsis Action Taken by Nursing 05/12/25 17:11 05/12/25 17:12 05/12/25 17:18 Temperature Temperature Source Pulse Rate 143 H 151 H Pulse Rate from SpO2 Sensor 87 107 H Respiratory Rate 18 16 Blood Pressure 119/76 Blood Pressure Mean 85 Pulse Oximetry 95 96 Oxygen Delivery Method Sepsis New/Unexplained Change in Mental Status Sepsis Action Taken by Nursing 05/12/25 17:19 05/12/25 17:20 05/12/25 17:20 Temperature Temperature Source Pulse Rate 142 H Pulse Rate from SpO2 Sensor Respiratory Rate Blood Pressure 119/76 102/79 102/79 Blood Pressure Mean 84 84 Pulse Oximetry Oxygen Delivery Method Sepsis New/Unexplained Change in Mental Status Sepsis Action Taken by Nursing 05/12/25 17:26 05/12/25 17:26 05/12/25 17:30 Temperature Temperature Source Pulse Rate 135 H Pulse Rate from SpO2 Sensor Respiratory Rate Blood Pressure 105/72 105/72 118/84 Blood Pressure Mean 78 89 Pulse Oximetry Oxygen Delivery Method Sepsis New/Unexplained Change in Mental Status Sepsis Action Taken by Nursing 05/12/25 17:30 05/12/25 17:33 05/12/25 17:39 Temperature Temperature Source Pulse Rate 135 H 146 H Pulse Rate from SpO2 Sensor 87 103 H Respiratory Rate 12 14 Blood Pressure 118/84 Blood Pressure Mean 89 Pulse Oximetry 94 95 Oxygen Delivery Method Sepsis New/Unexplained Change in Mental Status Sepsis Action Taken by Nursing 05/12/25 17:41 05/12/25 17:41 05/12/25 17:41 Temperature Temperature Source Pulse Rate Pulse Rate from SpO2 Sensor Respiratory Rate Blood Pressure 103/77 103/77 103/77 Blood Pressure Mean 83 83 83 Pulse Oximetry Oxygen Delivery Method Sepsis New/Unexplained Change in Mental Status Sepsis Action Taken by Nursing 05/12/25 17:42 05/12/25 17:51 05/12/25 17:51 Temperature Temperature Source Pulse Rate 123 H 132 H Pulse Rate from SpO2 Sensor 96 H Respiratory Rate 14 12 Blood Pressure 118/81 Blood Pressure Mean 99 Pulse Oximetry 95 Oxygen Delivery Method Sepsis New/Unexplained Change in Mental Status Sepsis Action Taken by Nursing 05/12/25 18:00 05/12/25 18:01 05/12/25 18:14 Temperature Temperature Source Pulse Rate 119 H Pulse Rate from SpO2 Sensor 97 H Respiratory Rate 13 Blood Pressure 102/76 117/84 Blood Pressure Mean 88 96 Pulse Oximetry 95 Oxygen Delivery Method Sepsis New/Unexplained Change in Mental Status Sepsis Action Taken by Nursing Laboratory Data 05/12/25 16:55 05/12/25 16:55 Lab Results 05/12/25 Range/Units 16:55 WBC 9.49 (4.8-10.8) K/ul RBC 5.19 (4.70-6.10) M/uL Hgb 16.1 (14.0-18.0) g/dl Hct 46.1 (42.0-52.0) % MCV 88.8 (80.0-100.0) fL MCH 31.0 (25.0-34.0) pg MCHC 34.9 (32.0-36.0) g/dL RDW Std Deviation 41.8 (36.4-46.3) fL RDW Coeff of Rey 13.0 (11.5-14.5) % Plt Count 268 (130-400) K/uL MPV 9.7 (9.4-12.4) fL Immature Gran % (Auto) 0.5 % Neut % (Auto) 60.2 % Lymph % (Auto) 29.4 % Crenshaw % (Auto) 8.0 % Eos % (Auto) 1.6 % Baso % (Auto) 0.3 % Neut # (Auto) 5.71 (1.40-6.50) K/uL Lymph # (Auto) 2.79 (1.20-3.40) K/uL Crenshaw # (Auto) 0.76 H (0.11-0.59) K/uL Eos # (Auto) 0.15 (0.00-0.50) K/uL Baso # (Auto) 0.03 (0.00-0.20) K/uL Immature Gran # (Auto) 0.05 (0.01-0.20) K/uL PT 11.5 (9.0-12.0) Seconds INR 1.1 (0.9-1.1) APTT 27 (21-31) Seconds PTT Ratio 1.0 Sodium 138 (136-145) mmol/L Potassium 4.3 (3.5-5.1) mmol/L Chloride 108 H (98-107) mmol/L Carbon Dioxide 22 (21-32) mmol/L Anion Gap 8 (3-11) BUN 22 (6-23) mg/dl Creatinine 1.32 (0.6-1.4) mg/dl Est Cr Clr Drug Dosing 61.4 ml/min eGFR 59.12 BUN/Creatinine Ratio 16.7 (10-20) Glucose 100 H (70-99(Fasting)) mg/dl Calcium 9.4 (8.6-10.3) mg/dl Magnesium 2.3 (1.7-2.4) mg/dl Total Bilirubin 1.0 (0.2-1.0) mg/dl AST 22 (13-39) U/L ALT 20 (7-52) U/L Alkaline Phosphatase 53 (34-104) U/L Troponin I High Sens 4.6 (0-20) pg/ml Total Protein 7.2 (6.0-8.3) gm/dl Albumin 4.0 (3.4-5.0) gm/dl Globulin 3.2 (2.5-4.0) gm/dl Albumin/Globulin Ratio 1.3 (0.9-2) TSH 1.318 (0.300-4.500) uIu/ml Administered Medications Diltiazem HCl 125 mg/ Dextrose 125 mls @ 10 mls/hr IV .[id number] [facility]; Protocol Stop: 06/11/25 18:29 Last Titration: 05/12/25 19:28 Dose: 10 mg/hr, 10 mls/hr Documented By: ALEC Co-signed By: FRITZ Admin: 05/12/25 18:50 Dose: 5 mg/hr, 5 mls/hr Documented By: ALEC Co-signed By: RANDA Heparin Sodium/Dextrose (Heparin 22415 Unit/500 Ml D5w) 25,000 units in 500 mls @ 31 mls/hr IV .Q16H8M [facility]; Protocol Stop: 06/11/25 18:44 Last Admin: 05/12/25 18:54 Dose: 1,550 units/hr, 31 mls/hr Documented By: ALEC Co-signed By: RANDA Metoprolol Tartrate (Metoprolol Tartrate 25 Mg Tab) 25 mg PO Q6H [facility] Stop: 06/12/25 00:00 Last Admin: 05/12/25 23:52 Dose: 25 mg Documented By: CHRISSY Discontinued Medications Heparin Sodium/Dextrose (Heparin Iv Adult Wt-Based Standard *No* Initial Bolus Protocol) 1 each IV ONE STA; Protocol Stop: 05/12/25 18:19 Last Admin: 05/12/25 18:59 Dose: Not Given Documented By: ALEC Magnesium Sulfate/Dextrose (Magnesium Sulfate 1gm / D5w Bag) 2 gm IV NOW STA Stop: 05/12/25 16:54 Last Admin: 05/12/25 17:07 Dose: 2 gm Documented By: ARASH Metoprolol Tartrate (Metoprolol Tartrate 1 Mg/Ml Vial) Confirm Administered Dose 5 mg IV .STK-MED ONE Stop: 05/12/25 16:54 Last Admin: 05/12/25 16:59 Dose: Not Given Documented By: ARASH Metoprolol Tartrate (Metoprolol Tartrate 1 Mg/Ml Vial) 5 mg IV NOW STA Stop: 05/12/25 16:54 Last Admin: 05/12/25 16:56 Dose: 5 mg Documented By: ARASH Metoprolol Tartrate (Metoprolol Tartrate 1 Mg/Ml Vial) 5 mg IV NOW STA Stop: 05/12/25 17:16 Last Admin: 05/12/25 17:19 Dose: 5 mg Documented By: ARASH Metoprolol Tartrate (Metoprolol Tartrate 25 Mg Tab) 25 mg PO NOW STA Stop: 05/12/25 18:29 Last Admin: 05/12/25 18:52 Dose: 25 mg Documented By: ALEC Discharge Plan Visit Data Chief Complaint: Cardiac Assessment Stated Complaint: AFIB ED Provider: Pam Gregory Discharge Problem: Atrial fibrillation with rapid ventricular response, CORNEJO (dyspnea on exertion) Patient Disposition: Admitted As Inpatient Condition: Fair Discharge Instructions Interventions: ED Discharge Assessment Last Done: 05/12/25 21:03
[2025-05-12] MEDS ORDERED: STAT IV Infusion **Titration per Protocol STA (18:17)
--- NOTE | 2025-05-12 18:26 | History & Physical Report ---
Date of Service May 12, 2025 Assessment & Plan (1) Atrial fibrillation with rapid ventricular response: (2) PAF (paroxysmal atrial fibrillation): Plan: Patient is 69 year old male with PMH PAF, h/o cardioversion in 2020 & 2022, h/o nonischemic cardiomyopathy possibly tachycardia induced, EF improved to 55-59% on stress echo in 02/2023, prostate cancer, depression presented to ER with c/o exertional fatigue x 2 days, similar to prior Afib RVR symptoms. Denies palpitations, CP, dizziness, SOB In ER found be in a-fib RVR rates up to 150's. Was given 2 doses metoprolol tartrate IV, total 10mg. HR continues in 130's. BP: 105/72 Initial high sensitive troponin negative CXR pending Will start Cardizem drip Currently denies symptoms at rest Trend troponin Echo Heparin IV Hold home metoprolol succinate. Start metoprolol tartrate 25 mg Q6H p.o. NPO [place] Cardiology consult #History of cardiomyopathy: Stress echo 02/15/2023: EF: 55-59%, moderate concentric LVH, mild AR, trace mitral and tricuspid insufficiency Obtain resting echo (3) Prostate cancer: Plan: Had prostate biopsy on 05/10/[address] Burroughs. Patient reports had hematuria after procedure x2 days. Denies hematuria today. Denies dysuria, pelvic pain, rectal pain, known fever. No leukocytosis UA pending CBC in am (4) Depression: Plan: Continue paroxetine DVT Prophylaxis On IV heparin Admit PCU Full Code as per discussion with pt Follows with Dr Ren for routine care Pt was seen and care coordinated with Dr Sanchez. See addendum I spent a total of 60 minutes reviewing notes, outpatient records, labs, medication, coordinating, documenting and providing care for this patient excluding time spent in the performance of separately billed services and excluding time spent by another provider/QHP. History of Present Illness Chief Complaint: Fatigue Primary Care Provider: Breeket Ren MD Patient is 69 year old male with PMH PAF, h/o cardioversion in 2020 & 2022, h/o nonischemic cardiomyopathy possibly tachycardia induced, EF improved to 55-59% on stress echo in 02/2023, prostate cancer, depression presented to ER with c/o fatigue x 2 days. Had prostate biopsy 2 days ago and that evening started with fatigue with exertion. Denies noted palpitations, SOB, CP, orthopnea. He went to urgent care today and found to be in a-fib RVR and referred to ER. Patient with h/o recurrent PAF after prostate biopsy in past requiring cardioversion, last in 10/2022. He reports had hematuria after prostate biopsy but denied gross hematuria today. Denies fever/chills, diaphoresis, N/V/D/C, MARIE, dizziness, syncope, cough, sore throat, rhinorrhea, abdominal pain, paresthesias, weakness, extremity edema, rashes, dysuria. Allergies Allergy/AdvReac Type Severity Reaction Status Date / Time No Known Allergies Allergy Unverified 05/12/25 18:02 Home Medications Medication Instructions Recorded Confirmed Type paroxetine HCl 20 mg tablet 20 mg PO QAM 05/12/21 05/12/25 History metoprolol succinate 25 mg 25 mg PO QAM #30 tabs 10/27/22 05/12/25 Rx tablet,extended release 24 hr Past Med/Surg History Problem List (Updated 05/12/25 @ 18:50 by Nadege Leija PA-C) Abnormal nuclear stress test Cardiomyopathy Encounter for pre-operative examination Depression Prostate cancer History of cardiomyopathy EF 40-45% Atrial fibrillation with rapid ventricular response (Acute) CORNEJO (dyspnea on exertion) (Acute) Elevated troponin I level (Acute) Chest pain (Acute) Medical History (Updated 05/12/25 @ 18:50 by Nadege Leija PA-C) PAF (paroxysmal atrial fibrillation) History of cardioversion Bradycardia Encounter for pre-operative examination Valvular heart disease Atrial fibrillation with RVR History of head injury Surgical History History of prostate biopsy Family History Other Prostate cancer Social History Smoking Status: Never smoker Do You Dip or Chew Tobacco: No; Hx Alcohol Use: Yes Alcohol type: wine Alcohol Intake Frequency: 4 or More x per/Week Hx Substance Use: No Preferred Language: Amharic Communication Ability: Effective Farebox Repairer Required: No Beliefs That Will Affect Care: None Current Living Situation: Spouse Feels Safe at Home: Yes Assistive Devices: None Review of Systems Review of Systems: All systems reviewed & are unremarkable except as noted in HPI & below Physical Exam Physical Exam: General: no distress, WDWN Head: normocephalic, atraumatic Eyes: conjunctiva non-injected, anicteric ENT: normal inspection external ears, nose, mucous membranes moist Neck: supple, trachea midline Lungs: clear, no respiratory distress, no wheezing/rhonchi/rales CV: irregularly irregular, rate 130, no pretibial edema Abd: normal BS, soft, non-tender Ext: no cyanosis, no calf tenderness Neuro: A&O x 3, no focal deficits noted, normal affect Skin: warm, dry Results & Data Results & Data Vital Signs (Past 12 Hours) Vital Signs Temp Pulse Resp BP Pulse Ox O2 Del Method 05/12/25 17:26 105/72 05/12/25 17:26 135 H 105/72 05/12/25 17:20 102/79 05/12/25 17:20 102/79 05/12/25 17:19 142 H 119/76 05/12/25 17:18 151 H 16 96 05/12/25 17:12 143 H 18 95 05/12/25 17:11 119/76 05/12/25 17:11 119/76 05/12/25 17:11 119/76 05/12/25 17:11 119/76 05/12/25 17:11 119/76 05/12/25 17:06 134 H 14 95 05/12/25 17:01 95/70 L 05/12/25 17:01 95/70 L 05/12/25 17:00 148 H 13 92 05/12/25 16:59 146 H 114/91 05/12/25 16:57 136 H 15 95 05/12/25 16:56 132 H 114/91 05/12/25 16:53 114/91 05/12/25 16:53 114/91 05/12/25 16:53 114/91 05/12/25 16:50 128/100 05/12/25 16:49 137 H 05/12/25 16:48 149 H 19 05/12/25 16:47 36.6 C 155 H 17 128/100 95 Room Air Laboratory Results Short CBC 05/12/25 Range/Units 16:55 WBC 9.49 (4.8-10.8) K/ul Hgb 16.1 (14.0-18.0) g/dl Hct 46.1 (42.0-52.0) % Plt Count 268 (130-400) K/uL BMP 05/12/25 16:55 Sodium 138 Potassium 4.3 Chloride 108 H Carbon Dioxide 22 BUN 22 Creatinine 1.32 Glucose 100 H Calcium 9.4 Liver Function 05/12/25 Range/Units 16:55 Total Bilirubin 1.0 (0.2-1.0) mg/dl AST 22 (13-39) U/L ALT 20 (7-52) U/L Alkaline Phosphatase 53 (34-104) U/L Albumin 4.0 (3.4-5.0) gm/dl Code Status & VTE Plan VTE Prophylaxis Plan VTE Prophylaxis will be ordered: Yes Supervising Physician Co-Signing Physician Notes I have seen and discussed the case with the collaborating advanced practitioner. I agree with the above H&P. I have reviewed and confirmed the patients medical history, the findings on physical examination, and the patients diagnosis and treatment plan with Heladio RAMIREZ and agree with the information documented. In short, Mr. Ibanez is a 69 yo gentleman with history of PAF and prostate cancer s/p biopsy on 05/10 admitted for a fib RVR. Patient with similar episode 2022. States that he had his biopsy, felt tired thereafter, and didn't improve. Denies fevers, chills, cough, or flu like symptoms Reports hematuria s/p biopsy resolved EXAM notedable for irregularly irregular rhythm with rates in 140s on exam #A fib RVR UA ordered, no leukocytosis, low suspicion for infection tsh wnl start diltazem start po metoprolol 25mg q 6 hrs start heparin npo midnight for possible cardioversion ECHO Cardiology consult rest of plan as above I spent a total of 20 minutes coordinating, documenting, and providing care for this patient excluding time spent in the performance of separately billed services. All of the aforementioned completed outside of collaborating with the assigned advanced practitioner for a full treatment plan. I have reviewed the advanced practitioner's documentation, and I agree with, and take responsibility for the plan of care
[2025-05-12] MEDS: METOPROLOL TARTRATE 25 MG TAB PO STA (18:52)
[2025-05-12] MEDS: HEPARIN 25000 UNIT/500 ML D5W 25,000 UNITS/500 ML BAG IV SCH (18:54)
[2025-05-12] MEDS: Heparin IV Adult Wt-Based Standard *NO* INITIAL Bolus Protocol IV STA (18:59)
--- NOTE | 2025-05-12 19:06 | XRay Report ---
EXAM: Portable AP chest radiograph TECHNIQUE: AP portable radiograph of the chest was obtained. INDICATION: Chest pain Comparison: None FINDINGS: LINES and TUBES: None CARDIOVASCULAR: Cardiac silhouette is mildly enlarged in size. LUNGS/PLEURA: No focal consolidation identified. No significant pleural fluid. No discernible pneumothorax. OSSEOUS/OTHER: No displaced acute osseous process identified. IMPRESSION: Mildly enlarged cardiac silhouette. Otherwise no radiographic evidence of acute cardiopulmonary process. Electronically signed by Shahab Panchal 05-12-2025 7:03 PM
[2025-05-12 19:18] LABS: INR 1.1 (0.9-1.1); Partial Thromboplastin Time 27 Seconds (21-31); Prothrombin Time 11.5 Seconds (9.0-12.0)
[2025-05-12] MEDS ORDERED: POLYETHYLENE (MIRALAX) 17 GM PACK PO PRN (21:18)
[2025-05-12] MEDS ORDERED: ACETAMINOPHEN 325 MG TAB PO PRN (21:18)
[2025-05-12] MEDS ORDERED: ONDANSETRON INJ 2 MG/ML 2 ML VIAL IV PRN (21:18)
[2025-05-12 21:23] LABS: Appearance Urine Clear (Clear); Bacteria Urine Automated None Seen (None Seen); Cast Urine Automated 0-2 /lpf (0-2); Epithelial Cell Urine Auto 0-2 /hpf (0-2); Glucose Urine UA Negative (Negative); WBC Urine Automated 0-5 /hpf (0-5)
[2025-05-12] MEDS: METOPROLOL TARTRATE 25 MG TAB PO SCH (23:52)
[2025-05-13 01:59] LABS: ANTI-Xa, UFH(UnfractionatedHep 0.61 IU/ml (0.3-0.7)
[2025-05-13 06:07] LABS: Hematocrit (blood only) 40.7 % (42.0-52.0); Hemoglobin 14.1 g/dl (14.0-18.0); Mean Corpuscular Hemoglobin 31.5 pg (25.0-34.0); Mean Corpuscular Volume 90.8 fL (80.0-100.0); Platelet Count 213 K/uL (130-400); RDW Standard Deviation 42.0 fL (36.4-46.3); Red Blood Count 4.48 M/uL (4.70-6.10); White Blood Count 9.05 K/ul (4.8-10.8)
[2025-05-13 06:31] LABS: Anion Gap 7.0 (3-11); Blood Urea Nitrogen 18.0 mg/dl (6-23); Calcium 8.6 mg/dl (8.6-10.3); Carbon Dioxide 25.0 mmol/L (21-32); Chloride 106.0 mmol/L (98-107); Creatinine Clr Calc Pharmacy 70.4 ml/min; Glucose 106.0 mg/dl (70-99(Fasting)); Magnesium 2.4 mg/dl (1.7-2.4); Potassium 4.2 mmol/L (3.5-5.1); Sodium 138.0 mmol/L (136-145)
[2025-05-13 07:57] VITALS: TEMP 97.7
--- NOTE | 2025-05-13 09:20 | Cardiology Consultation ---
Date of Consultation May 13, 2025 Assessment & Plan (1) Atrial fibrillation with rapid ventricular response: Patient with atrial fibrillation, perhaps 3 days in duration. Similar circumstances to his previous cardioversion in 2022 having occurred after prostate biopsy. Discontinue heparin, transition to Eliquis.Resume prior to hospital dosing of metoprolol succinate 25 mg daily. [id number]-VUVc score is 1 for his age of over 65, but does have mild LV systolic dysfunction. Patient agreeable to anticoagulation for at least 1 month post cardioversion, although my preference would be that the patient would likely be better protected against stroke from long-term anticoagulation given potential for brief asymptomatic episodes of atrial fibrillation that may go clinically undetected but still would increase his risk. Proceed with transesophageal echocardiogram guided direct-current cardioversion. Patient agreeable. I spent a total of 60 minutes on the date of service in preparation, delivery, and documentation of the care provided to this patient, excluding any time spent in the performance of separately billed services. Kaleb Du DO History of Present Illness Attending Physician: Vinayak Barajas MD History of Present Illness Yosef Ibanez is a 59-year-old male seen in cardiology consultation per the request of Nadege Leija PA-C [facility] for the evaluation of atrial fibrillation.The patient has a history of paroxysmal atrial fibrillation and underwent previous direct-current cardioversion procedures in 2020 and in 2022. He had previously followed with [facility] [place] but transitioned our practice in 2022. The patient has a history of prostate cancer first diagnosed in 2017. His prostate-specific antigen levels had been elevated and he therefore underwent repeat prostate biopsy performed by Dr. Norbert Burroughs of [facility] urology on 05/10/2025. The pathology results are currently pending. The evening of the biopsy he started experiencing symptoms of fatigue with exertion without subjective palpitations. He presented to [facility] and EKG performed on 05/12/2025 at 1609 (reviewed/interpreted dependently) revealed atrial fibrillation with rapid ventricular spots, 148 bpm, nonspecific repolarization abnormalities were observed. The patient was referred to the emergency department where atrial fibrillation was noted to persist. In addition to his prior to hospital treated with metoprolol, he was placed on a diltiazem infusion and on a heparin infusion. He notes feeling better at rest. He remains in atrial fibrillation, on diltiazem 5 mg IV per hour. Currently ventricular rate is in the 90s, and has been as low as 60s. He is not on anticoagulation on a chronic basis due to the patient's preference. He notes no hematuria since the recent prostate biopsy. Past Medical History: 1.Paroxysmal atrial fibrillation status post DCCV 05/2021 a.Reoccurrence of PAF following prostate biopsy, 10/26/2022 status post YG guided cardioversion b.[id number] score of 1 (age) 2.Mild nonischemic cardiomyopathy, possibly tachycardic induced, LVEF 40-45%, 10/2022 a.LVEF improved to normal per exercise stress echo 02/2023 3.Moderate concentric LVH 4.Prostate cancer, dx 2017 Allergies Allergy/AdvReac Type Severity Reaction Status Date / Time No Known Allergies Allergy Unverified 05/12/25 18:02 Home Medications Medication Instructions Recorded Confirmed Type paroxetine HCl 20 mg tablet 20 mg PO QAM 05/12/21 05/12/25 History metoprolol succinate 25 mg 25 mg PO QAM #30 tabs 10/27/22 05/12/25 Rx tablet,extended release 24 hr Patient History Medical History PAF (paroxysmal atrial fibrillation) History of cardioversion Bradycardia Encounter for pre-operative examination Valvular heart disease Atrial fibrillation with RVR History of head injury Surgical History History of prostate biopsy Family History Other Prostate cancer Social History Smoking Status: Never smoker Do You Dip or Chew Tobacco: No; Hx Alcohol Use: Yes Alcohol type: wine Alcohol Intake Frequency: 4 or More x per/Week Hx Substance Use: No Preferred Language: Hungarian Communication Ability: Effective Cardiology Nurse Required: No Beliefs That Will Affect Care: None Current Living Situation: Spouse Feels Safe at Home: Yes Assistive Devices: None Review of Systems Review of Systems: All systems reviewed & are unremarkable except as noted in HPI & below Physical Exam Physical Exam: General: no acute distress and stated age Eyes: conjunctiva are pink and non-injected, sclera clear Neck: normal jugular venous pulse, no hepatojugular reflux Chest: normal shape and normal respiratory effort Lungs: clear to auscultation and percussion Cardiac Exam: - Irregular rhythm, no murmurs Abdomen: abdomen soft, non-tender, no abnormal masses and no hepatosplenomegaly Musculoskeletal: no gait disturbance, no weakness Extremities: no edema and no cyanosis Neuro:awake, conversant, follows commands, no focal motor deficits Psych: appropriate affect and insight. Results & Data Vital Signs (Past 12 Hours) Vital Signs Temp Pulse Pulse Resp BP BP Pulse Ox 05/13/25 07:57 36.5 C 72 18 97/70 L 93 05/13/25 05:45 81 16 96/66 L 92 05/13/25 03:01 36.7 C 76 16 94/64 L 95 05/12/25 23:50 84 16 104/67 95 05/12/25 22:41 36.6 C 79 16 95/77 L 96 05/12/25 22:00 101 H 05/12/25 21:18 05/12/25 21:18 36.6 C 107 H 16 111/71 95 05/12/25 21:18 05/12/25 21:15 36.6 C 107 H 16 111/71 95 Pulse Ox O2 Del Method O2 Del Method 05/13/25 07:57 Room Air 05/13/25 05:45 Room Air 05/13/25 03:01 Room Air 05/12/25 23:50 Room Air 05/12/25 22:41 Room Air 05/12/25 22:00 05/12/25 21:18 Room Air 05/12/25 21:18 Room Air 05/12/25 21:18 95 Room Air 05/12/25 21:15 Room Air Laboratory Results Cardiac Enzymes 05/12/25 Range/Units 16:55 AST 22 (13-39) U/L Troponin I High Sens 4.6 (0-20) pg/ml Coagulation 05/12/25 Range/Units 16:55 PT 11.5 (9.0-12.0) Seconds APTT 27 (21-31) Seconds CBC 05/12/25 05/13/25 Range/Units 16:55 05:18 WBC 9.49 9.05 (4.8-10.8) K/ul RBC 5.19 4.48 L (4.70-6.10) M/uL Hgb 16.1 14.1 (14.0-18.0) g/dl Hct 46.1 40.7 L (42.0-52.0) % Plt Count 268 213 (130-400) K/uL Neut # (Auto) 5.71 (1.40-6.50) K/uL Lymph # (Auto) 2.79 (1.20-3.40) K/uL [place] # (Auto) 0.76 H (0.11-0.59) K/uL Eos # (Auto) 0.15 (0.00-0.50) K/uL Baso # (Auto) 0.03 (0.00-0.20) K/uL Comprehensive Metabolic Panel 05/12/25 05/13/25 Range/Units 16:55 05:18 Sodium 138 138 (136-145) mmol/L Potassium 4.3 4.2 (3.5-5.1) mmol/L Chloride 108 H 106 (98-107) mmol/L Carbon Dioxide 22 25 (21-32) mmol/L BUN 22 18 (6-23) mg/dl Creatinine 1.32 1.15 (0.6-1.4) mg/dl Glucose 100 H 106 H (70-99(Fasting)) mg/dl Calcium 9.4 8.6 (8.6-10.3) mg/dl AST 22 (13-39) U/L ALT 20 (7-52) U/L Alkaline Phosphatase 53 (34-104) U/L Total Protein 7.2 (6.0-8.3) gm/dl Albumin 4.0 (3.4-5.0) gm/dl Intake and Output 05/12/25 05/13/25 05/13/25 22:59 06:59 14:59 Intake Total 3.167 / 370.167 367.0 / 370.167 144.784 / 144.784 Balance 3.167 / 370.167 367.0 / 370.167 144.784 / 144.784 Intake: IV 3.167 / 370.167 367.0 / 370.167 144.784 / 144.784 Heparin 30906 Unit/500 ml D5w 263.5 / 263.5 112.117 / 112.117 25,000 units In 500 ml @ 1,550 UNITS/HR 31 mls/hr IV .[id number] MAUDE Rx#:[id number] dilTIAZem HCL 125 mg In 3.167 / 106.667 103.5 / 106.667 32.667 / 32.667 Dextrose 5% 100 ml @ 10 MG/HR 10 mls/hr IV .[id number] MAUDE Rx#: [id number] Other: # Unmeasured Voids 1 1 Weight 91.9 kg 91.9 kg Weight Measurement Method [facility] Findings EKG as noted above. Summary of transthoracic echocardiogram performed this morning 05/13/2025: Rate controlled atrial fibrillation was present during echocardiogram study. There is borderline concentric left ventricular hypertrophy. Left ventricular systolic function is mildly reduced. Left Ventricular Ejection Fraction = 40-45%. There is mild global hypokinesis of the left ventricle. The left atrium is moderately dilated. A small PFO is present by color-flow Doppler. Mild aortic regurgitation. There is mild mitral regurgitation. There is mild tricuspid regurgitation. Doppler findings do not suggest pulmonary hypertension. Coding Level of Care Code 46829 IN/OBS CONSULT LVL 4,60M Diagnoses Atrial fibrillation with rapid ventricular response I48.91
[2025-05-13] MEDS: APIXABAN 5 MG TABLET PO ONE (11:22)
--- NOTE | 2025-05-13 11:41 | Electrocardiogram Report ---
Test Reason : Blood Pressure : */* mmHG Vent. Rate : 138 BPM Atrial Rate : * BPM P-R Int : * ms QRS Dur : 84 ms QT Int : 294 ms P-R-T Axes : * -8 -16 degrees QTcB Int : 445 ms Atrial fibrillation with rapid ventricular response Low voltage QRS Cannot rule out Inferior infarct , age undetermined Abnormal ECG When compared with ECG of 26-Oct-2022 14:27, Atrial fibrillation has replaced Sinus rhythm Vent. rate has increased by 80 bpm Nonspecific T wave abnormality, worse in Inferior leads Confirmed by Junior Richardson ([id number]) on 05/13/2025 11:40:58 AM Referred By: REFERRED SELF Confirmed By: Junior Richardson
--- NOTE | 2025-05-13 11:50 | Electrocardiogram Report ---
Test Reason : Blood Pressure : */* mmHG Vent. Rate : 76 BPM Atrial Rate : * BPM P-R Int : * ms QRS Dur : 96 ms QT Int : 400 ms P-R-T Axes : * 54 53 degrees QTcB Int : 450 ms Atrial fibrillation Low voltage QRS Nonspecific ST abnormality Abnormal ECG When compared with ECG of 12-May-2025 16:48, (unconfirmed) Vent. rate has decreased by 62 bpm Minimal criteria for Inferior infarct are no longer Present Nonspecific T wave abnormality no longer evident in Inferior leads Confirmed by Junior Richardson ([id number]) on 05/13/2025 11:50:17 AM Referred By: REFERRED SELF Confirmed By: Junior Richardson
[2025-05-13] MEDS ORDERED: BENZOCAINE/TETRACAIN/BUTAM 50 APPLN/5 GM CAN EXT ONE (12:31)
[2025-05-13] MEDS ORDERED: PROPOFOL IV EMULSION 10 MG/ML 20 ML VIAL IV ONE ×2 (12:58)
--- NOTE | 2025-05-13 13:29 | Anesthesiology Consultation ---
Date of Service May 13, 2025 Assessment & Plan Chart Review Chart Review: Acceptable Risk for Surgery and Patient NOT seen in Pre Admission Testing Consults Requested none ASA ASA2 Proposed Anesthesia Anesthesia Type: MAC Risk / Benefits Reviewed With: PT / POA / Parent / Guardian, Accepts Plan and Informed Consent Obtained History Surgery Operation Date: 05/13/25 13:00 Proposed Procedures p Transesophageal Echo w/Anesthesia - David Du DO Height/Weight Height: 6 ft 1 in Weight: 91.9 kg Allergies Allergy/AdvReac Type Severity Reaction Status Date / Time No Known Allergies Allergy Unverified 05/12/25 18:02 Medications Home Medications Medication Instructions Recorded Confirmed Last Taken paroxetine HCl 20 mg tablet 20 mg PO QAM 05/12/21 05/12/25 05/11/25 metoprolol succinate 25 mg 25 mg PO QAM #30 tabs 10/27/22 05/12/25 05/11/25 tablet,extended release 24 hr Active Medications Generic Name Dose Route Start Last Admin Trade Name Freq PRN Reason Stop Dose Admin Diltiazem HCl 125 mg/ Dextrose 125 mls @ 5 mls/hr 05/12/25 18:30 05/13/25 09:05 IV 06/11/25 18:29 5 mg/hr .Q24H MAUDE 5 mls/hr Titration Protocol 5 MG/HR Paroxetine HCl 20 mg 05/13/25 09:00 05/13/25 08:39 Paroxetine Hcl 20 Mg Tab PO 06/12/25 08:59 20 mg QAM MAUDE Administration Past Medical History Medical History PAF (paroxysmal atrial fibrillation) History of cardioversion Bradycardia Encounter for pre-operative examination Valvular heart disease Atrial fibrillation with RVR History of head injury Exercise / Class Metabolic Activity II 4-5 Yardwork/Stairs/Walk up hill Past Family History Family History Other Prostate cancer Past Surgical History Surgical History History of prostate biopsy Past Anesthesia History No Hx of Anesthesia Complications and No Family Hx of Anesthesia Complications History of PONV No Hx of PONV and No Hx of Motion Sickness Social History Smoking Status: Never smoker Do You Dip or Chew Tobacco: No Hx Alcohol Use: Yes Alcohol type: wine alcohol intake frequency: a few times a week Hx Substance Use: No substance use type: does not use Physical Exam Vital Signs Last Vital Signs Temp 36.5 C 05/13/25 11:26 Pulse 62 05/13/25 11:26 Resp 21 05/13/25 11:26 BP 103/75 05/13/25 11:26 Pulse Ox 95 05/13/25 11:26 O2 Del Method Room Air 05/13/25 11:26 ENMT Mouth: no dentition abnormality Thyromental Distance: > or= 3.5 Finger Breadths Mallampati Class: II Neck normal visual inspection Respiratory normal respiratory effort Auscultation: lungs clear to auscultation bilaterally Cardiovascular Rate/Rhythm: regular rhythm; + abnormal rate Psychiatric Orientation: alert Testing Laboratory Results 05/13/25 05:18 05/13/25 05:18 PT 11.5 Seconds (9.0-12.0) 05/12/25 16:55 INR 1.1 (0.9-1.1) 05/12/25 16:55 APTT 27 Seconds (21-31) 05/12/25 16:55 Urine Color Yellow 05/12/25 20:55 Urine Appearance Clear (Clear) 05/12/25 20:55 Urine pH 5.0 (4.5-7.5) 05/12/25 20:55 Ur Specific [place] 1.018 (1.000-1.030) 05/12/25 20:55 Urine Protein Negative (Negative) 05/12/25 20:55 Urine Glucose (UA) Negative (Negative) 05/12/25 20:55 Urine Ketones Trace (Negative) H 05/12/25 20:55 Urine Nitrite Negative (Negative) 05/12/25 20:55 Ur Leukocyte Esterase Negative (Negative) 05/12/25 20:55 Urine WBC (Auto) 0-5 /hpf (0-5) 05/12/25 20:55 Urine RBC (Auto) 6-10 /hpf (0-2) H 05/12/25 20:55 U Hyaline Cast (Auto) 0-2 /lpf (0-2) 05/12/25 20:55 U Epithel Cells (Auto) 0-2 /hpf (0-2) 05/12/25 20:55 Urine Bacteria (Auto) None Seen (None Seen) 05/12/25 20:55
[2025-05-13] MEDS ORDERED: SODIUM CHLORIDE 0.9% 250 ML IV ONE (13:55)
[2025-05-13] MEDS ORDERED: SODIUM CHLORIDE 0.9% 500 ML IV ONE (14:00)
--- NOTE | 2025-05-13 14:01 | Cardioversion ---
Date of Service May 13, 2025 PG Electrical Cardioversion Rp Electrical Cardioversion Report Preprocedure diagnosis: Rule out left atrial appendage thrombus, symptomatic atrial fibrillation Postprocedure diagnosis: No left atrial or left atrial appendage thrombus, successful conversion to sinus rhythm Procedure Transesophageal echocardiogram guided direct-current cardioversion procedure: The patient's vital signs were monitored via the standard fashion. After informed consent was obtained a timeout was performed the patient was sedated with the assistance of the anesthesia service receiving a total of 40 mg of IV lidocaine and 270 mg of IV propofol. The patient underwent a focused transesophageal echocardiogram with no evidence of left atrial or left atrial appendage thrombus. A small PFO with moderate interatrial shunt was observed. The patient then underwent direct-current cardioversion receive a single dose of biphasic energy, 200 J, with successful conversion to sinus rhythm. Postprocedure, transient hypotension with systolic blood pressure in the 70s observed. The patient received 500 mL of normal saline with improvement in the blood pressure and he was transferred back to the PACU in stable condition. He was mentating well without any focal neurologic deficits. Sonar Technician David Du DO Senior Java Programmer Analyst Rosa [place], [facility] Findings As noted above Anesthesia Type MAC Complications No complications were immediately apparent [place] [address] CARDIOVERSION, ELECTIVE Patient Type Established History Comprehensive Exam Comprehensive Medical Decision Making Moderate Complexity Additional Codes Electrical Cardioversion Report ([id number]) Time Spent (min) 45
--- NOTE | 2025-05-13 14:04 | Anesthesiology Progress Note ---
Date of Service May 13, 2025 Anesthesia Post Procedure Vital Signs Vital Signs: Temp Pulse Pulse Resp BP BP BP 05/13/25 13:46 51 L 16 91/70 L 05/13/25 13:36 48 L 16 96/51 L 05/13/25 11:26 36.5 C 62 21 103/75 05/13/25 07:57 36.5 C 72 18 97/70 L 05/13/25 05:45 81 16 96/66 L 05/13/25 03:01 36.7 C 76 16 94/64 L 05/12/25 23:50 84 16 104/67 05/12/25 22:41 36.6 C 79 16 95/77 L 05/12/25 22:00 101 H 05/12/25 21:18 05/12/25 21:18 36.6 C 107 H 16 111/71 05/12/25 21:18 05/12/25 21:15 36.6 C 107 H 16 111/71 05/12/25 21:02 36.7 C 108 H 19 116/80 05/12/25 20:00 109 H 18 99/72 L 05/12/25 19:16 119 H 18 117/77 05/12/25 19:01 103/70 05/12/25 19:01 103/70 05/12/25 19:01 126 H 13 103/70 05/12/25 19:00 126 H 12 103/70 05/12/25 19:00 05/12/25 18:50 138 H 118/80 05/12/25 18:46 118/80 05/12/25 18:46 118/80 05/12/25 18:46 118/80 05/12/25 18:45 128 H 14 05/12/25 18:42 150 H 16 05/12/25 18:34 118/92 05/12/25 18:14 117/84 05/12/25 18:01 102/76 05/12/25 18:00 119 H 13 05/12/25 17:51 118/81 05/12/25 17:51 132 H 12 05/12/25 17:42 123 H 14 05/12/25 17:41 103/77 05/12/25 17:41 103/77 05/12/25 17:41 103/77 05/12/25 17:39 146 H 14 05/12/25 17:33 135 H 12 05/12/25 17:30 118/84 05/12/25 17:30 118/84 05/12/25 17:26 105/72 05/12/25 17:26 135 H 105/72 05/12/25 17:20 102/79 05/12/25 17:20 102/79 05/12/25 17:19 142 H 119/76 05/12/25 17:18 151 H 16 05/12/25 17:12 143 H 18 05/12/25 17:11 119/76 05/12/25 17:11 119/76 05/12/25 17:11 119/76 05/12/25 17:11 119/76 05/12/25 17:11 119/76 05/12/25 17:06 134 H 14 05/12/25 17:01 95/70 L 05/12/25 17:01 95/70 L 05/12/25 17:00 148 H 13 05/12/25 16:59 146 H 114/91 05/12/25 16:57 136 H 15 05/12/25 16:56 132 H 114/91 05/12/25 16:53 114/91 05/12/25 16:53 114/91 05/12/25 16:53 114/91 05/12/25 16:50 128/100 05/12/25 16:49 137 H 05/12/25 16:48 149 H 19 05/12/25 16:47 36.6 C 155 H 17 128/100 Pulse Ox Pulse Ox O2 Del Method O2 Del Method O2 Flow Rate 05/13/25 13:46 94 Room Air 05/13/25 13:36 96 Oxymask 7 05/13/25 11:26 95 Room Air 05/13/25 07:57 93 Room Air 05/13/25 05:45 92 Room Air 05/13/25 03:01 95 Room Air 05/12/25 23:50 95 Room Air 05/12/25 22:41 96 Room Air 05/12/25 22:00 05/12/25 21:18 Room Air 05/12/25 21:18 95 Room Air 05/12/25 21:18 95 Room Air 05/12/25 21:15 95 Room Air 05/12/25 21:02 96 Room Air 05/12/25 20:00 94 Room Air 05/12/25 19:16 95 Room Air 05/12/25 19:01 05/12/25 19:01 05/12/25 19:01 95 Room Air 05/12/25 19:00 96 Room Air 05/12/25 19:00 95 Room Air 05/12/25 18:50 05/12/25 18:46 05/12/25 18:46 05/12/25 18:46 05/12/25 18:45 94 05/12/25 18:42 94 05/12/25 18:34 05/12/25 18:14 05/12/25 18:01 05/12/25 18:00 95 05/12/25 17:51 05/12/25 17:51 05/12/25 17:42 95 05/12/25 17:41 05/12/25 17:41 05/12/25 17:41 05/12/25 17:39 95 05/12/25 17:33 94 05/12/25 17:30 05/12/25 17:30 05/12/25 17:26 05/12/25 17:26 05/12/25 17:20 05/12/25 17:20 05/12/25 17:19 05/12/25 17:18 96 05/12/25 17:12 95 05/12/25 17:11 05/12/25 17:11 05/12/25 17:11 05/12/25 17:11 05/12/25 17:11 05/12/25 17:06 95 05/12/25 17:01 05/12/25 17:01 05/12/25 17:00 92 05/12/25 16:59 05/12/25 16:57 95 05/12/25 16:56 05/12/25 16:53 05/12/25 16:53 05/12/25 16:53 05/12/25 16:50 05/12/25 16:49 05/12/25 16:48 05/12/25 16:47 95 Room Air Transfer of Care Handoff Completed per policy Notes Mental Status: alert / awake / arousable Patient Amnestic to Procedure: Yes Nausea / Vomiting: adequately controlled Pain: adequately controlled Airway Patency, RR, SpO2: stable & adequate BP & HR: stable & adequate Hydration State: stable & adequate Anesthetic Complications: no major complications apparent
--- NOTE | 2025-05-13 14:06 | Communication Note ---
Date of Service: May 13, 2025 Patient tolerated direct-current cardioversion well. Postprocedure EKG reveals sinus bradycardia at 48 bpm. Nonspecific diffuse T wave flattening. Normal axis and intervals. When the images obtained at the time of the transesophageal echocardiogram performed today are compared to [id number] with those obtained in 2022 there is been interval increase in the left atrial size which is felt to be moderately enlarged. At this time I recommend long-term anticoagulation with Eliquis 5 mg twice daily for stroke prophylaxis. Will plan on advancing the patient's diet and reassessing him as he recovers this afternoon and determining if discharge later today is feasible or if he requires another night of observation on telemetry. Kaleb Du ,
--- NOTE | 2025-05-13 16:05 | Hospitalist Progress Note ---
Date of Service May 13, 2025 Assessment & Plan (1) Atrial fibrillation with rapid ventricular response: (2) PAF (paroxysmal atrial fibrillation): Plan: per admitting service notes with addendum: Patient is 69 year old male with PMH PAF, h/o cardioversion in 2020 & 2022, h/o nonischemic cardiomyopathy possibly tachycardia induced, EF improved to 55-59% on stress echo in 02/2023, prostate cancer, depression presented to ER with c/o exertional fatigue x 2 days, similar to prior Afib RVR symptoms. Denies palpitations, CP, dizziness, SOB In ER found be in a-fib RVR rates up to 150's. Was given 2 doses metoprolol tartrate IV, total 10mg. HR continues in 130's. BP: 105/72 Initial high sensitive troponin negative CXR pending Will start Cardizem drip Currently denies symptoms at rest Trend troponin Echo Heparin IV Hold home metoprolol succinate. Start metoprolol tartrate 25 mg Q6H p.o. NPO [facility] Cardiology consult 05/13/2025 remained in A-fib, heart rate 70s Status post YG and cardioversion today Converted to sinus rhythm Transition from diltiazem drip to Toprol-XL 25 mg p.o. in a.m. Transition from heparin drip to Eliquis 5 mg p.o. twice daily #History of cardiomyopathy: Stress echo 02/15/2023: EF: 55-59%, moderate concentric LVH, mild AR, trace mitral and tricuspid insufficiency YG: No thrombus detected in the left atrial appendage, no left atrial mass or thrombus, mild hypo-hypokinesis of the left ventricle, left ventricular systolic function is mildly reduced, EF 40 to 45%, small patent foramen ovale with mild [id number] interatrial shunt (3) Prostate cancer: Plan: Had prostate biopsy on 05/10/[address] Burroughs. Patient reports had hematuria after procedure x2 days. Denies hematuria today. Denies dysuria, pelvic pain, rectal pain, known fever. No leukocytosis UA : Positive for ketones, blood, RBC 6-10, negative for bacteria Repeat UA as an outpatient Denies hematuria while admitted Hemoglobin 14 close outpatient follow-up with urologist (4) Depression: Plan: Continue paroxetine DVT Prophylaxis on Eliquis 5 mg p.o. twice daily Admitted to PCU lives at home Full Code as per discussion with pt Follows with Dr Ren for routine care Admission and Anticipated Discharge Date Admission Date: May 12, 2025 Subjective Follow-up for atrial fibrillation RVR, etc. Seen resting in bed, sleeping but easily awakened In good spirits States he feels better today than yesterday No chest pain, palpitations, dizziness, shortness of breath No other new symptoms Review of Systems Review of Systems: all noted and negative except for above Physical Exam Physical Exam: General- oriented x 3, not in distress, speaks in sentences with no effort or accessory muscle use Eyes- anicteric Neck- no JVD Lungs- clear breath sounds bilaterally, no rales/wheezes Heart- normal rate, Irregularly irregular rhythm; no murmurs Abdomen- normal bowel sounds, nondistended, soft, nontender Extremities- no pretibial edema, no calf tenderness Neuro- alert, oriented x 3; no gross focal neurologic deficits Skin- warm & dry Results & Data Results & Data Vital Signs (Past 12 Hours) Vital Signs Temp Pulse Pulse Resp BP BP Pulse Ox 05/13/25 15:06 52 L 13 104/65 95 05/13/25 14:43 59 L 05/13/25 14:36 52 L 17 129/78 94 05/13/25 14:10 50 L 16 90/61 L 97 05/13/25 13:46 51 L 16 91/70 L 94 05/13/25 13:36 48 L 16 96/51 L 96 05/13/25 11:26 36.5 C 62 21 103/75 95 05/13/25 07:57 36.5 C 72 18 97/70 L 93 05/13/25 05:45 81 16 96/66 L 92 O2 Del Method O2 Flow Rate 05/13/25 15:06 Room Air 05/13/25 14:43 05/13/25 14:36 Room Air 05/13/25 14:10 Room Air 05/13/25 13:46 Room Air 05/13/25 13:36 Oxymask 7 05/13/25 11:26 Room Air 05/13/25 07:57 Room Air 05/13/25 05:45 Room Air all noted and reviewed including below
[2025-05-13 16:27] VITALS: PULSE 55; RESP 16; O2SAT 94
--- NOTE | 2025-05-13 16:55 | Discharge Summary ---
Discharge Summary Date of Service May 13, 2025 Principal Dx & Hospital Course #1 = Principal Diagnosis (1) Atrial fibrillation with rapid ventricular response: (2) PAF (paroxysmal atrial fibrillation): per admitting service notes with addendum: Patient is 69 year old male with PMH PAF, h/o cardioversion in 2020 & 2022, h/o nonischemic cardiomyopathy possibly tachycardia induced, EF improved to 55-59% on stress echo in 02/2023, prostate cancer, depression presented to ER with c/o exertional fatigue x 2 days, similar to prior Afib RVR symptoms. Denies palpitations, CP, dizziness, SOB In ER found be in a-fib RVR rates up to 150's. Was given 2 doses metoprolol tartrate IV, total 10mg. HR continues in 130's. BP: 105/72 Initial high sensitive troponin negative CXR pending Will start Cardizem drip Currently denies symptoms at rest Trend troponin Echo Heparin IV Hold home metoprolol succinate. Start metoprolol tartrate 25 mg Q6H p.o. NPO [facility]iology consult 05/13/2025 remained in A-fib, heart rate 70s Status post YG and cardioversion today Converted to sinus rhythm Transition from diltiazem drip to Toprol-XL 25 mg p.o. in a.m. Transition from heparin drip to Eliquis 5 mg p.o. twice daily Follow-up with cardiology Dr. Sergey Du in 2 weeks #History of cardiomyopathy: Stress echo 02/15/2023: EF: 55-59%, moderate concentric LVH, mild AR, trace mitral and tricuspid insufficiency YG: No thrombus detected in the left atrial appendage, no left atrial mass or thrombus, mild hypo-hypokinesis of the left ventricle, left ventricular systolic function is mildly reduced, EF 40 to 45%, small patent foramen ovale with mild [id number] interatrial shunt (3) Prostate cancer: Had prostate biopsy on 05/10/[address] Burroughs. Patient reports had hematuria after procedure x2 days. Denies hematuria today. Denies dysuria, pelvic pain, rectal pain, known fever. No leukocytosis UA : Positive for ketones, blood, RBC 6-10, negative for bacteria Repeat UA as an outpatient Denies hematuria while admitted Hemoglobin 14 close outpatient follow-up with urologist (4) Depression: Continue paroxetine DVT Prophylaxis on Eliquis 5 mg p.o. twice daily Admitted to PCU D/C home plan of care discussed with patient in detail and at length all questions answered he is understanding, agreeable, comfortable with the plan of care Notes For Next Care Provider Medication Changes From Visit Eliquis 5 mg p.o. twice a day Admission HPI Per Admitting Provider Patient is 69 year old male with PMH PAF, h/o cardioversion in 2020 & 2022, h/o nonischemic cardiomyopathy possibly tachycardia induced, EF improved to 55-59% on stress echo in 02/2023, prostate cancer, depression presented to ER with c/o fatigue x 2 days. Had prostate biopsy 2 days ago and that evening started with fatigue with exertion. Denies noted palpitations, SOB, CP, orthopnea. He went to urgent care today and found to be in a-fib RVR and referred to ER. Patient with h/o recurrent PAF after prostate biopsy in past requiring cardioversion, last in 10/2022. He reports had hematuria after prostate biopsy but denied gross hematuria today. Denies fever/chills, diaphoresis, N/V/D/C, MARIE, dizziness, syncope, cough, sore throat, rhinorrhea, abdominal pain, paresthesias, weakness, extremity edema, rashes, dysuria. Admission Exam Per Admitting Provider General: no distress, WDWN Head: normocephalic, atraumatic Eyes: conjunctiva non-injected, anicteric ENT: normal inspection external ears, nose, mucous membranes moist Neck: supple, trachea midline Lungs: clear, no respiratory distress, no wheezing/rhonchi/rales CV: irregularly irregular, rate 130, no pretibial edema Abd: normal BS, soft, non-tender Ext: no cyanosis, no calf tenderness Neuro: A&O x 3, no focal deficits noted, normal affect Skin: warm, dry Discharge Exam General- oriented x 3, not in distress, speaks in sentences with no effort or accessory muscle use Eyes- anicteric Neck- no JVD Lungs- clear breath sounds bilaterally, no rales/wheezes Heart- normal rate, regular rhythm; no murmurs Abdomen- normal bowel sounds, nondistended, soft, nontender Extremities- no pretibial edema, no calf tenderness Neuro- alert, oriented x 3; no gross focal neurologic deficits Skin- warm & dry Updated Medication List Medication Instructions Recorded Confirmed Type paroxetine HCl 20 mg tablet 20 mg PO QAM 05/12/21 05/12/25 History metoprolol succinate 25 mg 25 mg PO QAM #30 tabs 10/27/22 05/12/25 Rx tablet,extended release 24 hr apixaban 5 mg tablet (Eliquis) 5 mg PO BID 30 days #60 tabs 05/13/25 Rx Hospital Stay Data Consultations 05/12/25 17:55 ED Decision to Admit Stat 05/12/25 21:18 Consult Cardiology Routine 05/13/25 10:50 Consult Anesthesiology Routine Procedures Performed Operation Date: 05/13/25 13:00 Actual Procedures s Echo Doppler Complete - David Du, s Echo Color Flow - DO shiraz Morrison Cardioversion - David Du DO p Echo Transesophageal - David Du DO Diagnostic Imagining Performed Laboratory Results WBC 9.05 K/ul (4.8-10.8) 05/13/25 05:18 RBC 4.48 M/uL (4.70-6.10) L 05/13/25 05:18 Hgb 14.1 g/dl (14.0-18.0) 05/13/25 05:18 Hct 40.7 % (42.0-52.0) L 05/13/25 05:18 MCV 90.8 fL (80.0-100.0) 05/13/25 05:18 MCH 31.5 pg (25.0-34.0) 05/13/25 05:18 MCHC 34.6 g/dL (32.0-36.0) 05/13/25 05:18 RDW Std Deviation 42.0 fL (36.4-46.3) 05/13/25 05:18 RDW Coeff of Rey 13.0 % (11.5-14.5) 05/13/25 05:18 Plt Count 213 K/uL (130-400) 05/13/25 05:18 MPV 10.1 fL (9.4-12.4) 05/13/25 05:18 Immature Gran % (Auto) 0.5 % 05/12/25 16:55 Neut % (Auto) 60.2 % 05/12/25 16:55 Lymph % (Auto) 29.4 % 05/12/25 16:55 Larue % (Auto) 8.0 % 05/12/25 16:55 Eos % (Auto) 1.6 % 05/12/25 16:55 Baso % (Auto) 0.3 % 05/12/25 16:55 Neut # (Auto) 5.71 K/uL (1.40-6.50) 05/12/25 16:55 Lymph # (Auto) 2.79 K/uL (1.20-3.40) 05/12/25 16:55 Larue # (Auto) 0.76 K/uL (0.11-0.59) H 05/12/25 16:55 Eos # (Auto) 0.15 K/uL (0.00-0.50) 05/12/25 16:55 Baso # (Auto) 0.03 K/uL (0.00-0.20) 05/12/25 16:55 Immature Gran # (Auto) 0.05 K/uL (0.01-0.20) 05/12/25 16:55 PT 11.5 Seconds (9.0-12.0) 05/12/25 16:55 INR 1.1 (0.9-1.1) 05/12/25 16:55 APTT 27 Seconds (21-31) 05/12/25 16:55 PTT Ratio 1.0 05/12/25 16:55 Heparin Anti-Xa, Unfract 0.61 IU/ml (0.3-0.7) 05/13/25 01:13 Sodium 138 mmol/L (136-145) 05/13/25 05:18 Potassium 4.2 mmol/L (3.5-5.1) 05/13/25 05:18 Chloride 106 mmol/L (98-107) 05/13/25 05:18 Carbon Dioxide 25 mmol/L (21-32) 05/13/25 05:18 Anion Gap 7 (3-11) 05/13/25 05:18 BUN 18 mg/dl (6-23) 05/13/25 05:18 Creatinine 1.15 mg/dl (0.6-1.4) 05/13/25 05:18 Est Cr Clr Drug Dosing 70.4 ml/min 05/13/25 05:18 eGFR 69.75 05/13/25 05:18 BUN/Creatinine Ratio 15.7 (10-20) 05/13/25 05:18 Glucose 106 mg/dl (70-99(Fasting)) H 05/13/25 05:18 Calcium 8.6 mg/dl (8.6-10.3) 05/13/25 05:18 Magnesium 2.4 mg/dl (1.7-2.4) 05/13/25 05:18 Total Bilirubin 1.0 mg/dl (0.2-1.0) 05/12/25 16:55 AST 22 U/L (13-39) 05/12/25 16:55 ALT 20 U/L (7-52) 05/12/25 16:55 Alkaline Phosphatase 53 U/L (34-104) 05/12/25 16:55 Troponin I High Sens 4.6 pg/ml (0-20) 05/12/25 16:55 Total Protein 7.2 gm/dl (6.0-8.3) 05/12/25 16:55 Albumin 4.0 gm/dl (3.4-5.0) 05/12/25 16:55 Globulin 3.2 gm/dl (2.5-4.0) 05/12/25 16:55 Albumin/Globulin Ratio 1.3 (0.9-2) 05/12/25 16:55 TSH 1.318 uIu/ml (0.300-4.500) 05/12/25 16:55 Urine Color Yellow 05/12/25 20:55 Urine Appearance Clear (Clear) 05/12/25 20:55 Urine pH 5.0 (4.5-7.5) 05/12/25 20:55 Ur Specific [place] 1.018 (1.000-1.030) 05/12/25 20:55 Urine Protein Negative (Negative) 05/12/25 20:55 Urine Glucose (UA) Negative (Negative) 05/12/25 20:55 Urine Ketones Trace (Negative) H 05/12/25 20:55 Urine Blood Trace (Negative) H 05/12/25 20:55 Urine Nitrite Negative (Negative) 05/12/25 20:55 Urine Bilirubin Negative (Negative) 05/12/25 20:55 Urine Urobilinogen Negative (Negative) 05/12/25 20:55 Ur Leukocyte Esterase Negative (Negative) 05/12/25 20:55 Urine WBC (Auto) 0-5 /hpf (0-5) 05/12/25 20:55 Urine RBC (Auto) 6-10 /hpf (0-2) H 05/12/25 20:55 U Hyaline Cast (Auto) 0-2 /lpf (0-2) 05/12/25 20:55 U Epithel Cells (Auto) 0-2 /hpf (0-2) 05/12/25 20:55 Urine Bacteria (Auto) None Seen (None Seen) 05/12/25 20:55 Urine Comment 05/12/25 20:55 Impressions Chest X-Ray 05/12/25 18:23 EXAM: Portable AP chest radiograph TECHNIQUE: AP portable radiograph of the chest was obtained. INDICATION: Chest pain Comparison: None FINDINGS: LINES and TUBES: None CARDIOVASCULAR: Cardiac silhouette is mildly enlarged in size. LUNGS/PLEURA: No focal consolidation identified. No significant pleural fluid. No discernible pneumothorax. OSSEOUS/OTHER: No displaced acute osseous process identified. IMPRESSION: Mildly enlarged cardiac silhouette. Otherwise no radiographic evidence of acute cardiopulmonary process. Electronically signed by Shahab Panchal 05-12-2025 7:03 PM Pending Results Patient Have Any Pending Studies at Discharge: No Discharge Instructions Given to Patient (Per Discharging Provider) PLEASE REFER TO YOUR NEW MEDICATION LIST AND FOLLOW INSTRUCTIONS CAREFULLY. YOUR NEW MEDICATIONS INCLUDE: Eliquis-blood thinner for stroke prevention if you experience any head trauma, you need to go to the emergency room immediately for evaluation including a CAT scan of your head to rule out bleeding inside the brain. PLEASE CALL YOUR PRIMARY CARE PHYSICIAN OR RETURN TO THE ER IF WITH WORSENING OF SYMPTOMS, INCLUDING Chest pain, shortness of breath, palpitations, dizziness, lightheadedness, etc. FOLLOW UP WITH PRIMARY CARE PHYSICIAN in 1 week. Follow-up with [facility] drilling inspector Dr. David Du in 2 weeks. The clinic will be calling you for the appointment. Total Time Total Time Spent Total Time Spent (In Minutes): 50 minutes
[2025-05-13 17:01] VITALS: BP 91/70
--- NOTE | 2025-05-13 17:41 | Electrocardiogram Report ---
Test Reason : Blood Pressure : */* mmHG Vent. Rate : 48 BPM Atrial Rate : 48 BPM P-R Int : 132 ms QRS Dur : 94 ms QT Int : 484 ms P-R-T Axes : -24 36 25 degrees QTcB Int : 432 ms Sinus bradycardia Nonspecific ST abnormality Abnormal ECG When compared with ECG of 13-May-2025 06:48, Sinus rhythm has replaced Atrial fibrillation Vent. rate has decreased by 28 bpm Confirmed by Junior Richardson ([id number] on 05/13/2025 5:41:15 PM Referred By: REFERRED SELF Confirmed By: Junior Richardson
[2025-05-13] MEDS ORDERED: APIXABAN 5 MG TABLET PO SCH (21:00)
[2025-05-14] MEDS ORDERED: METOPROLOL SUCC 25MG EXT REL TAB PO SCH (09:00)
== END 2025-05-13 17:20 | disposition home or self-care (01) | DRG 310 ==
LOC: ED 16:41 → SUATTDRO 18:21 → 2E 18:21